=== PATIENT | male | born 1940 | race Caucasian/White ===

== ENCOUNTER → 2016-05-06 | Outpatient (CLI) | payer MEDICARE ==
--- NOTE | 2016-05-06 16:00 | US ---
EXAMINATION TYPE: US scrotum with doppler. Grayscale and color Doppler Duplex imaging performed of juan ramon carlos scrotum. DATE OF EXAM: 05/06/2016 3:28 PM COMPARISON: NONE CLINICAL HISTORY: hematospermia. EXAM MEASUREMENTS: TESTICLES: Right Testicle: 5.5 x 3.6 x 3.6 cm cm Left Testicle: 5.4 x 3.6 x 3.4 cm cm EPIDIDYMIS HEAD: Right Epididymis: 1.5 x 0.9 cm cm Left Epididymis: 1.4 x 1.1 cm cm Doppler performed to assess for testicular vascularity; good bilateral color flow and waveforms are s een. There is no evidence of testicular torsion. Presence of hydroceles: bilaterally, right measures 5.6 x 3.5 x 5.3 cm, left measures 6.1 x 2.4 x 4 .5 cm IMPRESSION: bilateral hydroceles.
== END | disposition home or self-care (01) ==
LOC: RADUSWWP 14:57
PROVIDERS: ATTEND Internal Medicine
DX: N43.3 Hydrocele, unspecified (principal); R36.1 Hematospermia
CPT/HCPCS: 76870; 93975

== ENCOUNTER → 2017-01-17 | Outpatient (CLI) | payer MEDICARE ==
[~2017-01-17] MED LIST: REGADENOSON 0.4 MG/5 ML SYRINGE IV ONE
--- NOTE | 2017-01-17 12:04 | NM ---
EXAMINATION TYPE: NM stress lexiscan cardiolite DATE OF EXAM: 01/17/2017 COMPARISON: NONE HISTORY: Chest pain TECHNIQUE: After the intravenous administration of 9.92 mCi Tc 99m Sestamibi - Cardiolite resting SP ECT images acquired 45 minutes post injection. The patient received 0.4mg Lexiscan, 25.7 mCi Tc 99m Sestamibi - Stress images obtained [address] injection FINDINGS: Review of stress and rest SPECT images demonstrates fixed defect involving the inferior wall the myoc ardium which may be artifactual. Imaging suggestive apical lateral reversible defect which may be art ifactual. Gated analysis shows normal wall motion with an estimated left ventricular ejection fracti on of 63 %. IMPRESSION: 1. Findings suggesting reversed defect apical lateral wall. This may be artifactual correlate [facility] [place].
--- NOTE | 2017-01-17 12:24 | EST ---
EXERCISE STRESS DATE OF SERVICE: 01/17/2017 AGE: 76 SEX: Male HT: 5'9" WT: 256 PROTOCOL: Lexiscan Cardiolite STAGE: DURATION OF EXERCISE: HEART RATE REST: 95 BLOOD PRESSURE REST: 154/85 MAXIMUM HEART RATE ACHIEVED: 127 MAXIMUM BLOOD PRESSURE: 157/91 85% MPHR: 122 100% MPHR: 144 METS: INDICATIONS: CLINICAL INFORMATION: Patient referred by Dr. Casas for stress test. History of coronary artery disease, coronary artery bypass grafting, history of atrial fibrillation and PVCs. Baseline heart rate 95 beats per minute. Baseline blood pressure 154/85 mmHg. Baseline 12-lead ECG shows atrial fibrillation with ST depression consistent with digoxin effect. The patient received Lexiscan infusion per protocol. During Lexiscan infusion, there was further ST depression noted which was further downsloping. Occasional PVCs are noted. Blood pressure and heart rate remained stable. Nuclear portion of stress test will be reported separately. IMPRESSION: 1. Baseline abnormality in the [address] depression consistent with digoxin effect. 2. Further worsening of ST depressions, downsloping at least 2 mm during Lexiscan infusion. Possibly an ischemic response. 3. Occasional PVCs. 4. Baseline atrial fibrillation. 5. Please see nuclear report separately. MMODL / IJN: [id number] /
== END ==
LOC: RADNMMAIN 07:59
PROVIDERS: ATTEND Internal Medicine
DX: I25.719 Atherosclerosis of autologous vein coronary artery bypass graft(s) with unspecified angina pectoris (principal); I48.91 Unspecified atrial fibrillation
CPT/HCPCS: 93017; 78452; A9500; J2785

== ENCOUNTER → 2017-05-20 | Outpatient (CLI) | payer MEDICARE ==
[2017-05-20 11:17] LABS: Prostate Specific Antigen 2.05 ng/mL (0.00-4.00)
[2017-05-20 11:18] LABS: Basophils % (A) 1 %; Eosinophils # (A) 0.2 k/uL (0-0.7); Eosinophils % (A) 2 %; HCT 40.6 % (39.0-53.0); HGB 13.1 gm/dL (13.0-17.5); Lymphocytes # (A) 1.4 k/uL (1.0-4.8); Lymphocytes % (A) 18 %; MCH 28.9 pg (25.0-35.0); MCHC 32.3 g/dL (31.0-37.0); MCV 89.5 fL (80.0-100.0); Mean Platelet Volume 7.9; Monocytes # (A) 0.6 k/uL (0-1.0); Monocytes % (A) 8 %; Neutrophils # (A) 5.2 k/uL (1.3-7.7); Neutrophils % (A) 69 %; Platelet Count 170 k/uL (150-450); RBC 4.53 m/uL (4.30-5.90); RDW 14.6 % (11.5-15.5); WBC 7.5 k/uL (3.8-10.6)
[2017-05-20 11:38] LABS: ALT 47 U/L (21-72); AST 24 U/L (17-59); Albumin 3.8 g/dL (3.5-5.0); Alkaline Phosphatase 68 U/L (38-126); Anion Gap 11 mmol/L; Blood Urea Nitrogen 16 mg/dL (9-20); Calcium 9.8 mg/dL (8.4-10.2); Carbon Dioxide 30 mmol/L (22-30); Chloride 102 mmol/L (98-107); Cholesterol 110 mg/dL (<200); Creatine Kinase 42 U/L (55-170); Glucose 128 mg/dL (74-99); HDL Cholesterol 35 mg/dL (40-60); LDL Cholesterol,Calculated 51 mg/dL (0-99); Magnesium 2.2 mg/dL (1.6-2.3); Potassium 4.8 mmol/L (3.5-5.1); Sodium 143 mmol/L (137-145); Total Bilirubin 0.6 mg/dL (0.2-1.3); Total Protein 6.3 g/dL (6.3-8.2); Triglycerides 118 mg/dL (<150); Uric Acid 7.1 mg/dL (3.5-8.5)
[2017-05-20 11:54] LABS: T4, Free (Free Thyroxine) 1.05 ng/dL (0.78-2.19)
[2017-05-20 13:13] LABS: Appearance,Urine Clear (Clear); Bilirubin,Urine Negative (Negative); Blood,Urine Negative (Negative); Color,Urine Yellow; Glucose,Urine (UA) Negative (Negative); Hyaline Casts,Urine 6 /lpf (0-2); Ketones,Urine Negative (Negative); Leukocyte Esterase,Urine Trace (Negative); Mucus,Urine Rare /hpf; Nitrite,Urine Negative (Negative); Protein,Urine 2+ (Negative); RBC,Urine 3 /hpf (0-5); Specific Gravity,Urine 1.017 (1.001-1.035); Squamous Epithelial Cell,Urine <1 /hpf (0-4); Urobilinogen,Urine <2.0 mg/dL (<2.0); WBC,Urine 7 /hpf (0-5)
[2017-05-20 17:24] LABS: Hemoglobin A1C 5.9 % (4.0-6.0)
== END | disposition home or self-care (01) ==
LOC: LABWHC1 09:51
PROVIDERS: ATTEND Internal Medicine
DX: Z00.00 Encounter for general adult medical examination without abnormal findings (principal); E78.00 Pure hypercholesterolemia, unspecified; I25.719 Atherosclerosis of autologous vein coronary artery bypass graft(s) with unspecified angina pectoris; E03.9 Hypothyroidism, unspecified; N40.0 Benign prostatic hyperplasia without lower urinary tract symptoms; I10 Essential (primary) hypertension
CPT/HCPCS: 36415; 80053; 80061; 81001; 82306; 82550; 83036; 83735; 84153; 84439; 84443; 84550; 85025

== ENCOUNTER → 2017-11-11 | Outpatient (CLI) | payer MEDICARE ==
--- NOTE | 2017-11-11 19:02 | PN ---
PROGRESS NOTE Jason is 77, coming in for followup regarding his obstructive sleep apnea treatment. The patient has severe ANAYA with an AHI of 79. The patient is coming in for a followup and a compliancy check regarding his sleep apnea. The patient was titrated to a CPAP pressure of 12 cm of water. He is reporting marked improvement in his sleep quality in general. His snoring has completely subsided and the patient is not having any snoring. He is using a DreamWear nose mask and he is interested in alternative masks, knowing that he is having some difficulty sleeping on his side or on his face while using this current mask. I checked the compliance data and based on the findings, the patient has been averaging around 5.9 hours of CPAP use per night her. His CPAP use for more than 4 hours is 27/30. Leak factor is 5 L/minute. AHI while on treatment is down to 3.7. The treatment has been extremely successful and the patient is feeling great, alert and refreshed during the day. Current [place] score is down to 4. His current vitals: His blood pressure 128/81, pulse 76, respirations 16, temperature 98.1 weight 264. GENERAL APPEARANCE: Calm, comfortable. No acute distress. Head is atraumatic, normocephalic. NECK: Supple. There is no JVD. No goiter or neck masses. LUNGS: Diminished breath sounds bilaterally, otherwise clear. HEART: Sounds are regular rate and rhythm. Normal S1, S2. No S3. No murmurs. ABDOMEN: Soft, nontender. No organomegaly. EXTREMITIES: No edema. No cyanosis or clubbing. NEUROLOGIC: Alert and oriented x3. There are no focal neurological deficits. PSYCHIATRIC: Negative for anxiety or depression. IMPRESSION: 1. Severe symptomatic obstructive sleep apnea with an apnea-hypopnea index of 79. The patient undergoing successful CPAP therapy. 2. Hypertension. 3. Atrial fibrillation. 4. Coronary artery disease with previous bypass surgery. PLAN: 1. Continue CPAP therapy at the same level of pressure which is 12. 2. Clinically improved. 3. Compliance that was checked and the numbers looked great. 4. Encourage weight loss. 5. Continue the DreamWear mask and the patient was given alternative mask which is a medium-size AirFit and N20 nose mask. He liked this mask and he is considering a switch to it at a later stage. Will continue to follow. MMODL / IJN: [id number] /
== END | disposition home or self-care (01) ==
LOC: SLEEP 15:02
PROVIDERS: ATTEND Internal Medicine Critical Care Medicine
DX: G47.33 Obstructive sleep apnea (adult) (pediatric) (principal); I10 Essential (primary) hypertension; I48.91 Unspecified atrial fibrillation; I25.10 Atherosclerotic heart disease of native coronary artery without angina pectoris; Z99.89 Dependence on other enabling machines and devices

== ENCOUNTER 2018-07-15 11:48 | Emergency (ER) | payer MEDICARE ==
[2018-07-15] MEDS ORDERED: OXYMETAZOLINE 0.05% NASL SPRAY 1 SPRAY BOTTLE NASAL STA (11:56)
--- NOTE | 2018-07-15 12:08 | ED ---
ENT HPI - General Chief complaint: ENT Stated complaint: Nosebleed Time Seen by Provider: 07/15/18 11:56 Source: patient Mode of arrival: ambulatory Limitations: no limitations - History of Present Illness Initial comments: 78-year-old male presents today for chief complaint of nosebleed. Patient states that he has had on and off bleeding of the anterior nare, left sided for the past 3-4 months. She began experiencing nosebleeds on and off 3 times week since March. He states he has seen Dr. Kline for the complaint, ENT specialist who stated it was an anterior bleed due to combination of dry air and patient being on any anticoagulation therapy, xarelto for atrial fibrillation. Patient states that today he began experiencing a nosebleed around 11:30 AM. He states he called Dr. Graham's office who stated they could not fit patient into the schedule until July 27, and was told if he persists to present to the emergency department. Patient stated he used a few doses of Afrin and placed tampon in nose prior to arrival. Patient denies any recent fever, chills, shortness of breath, chest pain, back pain, abdominal pain, nausea or vomiting, numbness or tingling, dysuria or hematuria, constipation or diarrhea, headaches or visual changes, or any other complaints. Patient states he has been using a humidifier at home. Upon arrival patient VS within acceptable limits, appearing well. - Related Data Home Medications Medication Instructions Recorded Confirmed Allopurinol [Zyloprim] 100 mg PO DAILY 03/22/14 07/15/18 Metoprolol Tartrate [Lopressor] 50 mg PO BID 03/22/14 07/15/18 Ramipril 10 mg PO DAILY 03/22/14 07/15/18 Rivaroxaban [Xarelto] 20 mg PO HS 03/22/14 07/15/18 amLODIPine [Norvasc] 5 mg PO DAILY 03/22/14 07/15/18 Calcium Carbonate [Calcium] 600 mg PO DAILY 07/15/18 07/15/18 Furosemide [Lasix] 40 mg PO DAILY 07/15/18 07/15/18 L.acidoph,Paracasei, B.lactis 1 cap PO DAILY 07/15/18 07/15/18 [Probiotic] Levothyroxine Sodium [Synthroid] 300 mcg PO MOTUWETHFRSA 07/15/18 07/15/18 Multivitamin/Iron/Folic Acid 1 tab PO DAILY 07/15/18 07/15/18 [Centrum Complete Multivit Tab] Potassium Chloride [Klor-Con 20] 20 meq PO DAILY 07/15/18 07/15/18 Simvastatin [Zocor] 40 mg PO DAILY 07/15/18 07/15/18 Vit C/E/Zn/Coppr/Lutein/Zeaxan 1 cap PO BID 07/15/18 07/15/18 [Preservision Areds 2 Softgel] Allergies Allergy/AdvReac Type Severity Reaction Status Date / Time No Known Allergies Allergy Verified 07/15/18 12:10 Review of Systems ROS Statement: Those systems with pertinent positive or pertinent negative responses have been documented in the HPI. ROS Other: All systems not noted in ROS Statement are negative. Past Medical History Past Medical History: Atrial Fibrillation, Asthma, Cancer, Hypertension, Thyroid Disorder Additional Past Medical History / Comment(s): THYROID CANCER-1981, Nose bleeds History of Any Multi-Drug Resistant Organisms: None Reported Past Surgical History: Cholecystectomy, Coronary Bypass/CABG Additional Past Surgical History / Comment(s): CABG-2006. THYROIDECTOMY 1981. COLONOSCOPY. REPAIR TORN RETINA-JULY 2013 Past Anesthesia/Blood Transfusion Reactions: No Reported Reaction Past Psychological History: No Psychological Hx Reported Smoking Status: Former smoker Past Alcohol Use History: Occasional Past Drug Use History: None Reported - Past Family History Mother Family Medical History: Cancer General Exam - General Exam Comments Initial Comments: General: The patient is awake and alert, in no distress, and does not appear acutely ill. Eye: Pupils are equal, round and reactive to light, extra-ocular movements are intact. No nystagmus. There is normal conjunctiva bilaterally. No signs of icterus. Ears, nose, mouth and throat: There are moist mucous membranes and no oral lesions. Blood from left nare. No identifiable cause. No blood in oropharynx. Cardiovascular: There is a regular rate and rhythm. No murmur, rub or gallop is appreciated. Respiratory: Lungs are clear to auscultation, respirations are non-labored, breath sounds are equal. No wheezes, stridor, rales, or rhonchi. Musculoskeletal: Normal ROM, no tenderness. Strength 5/5. Sensation intact. Radial pulses equal bilaterally 2+. Neurological: A&O x 3. CN II-XII intact, There are no obvious motor or sensory deficits. Coordination appears grossly intact. Speech is normal. Skin: Skin is warm and dry and no rashes or lesions are noted. Psychiatric: Cooperative, appropriate mood & affect, normal judgment. Limitations: no limitations Course Vital Signs 07/15/18 07/15/18 11:49 12:59 Temperature 97.8 F 98.2 F Pulse Rate 76 81 Respiratory 18 19 Rate Blood Pressure 142/83 138/74 O2 Sat by Pulse 98 97 Oximetry Medical Decision Making - Medical Decision Making 78-year-old male presenting for nosebleed. Patient diagnosed with anterior nosebleed by ENT. Upon arrival patient had tampon inserted and nose, patient instructed to blow, afrin administered then clamp applied. I did reevaluate following pressure there was no evidence of active bleeding, identifiable source. There is no evidence of posterior epistaxis 6 on examination no blood in the oropharynx. Patient appears well vital signs within acceptable limits. Patient was monitored in the emergency department for additional 40 minutes after bleeding had subsided. No active bleeding. I discussed preventative methods for anterior epistaxis as well as importance of follow-up. At this time I feel patient is stable for discharge with outpatient follow-up with ENT st. were discussed with patient. I discussed the case attended by Dr. Carney was agreeable plan discharge. Patient denies questions at this time. Patient discharged appearing well. Disposition Clinical Impression: Nasal bleeding Disposition: HOME SELF-CARE Condition: Good Instructions (If sedation given, give patient instructions): Nosebleed (ED) Additional Instructions: Please use medication as discussed. Please follow-up with DR. Grigsby in July 27 as discussed. Please follow-up with primary care provider in next 2-3 days. Please return to emergency room if the symptoms increase or worsen or for any other concerns. Is patient prescribed a controlled substance at d/c from ED?: No Referrals: Bertin Casas MD [Primary Care Provider] - 1-2 days Demetrio Estrada MD [STAFF PHYSICIAN] - 1-2 days Time of Disposition: 12:35
[2018-07-15 13:00] VITALS: BP 138/74; PULSE 81; RESP 19; TEMP 98.2
== END 2018-07-15 13:00 | disposition home or self-care (01) ==
LOC: EC 11:48
DX: R04.0 Epistaxis (principal); I48.91 Unspecified atrial fibrillation; I10 Essential (primary) hypertension; Z87.891 Personal history of nicotine dependence; Z79.01 Long term (current) use of anticoagulants; Z79.890 Hormone replacement therapy; Z79.899 Other long term (current) drug therapy; Z85.850 Personal history of malignant neoplasm of thyroid; E89.0 Postprocedural hypothyroidism; Z95.1 Presence of aortocoronary bypass graft
CPT/HCPCS: 99283

== ENCOUNTER → 2018-09-14 | Outpatient (CLI) | payer MEDICARE ==
--- NOTE | 2018-09-14 16:36 | CT ---
EXAMINATION TYPE: CT brain wo con DATE OF EXAM: 09/14/2018 COMPARISON: None INDICATION: Acute posttraumatic headache, fall one week prior DLP: 1177 mGycm, Automated exposure control for dose reduction was used. CONTRAST: None CT of the brain is performed utilizing 3 mm thick sections through the posterior fossa and 3 mm thick sections through the remaining calvarium. Study is performed within 24 hours of arrival to the hosp [place]. No abnormal hyperdensity is present to suggest an acute intracranial hemorrhage. No mass lesion is evident. No acute infarcts are evident. Ventricles and sulci are prominent for the patient age. There is a patent cavum septum lucidum, norm al variant. Paranasal sinuses and mastoid air cells within the [id number] are clear. IMPRESSIONS: 1. Mild age-related atrophy. 2. No acute or subacute changes evident
== END | disposition home or self-care (01) ==
LOC: RADCTMAIN 16:17
PROVIDERS: ATTEND Internal Medicine
DX: G31.1 Senile degeneration of brain, not elsewhere classified (principal)
CPT/HCPCS: 70450

== ENCOUNTER → 2019-02-02 | Outpatient (CLI) | payer MEDICARE ==
--- NOTE | 2019-02-02 15:47 | PN ---
PROGRESS NOTE A 78-year-old male patient seeing me in followup regarding obstructive sleep apnea. The patient has severe ANAYA with an AHI of 79 and continues to be treated with a CPAP pressure of 12 cm of water. He is using an Air Fit N20 medium-size nose mask. His weight has been stable. He is extremely compliant. Based on the compliance data, the patient has been averaging around 6 hours of CPAP use per night and his CPAP use for more than 4 hours is 100%. Leak is 11 L/minutes. His AHI is down to 1.2. No major hypersomnia or sleepiness during the day. He is awake and alert and his [place] score is down to 2. No difficulties in tolerating his CPAP unit and the machine is functional and the patient is benefitting from the treatment. REVIEW OF SYSTEMS: A 14-point review of system was done. Positive findings are mentioned in history of present illness. PHYSICAL EXAMINATION: BP is 135/92, pulse 61, respirations 16, temperature 98.1, saturation 97% on room air. Weight is 266. Height is 5,7. [place] score is 4, BMI is 41.6. GENERAL APPEARANCE: Calm comfortable. HEENT: Head is atraumatic, normocephalic. NECK: Supple. No JVD. No goiter or neck mass. Mallampati class IV. LUNGS: Clear to auscultation. HEART: Sounds regular rate and rhythm. Normal S1, S2. No murmurs. ABDOMEN: Soft, nontender. No organomegaly. EXTREMITIES: No edema. No cyanosis or clubbing. NEUROLOGIC: Alert and oriented x3. No focal neurological deficits. PSYCHIATRIC: Negative for anxiety or depression. IMPRESSION: Obstructive sleep apnea, severe with an apnea-hypopnea index of 79, currently on CPAP with a pressure of 12 with ongoing success in terms of his clinical response and compliance. PLAN: 1. Encourage weight loss. 2. Continue CPAP at same level of pressure which is 12. 3. Refill the Air Fit N20 medium-size nose mask. 4. Implement good sleep hygiene measures. 5. Will continue to follow treatment successfully, refills were given. MMODL / IJN: [id number] /
== END | disposition home or self-care (01) ==
LOC: SLEEP 13:15
PROVIDERS: ATTEND Internal Medicine Critical Care Medicine
DX: G47.33 Obstructive sleep apnea (adult) (pediatric) (principal); Z99.89 Dependence on other enabling machines and devices

== ENCOUNTER 2019-08-20 17:07 | Emergency (ER) | payer MEDICARE ==
[2019-08-20] MEDS ORDERED: LIDOCAINE 1%-EPI 1:100,000 20 ML VIAL SQ STA (17:22)
[2019-08-20] MEDS ORDERED: DIPH,PERTUS(ACELL)TETVAC-LF 0.5 ML VIAL IM ONE (17:23)
[2019-08-20 17:26] VITALS: RESP 18; TEMP 98.1
--- NOTE | 2019-08-20 17:47 | ED ---
General Adult HPI - General Chief complaint: Fall Stated complaint: fall Time Seen by Provider: 08/20/19 17:22 Source: patient, RN notes reviewed Mode of arrival: wheelchair Limitations: no limitations - History of Present Illness Initial comments: 79-year-old male with a past medical history of atrial fibrillation currently on Xarelto, asthma, thyroid cancer, hypertension presents to the emergency department for a chief complaint of head injury. Patient was standing earlier when he lost his footing and tripped falling and hitting the front of his head. He states at that time he was carrying items into the garage. Patient did not lose consciousness. Patient denies neck pain. Patient denies any dizziness or lightheadedness preceding this fall. Denies any chest pain preceding this fall. Patient states he feels completely fine at this point.Patient has no other complaints at this time including shortness of breath, chest pain, abdominal pain, nausea or vomiting, headache, or visual changes. - Related Data Home Medications Medication Instructions Recorded Confirmed Allopurinol [Zyloprim] 100 mg PO DAILY 03/22/14 08/20/19 Metoprolol Tartrate [Lopressor] 50 mg PO BID 03/22/14 08/20/19 RX: Ramipril 10 mg PO DAILY 03/22/14 08/20/19 Rivaroxaban [Xarelto] 20 mg PO HS 03/22/14 08/20/19 amLODIPine [Norvasc] 5 mg PO DAILY 03/22/14 08/20/19 Calcium Carbonate [Calcium] 600 mg PO DAILY 07/15/18 08/20/19 Furosemide [Lasix] 40 mg PO DAILY 07/15/18 08/20/19 L.acidoph,Paracasei, B.lactis 1 cap PO DAILY 07/15/18 08/20/19 [Probiotic] Levothyroxine Sodium [Synthroid] 300 mcg PO DAILY 07/15/18 08/20/19 Multivitamin/Iron/Folic Acid 1 tab PO DAILY 07/15/18 08/20/19 [Centrum Complete Multivit Tab] Potassium Chloride [Klor-Con 20] 20 meq PO DAILY 07/15/18 08/20/19 Simvastatin [Zocor] 40 mg PO DAILY 07/15/18 08/20/19 Vit C/E/Zn/Coppr/Lutein/Zeaxan 1 cap PO BID 07/15/18 08/20/19 [Preservision Areds 2 Softgel] Acetaminophen Tab [Tylenol Tab] 1,000 mg PO ONCE PRN 08/20/19 08/20/19 Allergies Allergy/AdvReac Type Severity Reaction Status Date / Time No Known Allergies Allergy Verified 08/20/19 19:24 Review of Systems ROS Statement: Those systems with pertinent positive or pertinent negative responses have been documented in the HPI. ROS Other: All systems not noted in ROS Statement are negative. Past Medical History Past Medical History: Atrial Fibrillation, Asthma, Cancer, Hypertension, Thyroid Disorder Additional Past Medical History / Comment(s): THYROID CANCER-1981, Nose bleeds History of Any Multi-Drug Resistant Organisms: None Reported Past Surgical History: Cholecystectomy, Coronary Bypass/CABG, Joint Replacement, Orthopedic Surgery Additional Past Surgical History / Comment(s): CABG-2006. THYROIDECTOMY 1981. COLONOSCOPY. REPAIR TORN RETINA-JULY 2013. knee replacemnt Past Anesthesia/Blood Transfusion Reactions: No Reported Reaction Past Psychological History: No Psychological Hx Reported Smoking Status: Former smoker Past Alcohol Use History: Occasional Past Drug Use History: None Reported - Past Family History Mother Family Medical History: Cancer General Exam Limitations: no limitations General appearance: alert, in no apparent distress Head exam: Present: normocephalic, normal inspection. Absent: atraumatic Eye exam: Present: normal appearance, PERRL, EOMI. Absent: scleral icterus, conjunctival injection, periorbital swelling ENT exam: Present: normal exam, normal oropharynx (Teeth are intact), mucous membranes moist Neck exam: Present: normal inspection, full ROM. Absent: tenderness, meningismus, lymphadenopathy Respiratory exam: Present: normal lung sounds bilaterally. Absent: respiratory distress, wheezes, rales, rhonchi, stridor Cardiovascular Exam: Present: regular rate, normal rhythm, normal heart sounds. Absent: systolic murmur, diastolic murmur, rubs, gallop, clicks GI/Abdominal exam: Present: soft, normal bowel sounds. Absent: distended, tenderness, guarding, rebound, rigid Extremities exam: Present: other (Moving all extremities without difficulty) Back exam: Absent: vertebral tenderness (No thoracic or lumbar spine tenderness) Neurological exam: Present: alert, oriented X3, normal gait, other (GCs 15) Course Vital Signs 08/20/19 08/20/19 17:18 17:54 Temperature 98.1 F Pulse Rate 107 H 108 H Respiratory 18 18 Rate Blood Pressure 133/84 133/84 O2 Sat by Pulse 97 97 Oximetry Procedures - Laceration Laceration #1 Consent Obtained: verbal consent Indication: laceration Site: face Size (cm): 8 Description: linear Depth: simple, single layer Anesthetic Used: lidocaine 1%, with epi Anesthesia Technique: local infiltration Amount (mls): 8 Pre-repair: wound explored, irrigated extensively, deep structures intact Type of Sutures: other (ethilon) Size of Sutures: 5-0 Number of Sutures: 12 Technique: simple, interrupted Patient Tolerated Procedure: well, no complications Medical Decision Making - Medical Decision Making Patient presents for fall from standing. Fall was purely mechanical. States he was carrying some things in his carotid when he tripped and fell forward hitting his head on the car. He did not have any lightheadedness, chest pain, shortness of breath preceding this fall. CT brain showed mild periventricular white matter ischemic changes with soft tissue swelling to the frontal region. CT cervical spine showed no acute osseous abnormality. CT showed no acute facial fractures. Sutures were applied to the area and wound was well approximated. Bleeding controlled. Patient will follow up with primary care and will return here in 7-10 days for suture removal. Disposition Clinical Impression: Fall, Head injury, Laceration Disposition: HOME SELF-CARE Condition: Good Instructions (If sedation given, give patient instructions): Care For Your Stitches (ED), Laceration (ED), Head Injury (ED) Additional Instructions: Please return in 7-10 days for suture removal. You have 12 sutures placed. Follow-up with your doctor in one to 2 days for a recheck. If you have any worsening symptoms or signs of infection return to the emergency department. Is patient prescribed a controlled substance at d/c from ED?: No Referrals: Bertin Casas MD [Primary Care Provider] - 1-2 days Time of Disposition: 19:39
--- NOTE | 2019-08-20 17:56 | CT ---
EXAMINATION TYPE: CT brain raquel portillo con DATE OF EXAM: 08/20/2019 COMPARISON: 09/14/2018 HISTORY: Lip laceration from fall injury CT DLP: 1250.6 mGycm, Automated exposure control for dose reduction was used. CONTRAST: Patient injected with 0 mL of Isovue 300. CT of the brain is performed utilizing 3 mm thick sections through the posterior fossa and 3 mm thick sections through the remaining calvarium. Study is performed within 24 hours of arrival to the hospital. There is soft tissue swelling over the frontal region. No abnormal hyperdensity is present to suggest an acute intracranial hemorrhage. No mass lesion is evident. No acute infarcts are evident. Mild periventricular white matter hypodensity may be present compatib le with microvascular ischemic change. Ventricles and sulci are appropriate for the patient age. There are patent cavum septum lucidum and c avum vergae, normal variants. Paranasal sinuses and mastoid air cells within the [id number] are clear. No acute fractures are ev ident. Nasal bridge appears intact. Additional osseous structures are normal. Paranasal sinuses and m astoid air cells are clear. IMPRESSIONS: 1. Mild periventricular white matter ischemic type changes. 2. Superficial soft tissue swelling frontal region CT cervical spine. COMPARISON: None CT of the cervical spine is performed in the axial plane at 2 mm thick sections. Reconstructed image s in the coronal, and sagittal plane are reviewed on the computer. No acute fractures are evident. Vertebral body alignment is normal. Disc space narrowing is present C5-6 C6-7. Anterior vertebral body spurring is present at these level s. Some posterior endplate spurring is present C6-7. Vertebral body heights are preserved. Left foraminal narrowing at C3-4 is present due to facet hypertrophy. Endplate changes may have mild anterior thecal sac compression at C6-7. IMPRESSIONS: 1. No acute osseous abnormality cervical spine. 2. Degenerative changes disc and foramen discussed above.
--- NOTE | 2019-08-20 17:58 | CT ---
EXAMINATION TYPE: CT facial bones wo con DATE OF EXAM: 08/20/2019 COMPARISON: None HISTORY: Lip laceration after fall injury CT DLP: 1250.6 mGycm CONTRAST: None mL of Facial bones are examined in the axial plane at 2 mm thick sections. Reconstructed images in the [place] nal plane are reviewed. There is dental amalgam scatter artifact The maxillary sinuses are clear. Maxillary spine is intact. The ethmoid air cells are clear. The sph enoid sinuses are clear. The frontal sinuses are clear. Zygomatic arches are intact. Nasal bones ar e intact. Greater wings of sphenoid are unremarkable. Soft tissue swelling over the frontal region is noted. No underlying fracture is evident. Temporomandibular junctions appear normal. The septum is evaluated. There is septal deviation to the right. The ostiomeatal units are patent. IMPRESSIONS: 1. No acute fractures facial bones.
[2019-08-20 19:51] VITALS: BP 155/103; PULSE 101
== END 2019-08-20 20:10 | disposition home or self-care (01) ==
LOC: EC 17:07
DX: S01.81XA Laceration without foreign body of other part of head, initial encounter (principal); R40.2412 Glasgow coma scale score 13-15, at arrival to emergency department; I48.91 Unspecified atrial fibrillation; I10 Essential (primary) hypertension; Z85.850 Personal history of malignant neoplasm of thyroid; Z95.1 Presence of aortocoronary bypass graft; Z96.659 Presence of unspecified artificial knee joint; Z87.891 Personal history of nicotine dependence; Z79.01 Long term (current) use of anticoagulants; Z79.890 Hormone replacement therapy; Z79.899 Other long term (current) drug therapy; Z23 Encounter for immunization; W01.198A Fall on same level from slipping, tripping and stumbling with subsequent striking against other object, initial encounter; Y93.01 Activity, walking, marching and hiking; Y92.009 Unspecified place in unspecified non-institutional (private) residence as the place of occurrence of the external cause
CPT/HCPCS: 12015; 70450; 70486; 72125; 90471; 90715; 99283

== ENCOUNTER → 2020-01-28 | Outpatient (CLI) | payer MEDICARE ==
--- NOTE | 2020-01-28 13:19 | CT ---
EXAMINATION TYPE: CT urogram wo/w con DATE OF EXAM: 01/28/2020 COMPARISON: None. HISTORY: Episodes of hematuria. CT DLP: 3772 mGycm, Automated Exposure Control for Dose Reduction was Utilized. CONTRAST: CT scan of the abdomen and pelvis is performed without oral and without and with IV Contrast, patient injected with 100 mL of Isovue 300. Urogram protocol. Three-D reconstructed images created on an [employer] workstation and reviewed. FINDINGS: KUB: No renal stones are evident bilaterally. Some cortical thinning in both kidneys. There is symmet duy cortical medullary uptake and excretion without hydronephrosis seen bilaterally. There is exophyt ic 2.5 x 2.1 cm low dense lesion right kidney posterior lateral aspect midpole level, Hounsfield unit s average 27 on noncontrast images without significant postcontrast enhancement, proteinaceous cyst i s suspected. No concerning additional solid or cystic mass bilaterally. Incomplete contrast opacifica tion of ureters bilaterally. No obvious mass or focal dilatation. Bladder not greatly distended witho ut suspicious intraluminal mass or calculus. LUNG BASES: Mild left basilar linear scarring. Slightly elevated left hemidiaphragm. Coronary artery calcification in the RCA distribution. Sternal wires partially imaged. Cardiomegaly noted. Liver/gallbladder: Cholecystectomy clips. PANCREAS: No significant abnormality is seen. SPLEEN: No significant abnormality is seen. ADRENALS: No significant abnormality is seen. BOWEL: Colonic diverticulosis greatest in the transverse, left, and sigmoid colon. PROSTATE/SEMINAL VESICLES: Enlarged prostate gland consistent with BPH bulging on bladder base LYMPH NODES: No greater than 1cm abdominal or pelvic lymph nodes are appreciated. OSSEOUS STRUCTURES: Age-indeterminate possible subacute fracture of the T12 vertebra with some lucenc y and sclerosis noted, mild height loss sagittal image 92 series 11 noted. OTHER: Moderate calcified plaque abdominal aorta extends into branch vessels. Moderate size fat-conta ining right inguinal hernia. IMPRESSION: 1. No suspicious findings seen to account for patient's symptoms of hematuria. 2. Enlarged prostate gland consistent with BPH. 3. Suspect subacute burst type fracture of the T12 vertebra, correlate clinically.
== END | disposition home or self-care (01) ==
LOC: RADCTMAIN 10:18
PROVIDERS: ATTEND Internal Medicine
DX: N40.0 Benign prostatic hyperplasia without lower urinary tract symptoms (principal); R31.21 Asymptomatic microscopic hematuria
CPT/HCPCS: 82565; 84520; 74178; 36415; 74400; Q9967

== ENCOUNTER → 2020-02-15 | Outpatient (CLI) | payer MEDICARE ==
--- NOTE | 2020-02-15 15:09 | P.PN ---
Subjective Progress Note Date: 02/15/20 79-year-old male patient with established diagnosis of severe ANAYA. His based on AHI is 79. The patient has been on CPAP therapy at a pressure of 12 cm of water. Since his last visitation approximately year ago, the patient's compliance has progressively gotten worse. He attributes this to the araiza virus: 19 pandemic. He also attributes this to the surgery that he had which involved the right knee replacement. During this time, he was having difficulties and putting the CPAP machine on and he was taken and off and he is compliancy dataaccurately reflect that. For instance, based on a thirty-day compliancy, he has put on the machine 28 out of 30 days. Nevertheless he has achieved more than 4 hours only 1 out of 30 days. His been averaging around 2.4 hours of CPAP use per night. While the treatment is on, his AHI is down to 1.7 and his decrease in order of 12 L per minute. He has an [id number] medium sized nodes mask. His weight is down. He used to weigh 266 pounds and currently is down to 48. Along with a suboptimal compliancy, the patient has become a bit more somnolent and sleepy during the day. His [place] score is at 3. No angina. No palpitations. No cardiac arrhythmias. He has hypertension, hypothyroidism, hyperlipidemia and chronic anxiety as comorbid conditions. He has also chronic atrial fibrillation. Objective - Exam BP is 140/81, pulse is 74, respirations 16, temperature is 90.8, height is 57, weight is 248 pounds,BMI 38.8, saturations 96% on room air, and forth score is at 3. The patient appeared well nourished and normally developed. Vital signs as documented. Head exam is unremarkable. No scleral icterus or corneal arcus noted. Neck is without jugular venous distension, thyromegaly, or carotid bruits. Carotid upstrokes are brisk bilaterally. Lungs are clear to auscultation and percussion. Cardiac exam reveals the PMI to be normally sized and situated. Rhythm is regular. First and second heart sounds normal. No murmurs, rubs or gallops. Abdominal exam reveals normal bowel sounds, no masses, no organomegaly and no aortic enlargement. Extremities are nonedematous and both femoral and pedal pulses are normal.Examination of the skin revealed no evidence of significant rashes, suspicious appearing nevi or other concerning lesions.Neurologically, the patient is awake and alert and the patient does not have any focal neurological deficit. Cranial nerves are essentially intact. Assessment and Plan Plan: 1obstructive sleep apnea, severe with an AHI of 79, currently on a CPAP pressure of 12 cm of water with a suboptimal compliancy 2 hypersomnia secondary to above 3 obesity with a BMI 38.8 with an interval 18 pounds weight loss 4 hypertension 5 chronic atrial fibrillation 6 hypothyroidism 7 hyperlipidemia 8 osteoarthritis and the patient undergone a Right knee replacement Plan explained to the patient importance of being compliant to CPAP therapy. The patient is committed to the treatment and he would like to gradually inc rease his compliance over the next few months. A new mask was given and the pressure setting will be kept unchanged. I'm glad to see the patient is losing weight. He has become gradually more active as the patient has recovered from his knee surgery. Would like to see the patient a year time and hopefully the compliance data will look much better than what it is right now. No other new complaints for now. No need to repeat this study will do any changes on his machine. Would like to have him see use the CPAP machine overnight for more than 4 hours. We'll continue to follow.
== END | disposition home or self-care (01) ==
LOC: SLEEP 14:09
PROVIDERS: ATTEND Internal Medicine Critical Care Medicine
DX: G47.33 Obstructive sleep apnea (adult) (pediatric) (principal); G47.10 Hypersomnia, unspecified; E66.9 Obesity, unspecified; I10 Essential (primary) hypertension; E03.9 Hypothyroidism, unspecified; E78.5 Hyperlipidemia, unspecified; M17.11 Unilateral primary osteoarthritis, right knee; I48.20 Chronic atrial fibrillation, unspecified; Z96.651 Presence of right artificial knee joint; Z99.89 Dependence on other enabling machines and devices; Z68.38 Body mass index [BMI] 38.0-38.9, adult

== ENCOUNTER 2020-02-18 19:04 | Emergency (ER) | payer MEDICARE ==
[2020-02-18 19:09] VITALS: TEMP 98
[2020-02-18] MEDS ORDERED: TRANEXAMIC ACID 1,000 MG/10 ML VIAL IRRIGATION ONE (19:44)
[2020-02-18] MEDS ORDERED: OXYMETAZOLINE 0.05% NASL SPRAY 1 SPRAY BOTTLE NASAL STA (20:27)
--- NOTE | 2020-02-18 21:19 | ED ---
ENT HPI - General Chief complaint: ENT Stated complaint: RT ear bleeding Time Seen by Provider: 02/18/20 19:10 Source: patient Mode of arrival: ambulatory Limitations: physical limitation - History of Present Illness Initial comments: Patient is a 79-year-old male with past history of coronary artery bypass grafting Hans[place] who presents emergency room with reported bleeding from the right ear. Patient states he was using a Q-tip this morning to attempt to clean wax out when it started bleeding. He did so throughout the day however picked up again at night. Patient is hard of hearing. Denies any hearing changes. Denies any ear pain. No fevers or chills. No pustular drainage. No alleviating, precipitating or modifying factors - Related Data Home Medications Medication Instructions Recorded Confirmed Metoprolol Tartrate [Lopressor] 50 mg PO BID 03/22/14 08/20/19 Ramipril 10 mg PO DAILY 03/22/14 08/20/19 Rivaroxaban [Xarelto] 20 mg PO HS 03/22/14 08/20/19 allopurinoL [Zyloprim] 100 mg PO DAILY 03/22/14 08/20/19 amLODIPine [Norvasc] 5 mg PO DAILY 03/22/14 08/20/19 Calcium Carbonate [Calcium] 600 mg PO DAILY 07/15/18 08/20/19 Furosemide [Lasix] 40 mg PO DAILY 07/15/18 08/20/19 L.acidoph,Paracasei, B.lactis 1 cap PO DAILY 07/15/18 08/20/19 [Probiotic] Levothyroxine Sodium [Synthroid] 300 mcg PO DAILY 07/15/18 08/20/19 Multivitamin/Iron/Folic Acid 1 tab PO DAILY 07/15/18 08/20/19 [Centrum Complete Multivit Tab] Potassium Chloride [Klor-Con 20] 20 meq PO DAILY 07/15/18 08/20/19 Simvastatin [Zocor] 40 mg PO DAILY 07/15/18 08/20/19 Vit C/E/Zn/Coppr/Lutein/Zeaxan 1 cap PO BID 07/15/18 08/20/19 [Preservision Areds 2 Softgel] Acetaminophen Tab [Tylenol Tab] 1,000 mg PO ONCE PRN 08/20/19 08/20/19 Previous Rx's Medication Instructions Recorded Ofloxacin 0.3% Otic Soln [Floxin 10 drops RIGHT EAR DAILY #1 bottle 02/18/20 0.3% Otic Soln] Allergies Allergy/AdvReac Type Severity Reaction Status Date / Time No Known Allergies Allergy Verified 02/18/20 19:09 Review of Systems ROS Statement: Those systems with pertinent positive or pertinent negative responses have been documented in the HPI. ROS Other: All systems not noted in ROS Statement are negative. Past Medical History Past Medical History: Atrial Fibrillation, Asthma, Cancer, Hypertension, Thyroid Disorder Additional Past Medical History / Comment(s): THYROID CANCER-1981, Nose bleeds History of Any Multi-Drug Resistant Organisms: None Reported Past Surgical History: Cholecystectomy, Coronary Bypass/CABG, Joint Replacement, Orthopedic Surgery Additional Past Surgical History / Comment(s): CABG-2006. THYROIDECTOMY 1981. COLONOSCOPY. REPAIR TORN RETINA-JULY 2013. knee replacemnt Past Anesthesia/Blood Transfusion Reactions: No Reported Reaction Past Psychological History: No Psychological Hx Reported Smoking Status: Never smoker Past Alcohol Use History: Occasional Past Drug Use History: None Reported - Past Family History Mother Family Medical History: Cancer General Exam Limitations: physical limitation General appearance: alert, in no apparent distress Head exam: Present: atraumatic, normocephalic, normal inspection Eye exam: Present: normal appearance, PERRL, EOMI. Absent: scleral icterus, conjunctival injection, periorbital swelling ENT exam: Present: normal exam, mucous membranes moist, other (excoriated right ear canal with active oozing. TM appears intact without bleeding. No putsular drainage. No lacerations ) Course Vital Signs 02/18/20 02/18/20 19:06 22:38 Temperature 98.0 F Pulse Rate 87 79 Respiratory 18 19 Rate Blood Pressure 184/90 169/79 O2 Sat by Pulse 98 98 Oximetry Medical Decision Making - Medical Decision Making Upon arrival the patient is placed in room 27. A thorough history and physical exam was performed. Examination of the patient's right ear does demonstrate excoriations throughout the whole auditory canal. There is active oozing. Because of this I did swab the canal in place Afrin instilled in the ear. P atient is evaluated after 5 minutes and continues to have oozing. I then used a cotton pledget placed TXA in the ear for 10 minutes. Patient continued to have oozing and therefore I called Dr. Reynoso. He does recommend placing thrombin powder in the patient's ear after irrigating it. He then recommended wick placement, Afrin twice daily and a cotton ball to the external ear canal to hold the wick in place. This is performed. I did discuss with the patient's that she is going to instill Afrin twice daily. The cotton ball may be removed and then replaced. They're to call Dr. Reynoso's office on Friday for follow- up appointment. At any new or worsening symptoms return to the emergency room. Patient was in agreement with the plan and he was discharged home stable condition Disposition Clinical Impression: Bleeding from right ear, Anticoagulation adequate Disposition: HOME SELF-CARE Condition: Stable Instructions (If sedation given, give patient instructions): Earache (ED) Additional Instructions: Call Dr. Reynoso on Friday to make an appointment. Remove the cotton ball, place 4 drops of Afrin in the right ear. Wet the cotton ball with the sterile water and replaced the cotton ball back in the ear. It might continue to ooze. Return to the ED for any new or worsening symptoms. Prescriptions: Ofloxacin 0.3% Otic Soln [Floxin 0.3% Otic Soln] 10 drops RIGHT EAR DAILY #1 bottle Is patient prescribed a controlled substance at d/c from ED?: No Referrals: Bertin Casas MD [Primary Care Provider] - 1-2 days Robby Reynoso MD [STAFF PHYSICIAN] - 1-2 days Time of Disposition: 21:18
[2020-02-18] MEDS ORDERED: THROMBIN (BOVINE) 5,000 UNIT VIAL TOPICAL STA (21:55)
[2020-02-18 22:38] VITALS: BP 169/79; PULSE 79; RESP 19
== END 2020-02-18 22:39 | disposition home or self-care (01) ==
LOC: EC 19:04
DX: S00.411A Abrasion of right ear, initial encounter (principal); H92.21 Otorrhagia, right ear; I10 Essential (primary) hypertension; I48.91 Unspecified atrial fibrillation; Z79.890 Hormone replacement therapy; Z79.01 Long term (current) use of anticoagulants; Z79.899 Other long term (current) drug therapy; Z96.659 Presence of unspecified artificial knee joint; Z85.850 Personal history of malignant neoplasm of thyroid; X58.XXXA Exposure to other specified factors, initial encounter
CPT/HCPCS: 99282

== ENCOUNTER → 2020-06-08 | Outpatient (CLI) | payer MEDICARE ==
--- NOTE | 2020-06-08 12:31 | US ---
EXAMINATION TYPE: US kidneys/renal and bladder DATE OF EXAM: 06/08/2020 COMPARISON: NONE CLINICAL HISTORY: R31.9 Hematuria. microscopic hematuria with no symptoms, large body habitus EXAM MEASUREMENTS: Right Kidney: 10.5 x 6.2 x 5.8 cm Left Kidney: 12.8 x 5.5 x 7.0 cm Right Kidney: 1.6 x 1.8 x 1.7cm superior pole exophytic cyst Left Kidney: No hydronephrosis or masses seen Bladder: wnl IMPRESSION: 1. Right renal cyst
== END | disposition home or self-care (01) ==
LOC: RADUSWWP 11:53
PROVIDERS: ATTEND Internal Medicine
DX: N28.1 Cyst of kidney, acquired (principal)
CPT/HCPCS: 76770

== ENCOUNTER → 2021-02-20 | Outpatient (CLI) | payer MEDICARE ==
--- NOTE | 2021-02-20 19:41 | PN ---
PROGRESS NOTE This is an 80-year-old male patient with known history of severe obstructive sleep apnea with an AHI of 79, coming in today for followup accompanied by his , who also has a history of obstructive sleep apnea. Both and are CPAP users. The patient is currently on a pressure of 12 cm of water. The patient is having some difficulties. He initially starts out sleeping in bed and later on, within 2 to 3 hours into sleep, he goes out and sleeps on a recliner without his CPAP unit. This is obviously reflected on his diminished compliance data on today's evaluation. I checked his CPAP machine. The patient puts on the machine every night. He has no issues in initiating sleep. His CPAP use is around 29 out of the past 30 days. His CPAP use for more than 4 hours is 0/30, as the patient has been averaging only 2.2 hours of CPAP use per night with a leak of 4 L/minute, and his AHI is down to 1.1. No major tiredness, sleepiness or hypersomnia during the day. He seems to be sleeping better on the recliner. He wants to gradually transition to sleep on a recliner. Otherwise, his condition is stable. His weight is up by around 6 to 8 pounds since his last evaluation. No recent congestive heart failure or cardiac arrhythmias or stroke. No other new-onset comorbidities. Medications remain unchanged. MEDICATIONS: Medication list includes: 1. Allopurinol 100 mg p.o. daily. 2. Norvasc 5 mg p.o. daily. 3. Lasix 40 mg p.o. daily. 4. Metoprolol 50 mg XL one tablet a day. 5. Altace 10 mg p.o. daily. 6. Potassium 20 mEq daily. 7. Zocor 40 mg p.o. daily. 8. Synthroid 0.3 mg p.o. daily. 9. Trazodone 100 mg p.o. daily. 10.Valium as needed. 11.Xarelto 20 mg p.o. daily. SOCIAL HISTORY: Nonsmoker. No history of alcoholism. No history of IV drugs. REVIEW OF SYSTEMS: Fourteen-point review of system was done. Positive findings are all mentioned above in history of present illness. PHYSICAL EXAMINATION: BP is 153/83, pulse 63, respirations 16, temperature 97.1, weight 256. Height is 5 feet 4 inches, BMI 38.9. [place] score is down to 4. Saturation 96%. GENERAL APPEARANCE: Calm, comfortable. No acute distress. HEAD: Atraumatic, normocephalic. NECK: Supple. Mallampati class IV. There is no goiter or neck masses. LUNGS: Diminished. Otherwise clear. Heart sounds are regular rate and rhythm. Normal S1, S2. No S3, S4. No murmurs. ABDOMEN: Soft, nontender. No organomegaly. EXTREMITIES: No edema. No cyanosis or clubbing. IMPRESSION: 1. Severe obstructive sleep apnea, AHI of 79, currently on CPAP pressure of 12. Suboptimal compliancy. 2. Hypersomnia, stable. [place] score is 4. 3. Obesity with a BMI of 38.9. 4. Hypertension. 5. Chronic atrial fibrillation. 6. Hypothyroidism. 7. Hyperlipidemia. 8. Degenerative arthritis. PLAN: 1. Encourage weight loss. 2. Encouraged to sleep on a recliner move the recliner to the bedroom if possible, as this should improve his compliancy on his CPAP use. 3. Monitor CPAP compliancy data. 4. Keep same mask interface. 5. I counseled this patient on the importance of CPAP use. 6. See me back in a year's time in followup. No change in the pressure setting. MMODL / IJN: [id number] /
== END ==
LOC: SLEEP 14:47
PROVIDERS: ATTEND Internal Medicine Critical Care Medicine
DX: G47.33 Obstructive sleep apnea (adult) (pediatric) (principal); E66.9 Obesity, unspecified; I10 Essential (primary) hypertension; I48.91 Unspecified atrial fibrillation; E03.9 Hypothyroidism, unspecified; E78.5 Hyperlipidemia, unspecified; M19.90 Unspecified osteoarthritis, unspecified site; Z99.89 Dependence on other enabling machines and devices; Z68.38 Body mass index [BMI] 38.0-38.9, adult; Z79.899 Other long term (current) drug therapy; Z87.891 Personal history of nicotine dependence

== ENCOUNTER → 2022-05-07 | Outpatient (CLI) | payer MEDICARE ==
--- NOTE | 2022-05-07 14:53 | P.PN ---
Progress Note - Text Progress Note Date: 05/07/22 This is a 82-year-old male patient with known history of COPD obstructive sleep apnea. The patient has an AHI of 79 based on an earlier sleep study. The patient was given a CPAP machine and the patient was being treated with CPAP pressure of 12 cm of water. His last evaluation with me was back in 02/20/2021. At that time, I noticed that the patient's compliancy was not great. I kept on working on him to improve his compliancy and improve various habits that the patient has. For instance, the patient is sleeping on the recliner. He sleeps in his living room. He has the TV on during sleep. He watches evening news which irritates him quite a bit and he is unable to generate a maintaining sleep. His efforts to maintain his CPAP machine on has failed accordingly. The patient is bothered and is unable to keep it for prolonged number of hours. I noticed that over the past 30 days, the patient has used his machine only 3 out of 30 days and he has achieved more than 4 hours is 0 out of 30 days. His been averaging only 0.6 hours of CPAP use per night and his AHI is down to 1.9 while on treatment with a leak of 1 L/m. He has the N20 nasal mask. He is known to have multiple medical problems and comorbidities. I believe, the patient will need to have another evaluation with a home sleep study to review and he is tender severity of sleep apnea while he is sleeping on a recliner to decide if ongoing treatment is needed. His other comorbidities are essentially inactive and stable. His of chronic into fibrillation, obesity, hypertension and hypothyroidism and osteoarthritis. His weight is currently at 232 which is essentially lower compared to last year. Back then, the patient used to weigh 256 pounds. BP is 134/89 with a pulse of 75 and a respiration of 20 with a weight of 232 and the temperature is 98.1. His aport score is at 1. His oxygen saturation 97% on room air oxygen The patient appeared well nourished and normally developed. Vital signs as documented. Head exam is unremarkable. No scleral icterus or corneal arcus n oted. Neck is without jugular venous distension, thyromegaly, or carotid bruits. Carotid upstrokes are brisk bilaterally. Lungs are clear to auscultation and percussion. Cardiac exam reveals the PMI to be normally sized and situated. Rhythm is regular. First and second heart sounds normal. No murmurs, rubs or gallops. Abdominal exam reveals normal bowel sounds, no masses, no organomegaly and no aortic enlargement. Extremities are nonedematous and both femoral and pedal pulses are normal.Examination of the skin revealed no evidence of significant rashes, suspicious appearing nevi or other concerning lesions.Neurologically, the patient is awake and alert and the patient does not have any focal neurological deficit. Cranial nerves are essentially intact. Assessment Severe ANAYA with an AHI of 79, offered CPAP therapy the pressure of 12, compliancy remains suboptimal due to poor sleep hygiene measures and various other habits that the patient has acquired over the years as stated in my hi story. Nevertheless, the patient has lost weight and he feels well without any major hypersomnia or sleepiness. A reevaluation in his new sleeping environment is to be done Obesity Chronic atrial fibrillation Hypertension Hypothyroidism Hyperlipidemia Osteoarthritis Plan Stop CPAP therapy Obtain a home sleep study to be established diagnosis and decide if ongoing treatment is needed The patient is to work on sleep hygiene measures He needs to turn off the TV prior to going to bed He needs to turn off the radial prior to going to bed He is asleep with the head of the recliner elevated at 30 Maintain adequate sleep hygiene measures We'll continue to follow
== END ==
LOC: SLEEP 14:01
PROVIDERS: ATTEND Internal Medicine Critical Care Medicine
DX: G47.33 Obstructive sleep apnea (adult) (pediatric) (principal); E66.9 Obesity, unspecified; I10 Essential (primary) hypertension; E03.9 Hypothyroidism, unspecified; I48.20 Chronic atrial fibrillation, unspecified; M19.90 Unspecified osteoarthritis, unspecified site; E78.5 Hyperlipidemia, unspecified; Z99.89 Dependence on other enabling machines and devices; Z87.891 Personal history of nicotine dependence
CPT/HCPCS: 99212

== ENCOUNTER 2022-08-28 13:48 | Emergency (ER) | payer MEDICARE ==
[2022-08-28 14:24] LABS: Glucose,Whole Blood 146 mg/dL (70-110)
[2022-08-28 15:25] LABS: Basophils % (A) 0 %; Eosinophils # (A) 0.1 k/uL (0-0.7); Eosinophils % (A) 1 %; HCT 39.2 % (39.0-53.0); HGB 12.5 gm/dL (13.0-17.5); Lymphocytes # (A) 0.5 k/uL (1.0-4.8); Lymphocytes % (A) 8 %; MCH 29.8 pg (25.0-35.0); MCHC 31.8 g/dL (31.0-37.0); MCV 93.9 fL (80.0-100.0); Mean Platelet Volume 9.1; Monocytes # (A) 0.5 k/uL (0-1.0); Monocytes % (A) 8 %; Neutrophils # (A) 5.5 k/uL (1.3-7.7); Neutrophils % (A) 82 %; Platelet Count 115 k/uL (150-450); RBC 4.18 m/uL (4.30-5.90); RDW 14.6 % (11.5-15.5); WBC 6.7 k/uL (3.8-10.6)
[2022-08-28 15:29] LABS: INR 1.7 (<1.2); Partial Thromboplastin Time 50.2 sec (22.0-30.0); Prothrombin Time 16.9 sec (9.0-12.0)
[2022-08-28 15:33] LABS: ALT 23 U/L (4-49); AST 30 U/L (17-59); African American GFR (CKD) >90 (>60 ml/min/1.73 sqM); Albumin 3.6 g/dL (3.5-5.0); Alkaline Phosphatase 192 U/L (38-126); Anion Gap 7 mmol/L; Blood Urea Nitrogen 14 mg/dL (9-20); Carbon Dioxide 32 mmol/L (22-30); Chloride 99 mmol/L (98-107); Glucose 120 mg/dL (74-99); Magnesium 2.3 mg/dL (1.6-2.3); Non-African American GFR(CKD) 79 (>60 ml/min/1.73 sqM); Potassium 4.2 mmol/L (3.5-5.1); Sodium 138 mmol/L (137-145); Total Bilirubin 0.8 mg/dL (0.2-1.3); Total Protein 6.3 g/dL (6.3-8.2)
--- NOTE | 2022-08-28 15:44 | XR ---
EXAMINATION TYPE: XR chest 1V portable DATE OF EXAM: 08/28/2022 Comparison: None Clinical History: 82-year-old male weakness Findings: Moderate enlargement of the cardiac/pericardiac silhouette. There are small bilateral pleural effusio ns and interstitial density throughout. Median sternotomy wires and post-CABG clips. Impression: Moderate enlargement of the cardiac/pericardiac silhouette. Correlate for pulmonary vascular congesti on along with small effusions.
--- NOTE | 2022-08-28 15:45 | XR ---
EXAMINATION TYPE: XR knee complete RT DATE OF EXAM: 08/28/2022 CLINICAL HISTORY: Right leg weakness TECHNIQUE: Three views of the right knee are obtained. COMPARISON: None. FINDINGS: There is no acute fracture/dislocation evident in right knee. Metallic hardware from total right knee arthroplasty is satisfactory in position. Overlying clothing or blanket material is seen. Advanced posterior arteriovascular calcification is noted. IMPRESSION: As above.
--- NOTE | 2022-08-28 15:46 | XR ---
EXAMINATION TYPE: XR AP view pelvis and 2 views right hip DATE OF EXAM: 08/28/2022 COMPARISON: NONE HISTORY: 82-year-old male right leg weakness and pain FINDINGS: Moderate degenerative change at both hips with axial joint space narrowing and marginal spurring. No acute fracture, subluxation, dislocation seen. IMPRESSION: Moderate bilateral hip OA. No acute osseous abnormality seen.
--- NOTE | 2022-08-28 16:05 | CT ---
EXAMINATION TYPE: CT brain wo con DATE OF EXAM: 08/28/2022 HISTORY: Weakness, RT leg weakness CT DLP: 1196.4 mGycm. Automated Exposure Control for Dose Reduction was Utilized. TECHNIQUE: CT scan of the head is performed without contrast. COMPARISON: CT brain 2019. FINDINGS: There is no acute intracranial hemorrhage or midline shift identified. There is mild-to-m oderate diffuse ventricular and sulcal prominence redemonstrated. Septum pellucidum vergae redemonst rated. There is mild low-attenuation in the periventricular white matter redemonstrated. The globes are intact and the visualized sinuses are clear. IMPRESSION: No acute intracranial hemorrhage or midline shift. There is mild to moderate diffuse ce rebral atrophy and mild chronic small vessel ischemic change redemonstrated. No significant change f rom prior CT.
--- NOTE | 2022-08-28 16:54 | ED ---
General Adult HPI - General Chief complaint: Weakness Stated complaint: Rt leg pain Time Seen by Provider: 08/28/22 14:34 Source: patient, family, RN notes reviewed, old records reviewed Limitations: no limitations - History of Present Illness Initial comments: Patient is an 82-year-old male who is brought in by family members over concern for right leg weakness. He has a history of atrial fibrillation on blood thinners, asthma, hypertension. States he has been compliant with all medications. Denies any recent falls. Does have a history of right knee replacement. Patient has had progressive worsening strength in the right lower extremity which is somewhat chronic, lasting months per family and patient. Today it seemed worse which is why they brought him in for evaluation. He does ambulate at baseline with a cane. The patient does not feel like he needs to be here but is in agreement with evaluation. Does have a history of a CABG. He denies any chest pain, shortness of breath, abdominal pain, nausea, vomiting. Denies any pain in his right leg except sometimes when walking in his right hip as well as his right knee. Patient does have chronic lower extremity edema which is unchanged from baseline. He is compliant with all medications. Denies any shortness of breath, fevers, chills, cough. Denies orthopnea. Denies PND. Has no other acute complaint at this time. Family is concerned for stroke versus possible injury to the patient's right leg. - Related Data Home Medications Medication Instructions Recorded Confirmed Metoprolol Tartrate [Lopressor] 50 mg PO BID 03/22/14 08/20/19 Ramipril 10 mg PO DAILY 03/22/14 08/20/19 Rivaroxaban [Xarelto] 20 mg PO HS 03/22/14 08/20/19 allopurinoL [Zyloprim] 100 mg PO DAILY 03/22/14 08/20/19 amLODIPine [Norvasc] 5 mg PO DAILY 03/22/14 08/20/19 Calcium Carbonate [Calcium] 600 mg PO DAILY 07/15/18 08/20/19 Furosemide [Lasix] 40 mg PO DAILY 07/15/18 08/20/19 L.acidoph,Paracasei, B.lactis 1 cap PO DAILY 07/15/18 08/20/19 [Probiotic] Levothyroxine Sodium [Synthroid] 300 mcg PO DAILY 07/15/18 08/20/19 Multivitamin/Iron/Folic Acid 1 tab PO DAILY 07/15/18 08/20/19 [Centrum Complete Multivit Tab] Potassium Chloride [Klor-Con 20] 20 meq PO DAILY 07/15/18 08/20/19 Simvastatin [Zocor] 40 mg PO DAILY 07/15/18 08/20/19 Vit C/E/Zn/Coppr/Lutein/Zeaxan 1 cap PO BID 07/15/18 08/20/19 [Preservision Areds 2 Softgel] Acetaminophen Tab [Tylenol Tab] 1,000 mg PO ONCE PRN 08/20/19 08/20/19 Previous Rx's Medication Instructions Recorded Ofloxacin 0.3% Otic Soln [Floxin 10 drops RIGHT EAR DAILY #1 bottle 02/18/20 0.3% Otic Soln] Allergies Allergy/AdvReac Type Severity Reaction Status Date / Time No Known Allergies Allergy Verified 08/28/22 14:03 Review of Systems ROS Statement: Those systems with pertinent positive or pertinent negative responses have been documented in the HPI. Review of Systems: CONST: Denies fever EYES: Denies blurry vision ENT: Denies nasal congestion C/V: Denies Chest pain RESP: Denies shortness of breath GI: Denies abdominal pain : Denies dysuria SKIN: Denies rash. MSK: Endorses chronic right hip and right knee pain. NEURO: Denies headache ROS Other: All systems not noted in ROS Statement are negative. Past Medical History Past Medical History: Atrial Fibrillation, Asthma, Cancer, Hypertension, Thyroid Disorder Additional Past Medical History / Comment(s): THYROID CANCER-1981, Nose bleeds History of Any Multi-Drug Resistant Organisms: None Reported Past Surgical History: Cholecystectomy, Coronary Bypass/CABG, Joint Replacement, Orthopedic Surgery Additional Past Surgical History / Comment(s): CABG-2006. THYROIDECTOMY 1981. COLONOSCOPY. REPAIR TORN RETINA-JULY 2013. knee replacemnt Past Anesthesia/Blood Transfusion Reactions: No Reported Reaction Past Psychological History: No Psychological Hx Reported Smoking Status: Never smoker Past Alcohol Use History: Occasional Past Drug Use History: None Reported - Past Family History Mother Family Medical History: Cancer General Exam - General Exam Comments Initial Comments: General: Appears in no acute distress. HEAD: Normal with no signs of head trauma. EYES: PERRLA, EOMI, conjunctiva normal, no discharge. Pupils 2 mm equal bilaterally. ENT: Hearing grossly intact, normal oropharynx. RESPIRATORY: Clear breath sounds bilaterally. No wheezes, rales, or rhonchi. C/V: Regular rate and rhythm. S1 and S2 auscultated, no edema, peripheral pulses 2+ and intact throughout ABD: Abd is soft, nontender, nondistended EXT: Normal range of motion, no obvious deformity. Some mild weakness in the right lower extremity but does have somewhat normal range of motion. States is typical for him. Family does corroborate this. No obvious tenderness to palpation. SKIN: No rashes or lesions observed on exposed skin. NEURO: Alert and oriented x 4. Cranial nerves II-XII intact. No focal sensory or strength deficits. NIH of 0. GCS of 15. Limitations: no limitations Course Vital Signs 08/28/22 08/28/22 08/28/22 13:59 14:22 16:15 Temperature 97.7 F 97.6 F 97.8 F Pulse Rate 73 75 71 Respiratory 18 16 20 Rate Blood Pressure 110/71 117/77 127/84 O2 Sat by Pulse 97 94 L 94 L Oximetry 08/28/22 17:21 Temperature 97.9 F Pulse Rate 77 Respiratory 21 Rate Blood Pressure 127/79 O2 Sat by Pulse 94 L Oximetry Medical Decision Making - Medical Decision Making Was pt. sent in by a medical professional or institution ([facility] [place], SOCIAL SERVICE ASSISTANT, urgent care, hospital, or usp...) When possible be specific @ -No Did you speak to anyone other than the patient for history (EMS, parent, family, police, friend...)? What history was obtained from this source @ -Brought in by patient's daughter and who helps with the history. Did you review nursing and triage notes (agree or disagree)? Why? @ -I reviewed and agree with nursing and triage notes Were old charts reviewed (outside hosp., previous admission, EMS record, old EKG, old radiological studies, urgent care reports/EKG's, usp records)? Report findings @ -No old charts were reviewed Differential Diagnosis (chest pain, altered mental status, abdominal pain women, abdominal pain men, vaginal bleeding, weakness, fever, dyspnea, syncope, headache, dizziness, GI bleed, back pain, seizure, CVA, palpatations, mental health, musculoskeletal)? @ -Differential Weakness: Hypoglycemia, shock, sepsis, hyponatremia, anemia, infection, CA, ETOH, adverse medicine reaction, overdose, stroke, this is not meant to be an all-inclusive list. EKG interpreted by me (3pts min.). @ -As above X-rays interpreted by me (1pt min.). @ -Chest x-ray shows some pulmonary vascular congestion. This CABG present. No other obvious acute process. X-rays of the right knee and hip show no obvious fractures or dislocations. Degenerative changes. Intact hardware in the right knee. CT interpreted by me (1pt min.). @ -CT brain shows no obvious acute intracranial process. U/S interpreted by me (1pt. min.). @ -None done What testing was considered but not performed or refused? (CT, X-rays, U/S, labs)? Why? @ -None What meds were considered but not given or refused? Why? @ -None Did you discuss the management of the patient with other professionals (professionals i.e. , PA, SOCIAL SERVICE ASSISTANT, lab, RT, psych nurse, social media campaign manager, wood floor layer, teacher, correctional probation officer, caser shoe parts)? Give summary @ -No Was smoking cessation discussed for >3mins.? @ -No Was critical care preformed (if so, how long)? @ -No Were there social determinants of health that impacted care today? How? (Homelessness, low income, unemployed, alcoholism, drug addiction, transportation, low edu. Level, literacy, decrease access to med. care, fdc, rehab)? @ -No Was there de-escalation of care discussed even if they declined (Discuss DNR or withdrawal of care, Hospice)? DNR status @ -No What co-morbidities impacted this encounter? (DM, HTN, Smoking, COPD, CAD, Cancer, CVA, ARF, Chemo, Hep., AIDS, mental health diagnosis, sleep apnea, morbid obesity)? @ -None Was patient admitted / discharged? Hospital course, mention meds given and route, prescriptions, significant lab abnormalities, going to OR and other pertinent info. @ -Based on the patient's presentation and physical exam, he presents with progressively worsening weakness with the last few months in his right leg. No acute changes. Family wants him to be evaluated. He has no acute complaints at this time. Denies any respiratory complaints. Has a significant cardiac history. We will obtain screening labs, CT brain, screening EKG and chest x- ray. Patient was in agreement this plan. Exam is relatively unremarkable and he is currently at his baseline. Imitates of the cane at baseline. Vital signs within acceptable limits. Imaging shows no acute findings. No acute fractures. There are degenerative changes the right leg. CT brain unremarkable. Patient's laboratory studies are remarkable for a chronic anemia, elevated coags in the setting of Xeralto use. Remainder the patient's labs are unremarkable. On reevaluation, patient remains asymptomatic. He would like to go home. Family and patient agree that he is at his baseline. Is due for his physical neck week. Urine is still pending but he does not want to wait for this. I do believe it is reasonable. Patient will be discharged home at this time with strict return precautions. he was in agreement this plan. I instructed the patient to follow up with their PCP in the next 1-3 days. I explained that the patient should return to the emergency department if they experience any worsening symptoms. Strict return precautions were discussed with the patient. The patient expressed understanding of these instructions. I answered all questions that the patient had. The patient was discharged home in good condition with their prescriptions and follow up information. Undiagnosed new problem with uncertain prognosis? @ -No Drug Therapy requiring intensive monitoring for toxicity (Heparin, Nitro, Insulin, Cardizem)? @ -No Were any procedures done? @ -No Diagnosis/symptom? @ -Right leg weakness, progressive Acute, or Chronic, or Acute on Chronic? @ -Chronic Uncomplicated (without systemic symptoms) or Complicated (systemic symptoms)? @ -Uncomplicated Side effects of treatment? @ -No Exacerbation, Progression, or Severe Exacerbation? @ -Progression Poses a threat to life or bodily function? How? (Chest pain, USA, CA, pneumonia, PE, COPD, DKA, ARF, appy, cholecystitis, CVA, Diverticulitis, Homicidal, Suicidal, threat to staff... and all critical care pts) @ -No - Lab Data Result diagrams: 08/28/22 15:02 08/28/22 15:02 Lab Results 08/28/22 08/28/22 08/28/22 Range/Units 14:22 15:02 15:02 WBC 6.7 (3.8-10.6) k/uL RBC 4.18 L (4.30-5.90) m/uL Hgb 12.5 L (13.0-17.5) gm/dL Hct 39.2 (39.0-53.0) % MCV 93.9 (80.0-100.0) fL MCH 29.8 (25.0-35.0) pg MCHC 31.8 (31.0-37.0) g/dL RDW 14.6 (11.5-15.5) % Plt Count 115 L (150-450) k/uL MPV 9.1 Neutrophils % 82 % Lymphocytes % 8 % Monocytes % 8 % Eosinophils % 1 % Basophils % 0 % Neutrophils # 5.5 (1.3-7.7) k/uL Lymphocytes # 0.5 L (1.0-4.8) k/uL Monocytes # 0.5 (0-1.0) k/uL Eosinophils # 0.1 (0-0.7) k/uL Basophils # 0.0 (0-0.2) k/uL PT 16.9 H (9.0-12.0) sec INR 1.7 H (<1.2) APTT 50.2 H (22.0-30.0) sec Sodium (137-145) mmol/L Potassium (3.5-5.1) mmol/L Chloride (98-107) mmol/L Carbon Dioxide (22-30) mmol/L Anion Gap mmol/L BUN (9-20) mg/dL Creatinine (0.66-1.25) mg/dL Est GFR (CKD-EPI)AfAm (>60 ml/min/1.73 sqM) Est GFR (CKD-EPI)NonAf (>60 ml/min/1.73 sqM) Glucose (74-99) mg/dL POC Glucose (mg/dL) 146 H (70-110) mg/dL POC Glu Industrial Laborer ID Belval, [place]iah Plasma Lactic Acid Earnest (0.7-2.0) mmol/L Calcium (8.4-10.2) mg/dL Magnesium (1.6-2.3) mg/dL Total Bilirubin (0.2-1.3) mg/dL AST (17-59) U/L ALT (4-49) U/L Alkaline Phosphatase (38-126) U/L Ammonia (<30) umol/L Total Protein (6.3-8.2) g/dL Albumin (3.5-5.0) g/dL 08/28/22 08/28/22 Range/Units 15:02 15:02 WBC (3.8-10.6) k/uL RBC (4.30-5.90) m/uL Hgb (13.0-17.5) gm/dL Hct (39.0-53.0) % MCV (80.0-100.0) fL MCH (25.0-35.0) pg MCHC (31.0-37.0) g/dL RDW (11.5-15.5) % Plt Count (150-450) k/uL MPV Neutrophils % % Lymphocytes % % Monocytes % % Eosinophils % % Basophils % % Neutrophils # (1.3-7.7) k/uL Lymphocytes # (1.0-4.8) k/uL Monocytes # (0-1.0) k/uL Eosinophils # (0-0.7) k/uL Basophils # (0-0.2) k/uL PT (9.0-12.0) sec INR (<1.2) APTT (22.0-30.0) sec Sodium 138 (137-145) mmol/L Potassium 4.2 (3.5-5.1) mmol/L Chloride 99 (98-107) mmol/L Carbon Dioxide 32 H (22-30) mmol/L Anion Gap 7 mmol/L BUN 14 (9-20) mg/dL Creatinine 0.90 (0.66-1.25) mg/dL Est GFR (CKD-EPI)AfAm >90 (>60 ml/min/1.73 sqM) Est GFR (CKD-EPI)NonAf 79 (>60 ml/min/1.73 sqM) Glucose 120 H (74-99) mg/dL POC Glucose (mg/dL) (70-110) mg/dL POC Glu Industrial Laborer ID Plasma Lactic Acid Earnest 2.0 (0.7-2.0) mmol/L Calcium 9.0 (8.4-10.2) mg/dL Magnesium 2.3 (1.6-2.3) mg/dL Total Bilirubin 0.8 (0.2-1.3) mg/dL AST 30 (17-59) U/L ALT 23 (4-49) U/L Alkaline Phosphatase 192 H (38-126) U/L Ammonia 9 (<30) umol/L Total Protein 6.3 (6.3-8.2) g/dL Albumin 3.6 (3.5-5.0) g/dL - EKG Data -: EKG Interpreted by Me EKG Comments: 12-lead Electrocardiogram Interpretation Note EKG was reviewed and interpreted by myself. 12-lead ECG performed at 1427 is interpreted by me as revealing atrial fibrillation with incomplete right bundle branch block at a rate of 81 beats per minute. [place] is normal. VA interval is unobtainable, QRS duration is 117 ms, QTc is 444 milliseconds.. There were no ST or T wave abnormalities to suggest myocardial ischemia or injury. R wave progression across the precordium was satisfactory. By my interpretation this EKG is non-diagnostic for acute ischemia. Disposition Clinical Impression: Weakness of right leg Disposition: HOME SELF-CARE Condition: Good Instructions (If sedation given, give patient instructions): Weakness (ED) Is patient prescribed a controlled substance at d/c from ED?: No Referrals: Bertin Casas MD [Primary Care Provider] - 1-2 days Time of Disposition: 16:40
[2022-08-28 17:23] VITALS: BP 127/79; PULSE 77; RESP 21; TEMP 97.9
== END 2022-08-28 17:23 | disposition home or self-care (01) ==
LOC: EC 13:48
DX: M62.81 Muscle weakness (generalized) (principal); I11.9 Hypertensive heart disease without heart failure; I48.91 Unspecified atrial fibrillation; J45.909 Unspecified asthma, uncomplicated; Z79.01 Long term (current) use of anticoagulants; Z79.890 Hormone replacement therapy; Z79.899 Other long term (current) drug therapy; Z90.49 Acquired absence of other specified parts of digestive tract
CPT/HCPCS: 36415; 70450; 71045; 73502; 80053; 82140; 83605; 83735; 85025; 85610; 85730; 93005; 99285

== ENCOUNTER → 2022-09-27 | Outpatient (CLI) | payer MEDICARE ==
--- NOTE | 2022-09-27 12:36 | MR ---
EXAMINATION TYPE: MR brain wo con DATE OF EXAM: 09/27/2022 COMPARISON: NONE HISTORY: Krzysztof lower extremity weakness TECHNIQUE: Multiplanar, multisequence imaging of the brain and brainstem is performed without IV cont rast. FINDINGS: Diffusion weighted images demonstrate no evidence of a recent infarct or other diffusion abnormality. There is septum pellucidum vergae redemonstrated. Moderate ventricular and sulcal prominence redemons trated. Scattered multifocal and confluent areas of T2 hyperintensity throughout the deep and periven tricular white matter is seen. Midline structures demonstrate normal morphology. The craniocervical junction appears within normal limits. Normal vascular flow voids are present. The visualized sinuses are clear and the globes are i ntact. IMPRESSION: Moderate generalized cerebral atrophy and mild to moderate chronic small vessel ischemic change.
== END | disposition home or self-care (01) ==
LOC: RADMRIMAIN 11:25
PROVIDERS: ATTEND Internal Medicine
DX: I67.82 Cerebral ischemia (principal); G31.9 Degenerative disease of nervous system, unspecified; R29.898 Other symptoms and signs involving the musculoskeletal system
CPT/HCPCS: 70551

== ENCOUNTER 2023-04-15 10:05 | Inpatient (IN) | payer MEDICARE ==
--- NOTE | 2023-04-15 10:43 | ED ---
General Adult HPI - General Chief complaint: Weakness Stated complaint: abd pain,weakness Time Seen by Provider: 04/15/23 10:15 Source: patient, RN notes reviewed, old records reviewed Mode of arrival: ambulatory Limitations: no limitations - History of Present Illness Initial comments: This is an 82-year-old male whose brought him into the emergency department today because he was spitting getting weaker since yesterday. Patient himself has no complete delusions and he is weak. Patient has no focal weakness. Patient denies any chest pain palpitations difficulty breathing shortest breath. There's been no recent fever chills or cough. Patient denies any abdominal pain. Patient denies nausea vomiting diarrhea. states his blood pressure was low at home on the left side so she wanted to the emergency department. - Related Data Home Medications Medication Instructions Recorded Confirmed Metoprolol Tartrate [Lopressor] 50 mg PO BID 03/22/14 04/15/23 Ramipril 10 mg PO HS 03/22/14 04/15/23 Rivaroxaban [Xarelto] 20 mg PO HS 03/22/14 04/15/23 allopurinoL [Zyloprim] 100 mg PO DAILY 03/22/14 04/15/23 amLODIPine [Norvasc] 5 mg PO DAILY 03/22/14 04/15/23 Furosemide [Lasix] 40 mg PO DAILY 07/15/18 04/15/23 Levothyroxine Sodium [Synthroid] 300 mcg PO DAILY 07/15/18 04/15/23 Potassium Chloride [Klor-Con 20] 20 meq PO HS 07/15/18 04/15/23 Simvastatin [Zocor] 40 mg PO HS 07/15/18 04/15/23 Levothyroxine Sodium [Synthroid] 50 mcg PO DAILY 04/15/23 04/15/23 Allergies Allergy/AdvReac Type Severity Reaction Status Date / Time No Known Allergies Allergy Verified 04/15/23 13:12 Review of Systems ROS Statement: Those systems with pertinent positive or pertinent negative responses have been documented in the HPI. ROS Other: All systems not noted in ROS Statement are negative. Past Medical History Past Medical History: Atrial Fibrillation, Asthma, Cancer, Hypertension, Thyroid Disorder Additional Past Medical History / Comment(s): THYROID CANCER-1982, Nose bleeds History of Any Multi-Drug Resistant Organisms: None Reported Past Surgical History: Cholecystectomy, Coronary Bypass/CABG, Joint Replacement, Orthopedic Surgery Additional Past Surgical History / Comment(s): CABG-2006. THYROIDECTOMY 1981. COLONOSCOPY. REPAIR TORN RETINA-JULY 2013. knee replacemnt Past Anesthesia/Blood Transfusion Reactions: No Reported Reaction Past Psychological History: No Psychological Hx Reported Smoking Status: Never smoker Past Alcohol Use History: Occasional Past Drug Use History: None Reported - Past Family History Mother Family Medical History: Cancer General Exam - General Exam Comments Initial Comments: GENERAL: Patient is well-developed and well-nourished. Patient is nontoxic and well- hydrated and is in mild distress. ENT: Neck is soft and supple. No significant lymphadenopathy is noted. Oropharynx is clear. Moist mucous membranes. Neck has full range of motion without eliciting any pain. EYES: The sclera were anicteric and conjunctiva were pink and moist. Extraocular movements were intact and pupils were equal round and reactive to light. Eyelids were unremarkable. PULMONARY: Unlabored respirations. Good breath sounds bilaterally. No audible rales rhonchi or wheezing was noted. CARDIOVASCULAR: Patient was bradycardic at 42 when I walked into the room. ABDOMEN: Soft and nontender with normal bowel sounds. SKIN: Pale NEUROLOGIC: Patient is alert and oriented x3. Cranial nerves II through XII are grossly intact. Motor and sensory are also intact. Normal speech, volume and content. Symmetrical smile. MUSCULOSKELETAL: Normal extremities with adequate strength and full range of motion. No lower extremity swelling or edema. No calf tenderness. LYMPHATICS: No significant lymphadenopathy is noted PSYCHIATRIC: Normal psychiatric evaluation. Limitations: no limitations Course Vital Signs 04/15/23 04/15/23 04/15/23 10:08 10:30 10:55 Temperature 96.9 F L Pulse Rate 55 L Respiratory 22 Rate Blood Pressure 74/47 Blood Pressure 83/50 [Left Arm Sitting] Blood Pressure 146/132 142/128 [Right Arm Sitting] O2 Sat by Pulse 96 Oximetry 04/15/23 04/15/23 04/15/23 11:06 12:13 12:17 Temperature Pulse Rate 54 L 37 L Respiratory 18 18 Rate Blood Pressure 82/53 Blood Pressure 82/34 [Left Arm Sitting] Blood Pressure 83/41 [Right Arm Sitting] O2 Sat by Pulse 92 L 93 L Oximetry 12/19/23 12/19/23 12/19/23 12:25 13:34 13:45 Temperature 97.4 F L 97.4 F L Pulse Rate 42 L 50 L Respiratory 18 18 Rate Blood Pressure 81/25 80/47 Blood Pressure [Left Arm Sitting] Blood Pressure [Right Arm Sitting] O2 Sat by Pulse 98 97 96 Oximetry 04/15/23 04/15/23 04/15/23 14:05 15:53 15:54 Temperature 97.4 F L 97.4 F L 97.4 F L Pulse Rate 49 L 49 L 56 L Respiratory 18 18 18 Rate Blood Pressure 85/45 81/38 90/49 Blood Pressure [Left Arm Sitting] Blood Pressure [Right Arm Sitting] O2 Sat by Pulse 96 96 Oximetry Medical Decision Making - Medical Decision Making EKG is interpreted by myself. EKG shows atrial fibrillation at 59 bpm QRS is 122 QT interval is 454 QTC is 453 per patient's EKG shows no ST segment elevation or depression. Was pt. sent in by a medical professional or institution (, PA, SNOW REMOVING SUPERVISOR, urgent care, hospital, or correction...) When possible be specific @ -No Did you speak to anyone other than the patient for history (EMS, parent, family, police, friend...)? What history was obtained from this source @ -I spoke to the about his past medical history Did you review nursing and triage notes (agree or disagree)? Why? @ -I reviewed and agree with nursing and triage notes Were old charts reviewed (outside hosp., previous admission, EMS record, old EKG, old radiological studies, urgent care reports/EKG's, correction records)? Report findings @ -I reviewed prior charts and prior lab work on this patient Differential Diagnosis (chest pain, altered mental status, abdominal pain women, abdominal pain men, vaginal bleeding, weakness, fever, dyspnea, syncope, headache, dizziness, GI bleed, back pain, seizure, CVA, palpatations, mental health, musculoskeletal)? @ -Differential Weakness: Hypoglycemia, shock, sepsis, hyponatremia, anemia, infection, PR, ETOH, adverse medicine reaction, overdose, stroke, this is not meant to be an all-inclusive list. EKG interpreted by me (3pts min.). @ -As above X-rays interpreted by me (1pt min.). @ -Chest x-ray shows bilateral pleural effusions CT interpreted by me (1pt min.). @ -CT of the aorta shows no dissection. No evidence of pulmonary embolism. Patient does have bilateral pleural effusions. U/S interpreted by me (1pt. min.). @ -None done What testing was considered but not performed or refused? (CT, X-rays, U/S, labs)? Why? @ -None What meds were considered but not given or refused? Why? @ -None Did you discuss the management of the patient with other professionals (professionals i.e. DrEkta, PA, SNOW REMOVING SUPERVISOR, lab, RT, psych nurse, social work case manager, short order cook, teacher, tactical deception plans officer, medical case worker)? Give summary @ -Dr. Casas he agreed to admit the patient. I spoke with Dr. Reynoso and he will be on consult in the ICU for the patient Was smoking cessation discussed for >3mins.? @ -No Was critical care preformed (if so, how long)? @ -35 minutes Were there social determinants of health that impacted care today? How? (Homelessness, low income, unemployed, alcoholism, drug addiction, transportation, low edu. Level, literacy, decrease access to med. care, longterm, rehab)? @ -No Was there de-escalation of care discussed even if they declined (Discuss DNR or withdrawal of care, Hospice)? DNR status @ -No What co-morbidities impacted this encounter? (DM, HTN, Smoking, COPD, CAD, Cancer, CVA, ARF, Chemo, Hep., AIDS, mental health diagnosis, sleep apnea, morbid obesity)? @ -None Was patient admitted / discharged? Hospital course, mention meds given and route, prescriptions, significant lab abnormalities, going to OR and other pertinent info. @ -Patient came in the hospital with unequal blood pressures and CT was done to rule out dissection was negative. Patient's hemoglobin was 5.8 and gave the patient 2 units of packed red blood cells. Patient had a lactic acid of 5.5 and troponin of 0.479 and INR 3.1. Patient's creatinine was also within 0.74. Patient will have a consult for Dr. Bender doctor tomorrow for GI doctor Dr. Reynoso and cardiology. Patient will be admitted to the ICU Undiagnosed new problem with uncertain prognosis? @ -No Drug Therapy requiring intensive monitoring for toxicity (Heparin, Nitro, Insulin, Cardizem)? @ -No Were any procedures done? @ -No Diagnosis/symptom? @ -Anemia Acute, or Chronic, or Acute on Chronic? @ -Acute Uncomplicated (without systemic symptoms) or Complicated (systemic symptoms)? @ -Complicated Side effects of treatment? @ -No Exacerbation, Progression, or Severe Exacerbation? @ -No Poses a threat to life or bodily function? How? (Chest pain, [place], PR, pneumonia, PE, COPD, DKA, ARF, appy, cholecystitis, CVA, Diverticulitis, Homicidal, Suicidal, threat to staff... and all critical care pts) @ -Yes this can lead to hypoxia and end organ dysfunction Diagnosis/symptom? @ -Elevated troponin Acute, or Chronic, or Acute on Chronic? @ -Acute Uncomplicated (without systemic symptoms) or Complicated (systemic symptoms)? @ -Complicated Side effects of treatment? @ -none Exacerbation, Progression, or Severe Exacerbation] @ -no Poses a threat to life or bodily function? @ -no Diagnosis/symptom? @ -Bradycardia Acute, or Chronic, or Acute on Chronic? @ -Acute Uncomplicated (without systemic symptoms) or Complicated (systemic symptoms)? @ -Complicated Side effects of treatment? @ -none Exacerbation, Progression, or Severe Exacerbation] @ -no Poses a threat to life or bodily function? @ -Yes this could lead to hypoperfusion and end organ dysfunction Diagnosis/symptom? @ -Coagulopathy Acute, or Chronic, or Acute on Chronic? @ -Acute Uncomplicated (without systemic symptoms) or Complicated (systemic symptoms)? @ -Complicated Side effects of treatment? @ -none Exacerbation, Progression, or Severe Exacerbation] @ -no Poses a threat to life or bodily function? @ -Yes is completed further bleeding and anemia and hypoxia Diagnosis/symptom? @ -Renal insufficiency Acute, or Chronic, or Acute on Chronic? @ -Acute Uncomplicated (without systemic symptoms) or Complicated (systemic symptoms)? @ -Complicated Side effects of treatment? @ -none Exacerbation, Progression, or Severe Exacerbation] @ -no Poses a threat to life or bodily function? @ -no Diagnosis/symptom? @ -GI bleed Acute, or Chronic, or Acute on Chronic? @ -Acute Uncomplicated (without systemic symptoms) or Complicated (systemic symptoms)? @ -Complicated Side effects of treatment? @ -none Exacerbation, Progression, or Severe Exacerbation] @ -No Poses a threat to life or bodily function? @ -Yes is completed more anemia and more hypoxia and then end organ dysfunction - Lab Data Result diagrams: 04/15/23 10:41 04/15/23 10:41 Lab Results 04/15/23 04/15/23 04/15/23 Range/Units 10:37 10:41 10:41 WBC 13.6 H (3.8-10.6) k/uL RBC 1.94 L (4.30-5.90) m/uL Hgb 5.8 L* (13.0-17.5) gm/dL Hct 18.5 L* (39.0-53.0) % MCV 95.4 (80.0-100.0) fL MCH 29.9 (25.0-35.0) pg MCHC 31.3 (31.0-37.0) g/dL RDW 19.3 H (11.5-15.5) % Plt Count 191 (150-450) k/uL MPV 10.3 Neutrophils % (Manual) 80 % Lymphocytes % (Manual) 9 % Monocytes % (Manual) 10 % Metamyelocytes % 1 % Myelocytes % 1 % Neutrophils # (Manual) 10.88 H (1.3-7.7) k/uL Lymphocytes # (Manual) 1.22 (1.0-4.8) k/uL Monocytes # (Manual) 1.36 H (0-1.0) k/uL Metamyelocytes # (Man) 0.14 H (0) k/uL Myelocytes # (Manual) 0.14 H (0) k/uL Nucleated RBCs 0 (0-0) /100 WBC Manual Slide Review Performed Polychromasia Present Hypochromasia Moderate Poikilocytosis (manual Present Anisocytosis Slight Macrocytosis Slight PT 30.8 H (10.0-12.5) sec INR 3.1 H (<1.2) APTT 45.6 H (22.0-30.0) sec Sodium (137-145) mmol/L Potassium (3.5-5.1) mmol/L Chloride (98-107) mmol/L Carbon Dioxide (22-30) mmol/L Anion Gap mmol/L BUN (9-20) mg/dL Creatinine (0.66-1.25) mg/dL Est GFR (CKD-EPI)AfAm (>60 ml/min/1.73 sqM) Est GFR (CKD-EPI)NonAf (>60 ml/min/1.73 sqM) Glucose (74-99) mg/dL Lactic Ac Sepsis Rflx Plasma Lactic Acid Earnest (0.7-2.0) mmol/L Calcium (8.4-10.2) mg/dL Magnesium (1.6-2.3) mg/dL Total Bilirubin (0.2-1.3) mg/dL AST (17-59) U/L ALT (4-49) U/L Alkaline Phosphatase (38-126) U/L Troponin I (0.000-0.034) ng/mL Total Protein (6.3-8.2) g/dL Albumin (3.5-5.0) g/dL TSH (0.465-4.680) mIU/L Blood Type Blood Type Confirm A Positive Blood Type Recheck Bld Type Recheck Status Antibody Screen Crossmatch Spec Expiration Date 04/15/23 04/15/23 04/15/23 Range/Units 10:41 10:41 10:41 WBC (3.8-10.6) k/uL RBC (4.30-5.90) m/uL Hgb (13.0-17.5) gm/dL Hct (39.0-53.0) % MCV (80.0-100.0) fL MCH (25.0-35.0) pg MCHC (31.0-37.0) g/dL RDW (11.5-15.5) % Plt Count (150-450) k/uL MPV Neutrophils % (Manual) % Lymphocytes % (Manual) % Monocytes % (Manual) % Metamyelocytes % % Myelocytes % % Neutrophils # (Manual) (1.3-7.7) k/uL Lymphocytes # (Manual) (1.0-4.8) k/uL Monocytes # (Manual) (0-1.0) k/uL Metamyelocytes # (Man) (0) k/uL Myelocytes # (Manual) (0) k/uL Nucleated RBCs (0-0) /100 WBC Manual Slide Review Polychromasia Hypochromasia Poikilocytosis (manual Anisocytosis Macrocytosis PT (10.0-12.5) sec INR (<1.2) APTT (22.0-30.0) sec Sodium 136 L (137-145) mmol/L Potassium 5.4 H (3.5-5.1) mmol/L Chloride 103 (98-107) mmol/L Carbon Dioxide 20 L (22-30) mmol/L Anion Gap 13 mmol/L BUN 78 H (9-20) mg/dL Creatinine 1.74 H (0.66-1.25) mg/dL Est GFR (CKD-EPI)AfAm 41 (>60 ml/min/1.73 sqM) Est GFR (CKD-EPI)NonAf 36 (>60 ml/min/1.73 sqM) Glucose 96 (74-99) mg/dL Lactic Ac Sepsis Rflx Plasma Lactic Acid Earnest 5.5 H* (0.7-2.0) mmol/L Calcium 8.8 (8.4-10.2) mg/dL Magnesium 2.5 H (1.6-2.3) mg/dL Total Bilirubin 0.7 (0.2-1.3) mg/dL AST 228 H (17-59) U/L ALT 130 H (4-49) U/L Alkaline Phosphatase 92 (38-126) U/L Troponin I 0.479 H* (0.000-0.034) ng/mL Total Protein 5.4 L (6.3-8.2) g/dL Albumin 3.0 L (3.5-5.0) g/dL TSH 0.799 (0.465-4.680) mIU/L Blood Type Blood Type Confirm Blood Type Recheck Bld Type Recheck Status Antibody Screen Crossmatch Spec Expiration Date 04/15/23 04/15/23 Range/Units 10:42 11:50 WBC (3.8-10.6) k/uL RBC (4.30-5.90) m/uL Hgb (13.0-17.5) gm/dL Hct (39.0-53.0) % MCV (80.0-100.0) fL MCH (25.0-35.0) pg MCHC (31.0-37.0) g/dL RDW (11.5-15.5) % Plt Count (150-450) k/uL MPV Neutrophils % (Manual) % Lymphocytes % (Manual) % Monocytes % (Manual) % Metamyelocytes % % Myelocytes % % Neutrophils # (Manual) (1.3-7.7) k/uL Lymphocytes # (Manual) (1.0-4.8) k/uL Monocytes # (Manual) (0-1.0) k/uL Metamyelocytes # (Man) (0) k/uL Myelocytes # (Manual) (0) k/uL Nucleated RBCs (0-0) /100 WBC Manual Slide Review Polychromasia Hypochromasia Poikilocytosis (manual Anisocytosis Macrocytosis PT (10.0-12.5) sec INR (<1.2) APTT (22.0-30.0) sec Sodium (137-145) mmol/L Potassium (3.5-5.1) mmol/L Chloride (98-107) mmol/L Carbon Dioxide (22-30) mmol/L Anion Gap mmol/L BUN (9-20) mg/dL Creatinine (0.66-1.25) mg/dL Est GFR (CKD-EPI)AfAm (>60 ml/min/1.73 sqM) Est GFR (CKD-EPI)NonAf (>60 ml/min/1.73 sqM) Glucose (74-99) mg/dL Lactic Ac Sepsis Rflx Y Plasma Lactic Acid Earnest (0.7-2.0) mmol/L Calcium (8.4-10.2) mg/dL Magnesium (1.6-2.3) mg/dL Total Bilirubin (0.2-1.3) mg/dL AST (17-59) U/L ALT (4-49) U/L Alkaline Phosphatase (38-126) U/L Troponin I (0.000-0.034) ng/mL Total Protein (6.3-8.2) g/dL Albumin (3.5-5.0) g/dL TSH (0.465-4.680) mIU/L Blood Type A Positive Blood Type Confirm Blood Type Recheck No Previous Record Bld Type Recheck Status CABO Indicated Antibody Screen NEGATIVE Crossmatch See Detail Spec Expiration Date 04/18/2023 - 2341 Critical Care Time Critical Care Time: Yes Total Critical Care Time: 35 Disposition Clinical Impression: Bradycardia, Anemia, Coagulopathy, Renal insufficiency, Elevated troponin, GI bleed Disposition: ADMITTED IP TO THIS [facility] Referrals: Bertin Casas MD [Primary Care Provider] - 1-2 days Time of Disposition: 15:55
[2023-04-15 11:03] LABS: Anisocytosis Slight; Hypochromasia Moderate; MCH 29.9 pg (25.0-35.0); MCHC 31.3 g/dL (31.0-37.0); MCV 95.4 fL (80.0-100.0); Macrocytosis Slight; Mean Platelet Volume 10.3; Platelet Count 191 k/uL (150-450); RBC 1.94 m/uL (4.30-5.90); RDW 19.3 % (11.5-15.5); WBC 13.6 k/uL (3.8-10.6)
[2023-04-15 11:23] LABS: HCT 18.5 % (39.0-53.0); HGB 5.8 gm/dL (13.0-17.5)
[2023-04-15 11:26] LABS: INR 3.1 (<1.2); Partial Thromboplastin Time 45.6 sec (22.0-30.0); Prothrombin Time 30.8 sec (10.0-12.5)
[2023-04-15 11:34] LABS: ALT 130 U/L (4-49); AST 228 U/L (17-59); African American GFR (CKD) 41 (>60 ml/min/1.73 sqM); Alkaline Phosphatase 92 U/L (38-126); Anion Gap 13 mmol/L; Blood Urea Nitrogen 78 mg/dL (9-20); Calcium 8.8 mg/dL (8.4-10.2); Carbon Dioxide 20 mmol/L (22-30); Chloride 103 mmol/L (98-107); Glucose 96 mg/dL (74-99); Magnesium 2.5 mg/dL (1.6-2.3); Non-African American GFR(CKD) 36 (>60 ml/min/1.73 sqM); Potassium 5.4 mmol/L (3.5-5.1); Sodium 136 mmol/L (137-145); Total Bilirubin 0.7 mg/dL (0.2-1.3); Total Protein 5.4 g/dL (6.3-8.2)
[2023-04-15 11:49] LABS: Lymphocytes # (M) 1.22 k/uL (1.0-4.8); Metamyelocytes # (M) 0.14 k/uL (0); Metamyelocytes % 1 %; Monocytes # (M) 1.36 k/uL (0-1.0); Myelocytes # (M) 0.14 k/uL (0); Myelocytes % 1 %; Neutrophils # (M) 10.88 k/uL (1.3-7.7); Neutrophils % (M) 80 %; Nucleated Red Blood Cells 0 /100 WBC (0-0); Total Cells Counted 200
[2023-04-15 11:50] LABS: Poikilocytosis (M) Present; Polychromasia Present
--- NOTE | 2023-04-15 12:38 | XR ---
EXAMINATION TYPE: XR chest 2V DATE OF EXAM: 04/15/2023 COMPARISON: 08/28/2022 HISTORY: Weakness FINDINGS: There are bilateral pleural effusions with cardiomegaly and bibasilar infiltrate. There is a diffuse interstitial pattern. Bilateral shoulder arthropathy. Changes of spine. Atherosclerotic change aorta . Post median sternotomy changes. IMPRESSION: 1. Cardiomegaly and bilateral consolidation pleural effusion correlate for mild CHF otherwise conside r pneumonia.
--- NOTE | 2023-04-15 14:43 | CT ---
EXAMINATION TYPE: CT angio thor/abd CT DLP: 2160.8 mGycm, Automated exposure control for dose reduction was used. DATE OF EXAM: 04/15/2023 12:16 PM COMPARISON: . CLINICAL INDICATION:Male, 82 years old with history of Weakness; PHH, weakness TECHNIQUE: Dissection protocol: Multiple axial CT images of the chest, abdomen, and pelvis were obtai hafsa prior and to the administration of IV contrast. 3-D reformats and maximum intensity projection fo rmat were performed on a separate workstation. Contrast used:100 mL of Isovue 370 without and with IV Contrast, Oral contrast used: None FINDINGS: ARTERIAL VASCULATURE: No evidence of intramural hematoma. There is moderate atherosclerotic calcifica tion throughout the thoracic aorta without evidence of aneurysm or dissection. Three-vessel branch pa ttern from the arch with mild narrowing of the branch vessels. Imaged carotid arteries in the neck ap pear patent. There is predominantly calcified plaque seen at the carotid bifurcations with mild/moder ate stenosis suggested bilaterally, however not well assessed by this study. Moderate to heavy calcif ications noted throughout the lumbee coronary arteries. Heart is moderately to severely enlarged, the right cardiac chambers are somewhat larger than the left, but there seems to be four-chamber enlarge ment. Partially calcified aortic valve. Small mitral valve calcifications. Moderate to heavy calcification of the abdominal aorta and major branches including the iliac arterie s. Mild/moderate stenoses at the origins of the celiac and superior mesenteric arteries. Mild stenosi s of the proximal renal arteries. Dense calcification of the infrarenal aorta without evidence of AAA . Bifurcation is patent. Diffuse mostly calcified disease throughout the iliac arterial trees without high-grade stenosis or dissection seen. No aneurysm. PULMONARY ARTERIAL VASCULATURE: Pulmonary trunk is not enlarged at 2.6 cm. However the right main pul monary artery is prominent measuring 3.3 cm, and the left main pulmonary artery is prominent measurin g 3.2 cm.. Grossly preserved enhancement of the pulmonary arteries in the limits of the exam, no pulm onary embolus is detected. VENOUS SYSTEM: Reflux of contrast into the hepatic level IVC and hepatic veins which appear engorged, highly suggestive of cardiac insufficiency. Lungs/pleura: Moderate left and moderate to large right pleural effusion Compressive atelectasis rel ated to the effusions. No definite lung consolidation, sizable nodule, or mass. No pneumothorax. Heart: Please see above. Mediastinum: No gross evidence of adenopathy. No pericardial effusion. Lower Neck: No other significant findings.. Musculoskeletal: Diffuse degenerative changes throughout the spine with S-shaped thoracolumbar curvat ure. Exaggerated thoracic kyphosis and kyphotic appearance of the imaged cervical spine. No gross rudy dence of an acute bony abnormality. Multiple sternotomy wires are present. Mild/moderate degenerative changes of the hips and SI joints. Abdomen pelvis: Liver: Possible early cirrhotic morphology, otherwise unremarkable.. Gallbladder and Bile ducts: Status post cholecystectomy with mild associated prominence of the biliar y tree.. Pancreas: Unremarkable. Spleen: Unremarkable. Adrenal glands: Somewhat thickened without evidence of mass.. Kidneys and Ureters: No visible calculi or hydronephrosis. Low-density exophytic 2.9 cm nodule from t he posterior lateral right kidney, suggestive of a cyst. Mild bilateral perinephric stranding.. Bladder: Incompletely distended, not well assessed. Reproductive: Prostate appears enlarged measuring 5.8 cm transverse. A few parenchymal calcifications .. Stomach and Bowel: Stomach and small bowel are nondistended, no gross evidence of obstruction. Append ix is not seen with certainty, but there is no inflammatory process localized to the right lower quad rant or pericecal region. Mild/moderate stool throughout the colon with multiple diverticula seen how ever without convincing evidence of diverticulitis. Peritoneum: No evidence of pneumoperitoneum or significant ascites. There is diffuse stranding throu ghout the mesentery suggestive of edema versus inflammatory changes. No focal fluid collection is see n. Musculoskeletal: Diffuse degenerative changes throughout the spine with S-shaped thoracolumbar scolio sis. Exaggerated thoracic kyphosis and kyphotic appearance of the imaged cervical spine. No gross rudy dence of an acute bony abnormality. Multiple sternotomy wires are present. Mild/moderate degenerative changes of the hips and SI joints. Lymph nodes: There are scattered shotty lymph nodes throughout the exam, likely reactive, with no bul ky adenopathy demonstrated. Abdominal wall/soft tissues: Laxity of the abdominal wall musculature, most pronounced close to midli ne between the abdominal rectus muscles where there is broad-based protrusion containing fat and port ions of bowel without evidence of obstruction. Additional smaller superimposed fat-containing hernia extends anterior from this. Moderate sized fat-containing bilateral inguinal hernias. Partially seen scrotal wall edema and large bilateral hydroceles. There is mild/moderate diffuse body wall edema. IMPRESSION: 1. Diffuse atherosclerotic disease involving the aorta and branches, as detailed above. No evidence of aortic dissection or aneurysm. 2. Pulmonary arteries show no evidence of embolus. 3. Prominent right and left main pulmonary arteries, can be seen with pulmonary hypertension. 4. Massive cardiomegaly with moderate to severe calcification of the lumbee coronary arteries and po st-CABG changes. 5. Evidence of congestive heart failure, including bilateral pleural effusions, reflux of contrast t o the liver, diffuse body wall edema, and diffuse mesenteric edema/fat stranding. Differential would include peritonitis. 6. Prostatomegaly. Large bilateral hydroceles. 7. No evidence of bowel obstruction or free air. No abscess. 8. Numerous other chronic and incidental findings, as detailed above.
[2023-04-15] MEDS ORDERED: NALOXONE 0.4 MG/ML 1 ML VIAL IV PRN (15:55)
[2023-04-15] MEDS ORDERED: PHYTONADIONE 10 MG in SODIUM CHLORIDE 0.9% 50 ML IVPB STA (16:05)
[2023-04-15] MEDS ORDERED: Kcentra PER PHARMACY 1 EACH MISC MISCELLANE PRN (16:13)
[2023-04-15] MEDS ORDERED: EMPTY BAG 1 BAG with HUMAN PROTHROMBIN COMPLX 2,196 UNIT IV STA (16:26)
[2023-04-15] MEDS ORDERED: HUMAN PROTHROMBIN COMPLX 500 UNIT/16 ML VIAL IV ONE (16:26)
[2023-04-15 18:47] LABS: Glucose,Whole Blood 100 mg/dL (70-110)
[2023-04-15] MEDS: SODIUM CHLORIDE 0.9% 1,000 ML IV SCH (19:30)
[2023-04-15 20:05] LABS: African American GFR (CKD) 39 (>60 ml/min/1.73 sqM); Anion Gap 13 mmol/L; Blood Urea Nitrogen 82 mg/dL (9-20); Calcium 8.7 mg/dL (8.4-10.2); Carbon Dioxide 24 mmol/L (22-30); Chloride 101 mmol/L (98-107); Glucose 88 mg/dL (74-99); Magnesium 2.5 mg/dL (1.6-2.3); Non-African American GFR(CKD) 34 (>60 ml/min/1.73 sqM); Potassium 4.9 mmol/L (3.5-5.1); Sodium 138 mmol/L (137-145)
[2023-04-15 20:16] LABS: Anisocytosis Slight; Basophils # (A) 0.1 k/uL (0-0.2); Basophils % (A) 0 %; Eosinophils # (A) 0.1 k/uL (0-0.7); Eosinophils % (A) 0 %; HCT 24.3 % (39.0-53.0); Hypochromasia Moderate; Lymphocytes # (A) 1.2 k/uL (1.0-4.8); Lymphocytes % (A) 9 %; MCH 29.2 pg (25.0-35.0); MCHC 31.3 g/dL (31.0-37.0); MCV 93.2 fL (80.0-100.0); Macrocytosis Slight; Mean Platelet Volume 10.3; Monocytes # (A) 1.1 k/uL (0-1.0); Monocytes % (A) 9 %; Neutrophils # (A) 10.3 k/uL (1.3-7.7); Neutrophils % (A) 79 %; Platelet Count 168 k/uL (150-450); RBC 2.61 m/uL (4.30-5.90); RDW 18.9 % (11.5-15.5); WBC 13.1 k/uL (3.8-10.6)
[2023-04-15 20:17] LABS: HGB 7.6 gm/dL (13.0-17.5)
[2023-04-15] MEDS: ATORVASTATIN 20 MG TAB PO SCH (20:24)
--- NOTE | 2023-04-16 02:46 | P.CNPUL ---
History of Present Illness Consult date: 04/16/23 Requesting physician: Dani Carney Reason for consult: other (Symptomatic anemia and low blood pressures) Chief complaint: Weakness History of present illness: I am seeing this patient in consultation today 04/16/2023 after the patient presented yesterday morning with a chief complaint of generalized weakness and fatigue. He is found to be severely anemic and hypotensive, and was admitted to the intensive care unit. Patient is an 82-year-old white male with past medical history significant for atrial fibrillation anticoagulated on Xarelto, asthma, hypothyroidism post thyroidectomy, hypertension, coronary artery disease with previous CABG, among other things. As stated above, the patient presented yesterday morning with ongoing progressively worsening generalized weakness. Patient's blood pressures were low at home. He also admits is an confusion and hallucinations, but is alert and oriented at present. Largely denies any infectious symptoms. On arrival to the emergency room, he is found to be anemic with a hemoglobin of 5.8 g/dL. He was hypotensive as well, and is receiving his third unit of PRBCs. Patient was admitted to the intensive care unit for possible vasopressor support in the meantime. Patient denies any bloody bowel movements, melena, hematemesis. Denies any abdominal pain. Denies any trauma. He does take Xarelto for his history of atrial fibrillation. Heart rhythm is currently atrial fibrillation with slow ventricular response. His metoprolol and Xarelto are on hold. He was given doses of prothrombin complex and vitamin K in the emergency room. Nurses have not noticed any acute blood loss. Chest CTA done on arrival did not show any evidence of aortic dissection or aneurysm. There is diffuse atherosclerotic disease. No evidence of pulmonary embolus. There were prominent right and left main pulmonary arteries, seen with pulmonary retention. Massive cardiomegaly, moderate to large bilateral pleural effusions, reflex contrast to the, liver seen with congestive heart failure. No evidence of obstruction or free air. There was prostatemegaly with large bilateral hydroceles. Patient is currently sitting up in bed, on 3 L/m nasal cannula, in no acute distress. Most recent CBC shows a WBC count of 13.1, hemoglobin 7.6, hematocrit 24.3, platelets 168. INR was 3.1. APTT 1-1/2 times upper limit. CMP on arrival showed a sodium 138, potassium 4.9, chloride 101, serum bicarb 24, BUN 82, creatinine 1.81, glucose 88. LFTs mildly elevated. Troponins also elevated, likely related to anemia and demand/supply. Stool occult was p ositive. Normal saline is infusing at 75 ML's per hour. Blood pressure is normalized. ECG shows atrial fibrillation with SVR and RBBB, No obvious acute ischemic changes. afebrile. He will be monitored in the intensive care unit. Review of Systems REVIEW OF SYSTEMS: CONSTITUTIONAL: Denies any recent significant weight loss or weight gain. Admits generalized nonfocal weakness EYES: Denies change in vision. EARS, NOSE, MOUTH, THROAT: Denies headaches, denies sore throat. CARDIOVASCULAR: Denies chest pain, palpitations or syncopal episodes. RESPIRATORY: Denies shortness of breath, cough, congestion or hemoptysis. GASTROINTESTINAL: Denies change in appetite, abdominal pain, nausea and vomiting, or diarrhea GENITOURINARY: Denies hematuria, denies infections. MUSKULOSKELETAL: Denies pain, denies swelling. INTEGUMENTARY: Denies rash, denies eczema. NEUROLOGICAL: Denies recent memory loss, no recent seizure activity. PSYCHIATRIC: Denies anxiety, denies depression. HEMATOLOGIC/LYMPHATIC: Denies anemia, denies enlarged lymph node Past Medical History Past Medical History: Atrial Fibrillation, Asthma, Cancer, Hypertension, Thyroid Disorder Additional Past Medical History / Comment(s): THYROID CANCER-1981, Nose bleeds History of Any Multi-Drug Resistant Organisms: None Reported Past Surgical History: Cholecystectomy, Coronary Bypass/CABG, Joint Replacement, Orthopedic Surgery Additional Past Surgical History / Comment(s): CABG-2006. THYROIDECTOMY 1981. COLONOSCOPY. REPAIR TORN RETINA-JULY 2013. knee replacemnt Past Anesthesia/Blood Transfusion Reactions: No Reported Reaction Past Psychological History: No Psychological Hx Reported Smoking Status: Never smoker Past Alcohol Use History: Occasional Past Drug Use History: None Reported - Past Family History Mother Family Medical History: Cancer Medications and Allergies Home Medications Medication Instructions Recorded Confirmed Type Metoprolol Tartrate [Lopressor] 50 mg PO BID 03/22/14 04/15/23 History Ramipril 10 mg PO HS 03/22/14 04/15/23 History Rivaroxaban [Xarelto] 20 mg PO HS 03/22/14 04/15/23 History allopurinoL [Zyloprim] 100 mg PO DAILY 03/22/14 04/15/23 History amLODIPine [Norvasc] 5 mg PO DAILY 03/22/14 04/15/23 History Furosemide [Lasix] 40 mg PO DAILY 07/15/18 04/15/23 History Levothyroxine Sodium [Synthroid] 300 mcg PO DAILY 07/15/18 04/15/23 History Potassium Chloride [Klor-Con 20] 20 meq PO HS 07/15/18 04/15/23 History Simvastatin [Zocor] 40 mg PO HS 07/15/18 04/15/23 History Levothyroxine Sodium [Synthroid] 50 mcg PO DAILY 04/15/23 04/15/23 History Allergies Allergy/AdvReac Type Severity Reaction Status Date / Time No Known Allergies Allergy Verified 04/15/23 13:12 Physical Exam Vitals: Vital Signs Temp Pulse Pulse Resp BP BP BP 04/16/23 00:15 63 24 112/64 04/16/23 00:13 97.8 F 65 18 113/66 04/16/23 00:00 62 60 24 114/58 04/15/23 23:53 97.7 F 58 L 17 114/58 04/15/23 23:45 64 21 106/57 04/15/23 23:30 55 L 19 77/45 04/15/23 23:15 57 L 18 92/51 04/15/23 23:00 54 L 17 103/51 04/15/23 22:45 66 18 100/61 04/15/23 22:30 59 L 18 76/42 04/15/23 22:15 53 L 17 92/50 04/15/23 22:00 61 19 113/62 04/15/23 21:45 60 18 102/60 04/15/23 21:30 61 16 91/64 04/15/23 21:15 56 L 20 72/42 04/15/23 21:00 52 L 21 82/48 04/15/23 20:45 56 L 15 91/52 04/15/23 20:40 97.8 F 60 18 99/64 04/15/23 20:30 63 17 82/63 04/15/23 20:15 70 20 86/53 04/15/23 20:00 98.7 F 57 L 19 99/64 04/15/23 19:45 60 16 99/64 04/15/23 19:30 56 L 20 111/80 04/15/23 19:15 62 16 04/15/23 19:14 97.6 F 71 18 106/66 04/15/23 19:02 65 18 111/80 04/15/23 18:45 71 12 106/66 04/15/23 17:45 97.7 F 55 L 20 102/60 04/15/23 16:29 97.4 F L 62 18 96/53 04/15/23 16:18 97.4 F L 50 L 18 94/48 04/15/23 16:09 97.4 F L 58 L 18 92/44 04/15/23 15:54 97.4 F L 56 L 18 90/49 04/15/23 15:53 97.4 F L 49 L 18 81/38 04/15/23 14:05 97.4 F L 49 L 18 85/45 04/15/23 13:45 97.4 F L 50 L 18 80/47 04/15/23 13:34 97.4 F L 42 L 18 81/25 04/15/23 12:25 04/15/23 12:17 37 L 18 82/53 04/15/23 12:13 82/34 83/41 04/15/23 11:06 54 L 18 04/15/23 10:55 142/128 04/15/23 10:30 83/50 146/132 04/15/23 10:08 96.9 F L 55 L 22 74/47 Pulse Ox 04/16/23 00:15 98 04/16/23 00:13 98 04/16/23 00:00 96 04/15/23 23:53 97 04/15/23 23:45 98 04/15/23 23:30 91 L 04/15/23 23:15 91 L 04/15/23 23:00 91 L 04/15/23 22:45 91 L 04/15/23 22:30 92 L 04/15/23 22:15 95 04/15/23 22:00 96 04/15/23 21:45 97 04/15/23 21:30 94 L 04/15/23 21:15 92 L 04/15/23 21:00 97 04/15/23 20:45 96 04/15/23 20:40 97 04/15/23 20:30 95 04/15/23 20:15 98 04/15/23 20:00 91 L 04/15/23 19:45 96 04/15/23 19:30 95 04/15/23 19:15 94 L 04/15/23 19:14 95 04/15/23 19:02 98 04/15/23 18:45 95 04/15/23 17:45 100 04/15/23 16:29 100 04/15/23 16:18 98 04/15/23 16:09 97 04/15/23 15:54 96 04/15/23 15:53 96 04/15/23 14:05 04/15/23 13:45 96 04/15/23 13:34 97 04/15/23 12:25 98 04/15/23 12:17 93 L 04/15/23 12:13 04/15/23 11:06 92 L 04/15/23 10:55 04/15/23 10:30 04/15/23 10:08 96 Intake and Output 04/15/23 04/15/23 04/16/23 14:59 22:59 06:59 Intake Total 0 845 150 Output Total 0 0 Balance 0 845 150 Intake: IV 225 150 Sodium Chloride 0.9% 1, 225 150 000 ml @ 75 mls/hr IV . [id number] [facility] Rx#:[id number] Blood Product 0 620 0 Rc As-1 Unit 310 [id number] Rc As-1 Unit 0 310 [id number] Rc As-1 Unit 0 [id number] Output: Urine 0 0 Other: Voiding Method Urinal Urinal Weight 90.265 kg 90.265 kg GENERAL EXAM: Alert, 82-year-old white male, comfortable in no apparent distress. HEAD: Normocephalic and atraumatic EYES: Normal reaction of pupils, equal size. NOSE: Clear with pink turbinates. THROAT: No erythema or exudates. NECK: No masses, no JVD. CHEST: No chest wall deformity. LUNGS: Equal air entry with diminished bibasilar lung sounds. No wheezes, rhonchi, crackles.. On 3 L/m nasal cannula. No conversational dyspnea or accessory muscle use.. CVS: S1 and S2 normal with grade 2 systolic murmur, irregular rhythm. No other extra heart sounds ABDOMEN: No hepatosplenomegaly, active bowel sounds, no guarding or rigidity. There is small periumbilical hernia Genitourinary: Large scrotal edema/suspected hydrocele, nontender SPINE: No scoliosis or deformity SKIN: No rashes CENTRAL NERVOUS SYSTEM: No focal deficits, tone is normal in all 4 extremities. EXTREMITIES: There is no peripheral edema, clubbing, or cyanosis. Peripheral pulses are intact. Results - Laboratory Findings CBC and BMP: 04/15/23 19:22 04/15/23 19:22 PT/INR, D-dimer PT 30.8 sec (10.0-12.5) H 04/15/23 10:41 INR 3.1 (<1.2) H 04/15/23 10:41 Abnormal lab findings: Abnormal Labs 04/15/23 04/15/23 04/15/23 10:41 10:41 10:41 WBC 13.6 H RBC 1.94 L Hgb 5.8 L* Hct 18.5 L* RDW 19.3 H Neutrophils # Neutrophils # (Manual) 10.88 H Monocytes # Monocytes # (Manual) 1.36 H Metamyelocytes # (Man) 0.14 H Myelocytes # (Manual) 0.14 H PT 30.8 H INR 3.1 H APTT 45.6 H Sodium 136 L Potassium 5.4 H Carbon Dioxide 20 L BUN 78 H Creatinine 1.74 H Plasma Lactic Acid Earnest Magnesium 2.5 H AST 228 H ALT 130 H Troponin I Total Protein 5.4 L Albumin 3.0 L Crossmatch 04/15/23 04/15/23 04/15/23 10:41 10:41 10:42 WBC RBC Hgb Hct RDW Neutrophils # Neutrophils # (Manual) Monocytes # Monocytes # (Manual) Metamyelocytes # (Man) Myelocytes # (Manual) PT INR APTT Sodium Potassium Carbon Dioxide BUN Creatinine Plasma Lactic Acid Earnest 5.5 H* Magnesium AST ALT Troponin I 0.479 H* Total Protein Albumin Crossmatch See Detail 04/15/23 04/15/23 04/15/23 16:21 19:22 19:22 WBC 13.1 H RBC 2.61 L Hgb 7.6 L D Hct 24.3 L RDW 18.9 H Neutrophils # 10.3 H Neutrophils # (Manual) Monocytes # 1.1 H Monocytes # (Manual) Metamyelocytes # (Man) Myelocytes # (Manual) PT INR APTT Sodium Potassium Carbon Dioxide BUN 82 H Creatinine 1.81 H Plasma Lactic Acid Earnest 2.6 H* Magnesium 2.5 H AST ALT Troponin I Total Protein Albumin Crossmatch - Diagnostic Findings Chest x-ray: image reviewed CT scan - chest: image reviewed Assessment and Plan Assessment: Severe symptomatic anemia, status post transfusion 3 units PRBCs, improving Hypotension, related to hypovolemia and above, improving Acute hypoxemic respiratory failure, on 3 L/m nasal cannula, related to suspected CHF exacerbation, unknown type. Chest CTA demonstrates cardiomegaly, moderate to large bilateral pleural effusions, reflex contrast to the liver, seen with congestive heart failure. Generalized weakness, secondary to anemia Paroxysmal atrial fibrillation, currently with slow ventricular response, normally anticoagulated on Xarelto which is on hold Acute kidney injury, prerenal Elevated troponin, likely related to demand ischemia Mildly elevated LFTs History of asthma, stable History of thyroid cancer status post thyroidectomy and hypothyroidism Coronary artery disease, with remote history of CABG Hyperlipidemia Bilateral hydrocele, asymptomatic Obesity with a BMI of 31.2 kg/m Plan: Patient was admitted to the intensive care unit for possible vasopressor support. Blood pressure has normalized after PRBC transfusions. Not requiring vasopressors. No acute blood loss noted. Fecal occult was positive. GI services were consulted. Xarelto currently on hold. Repeat CBC pending for the morning. Patient is currently on 3 L nasal cannula, in no acute distress. Would consider restarting the patient's Lasix once blood pressure has stabilized. check [id number]. Hold antihypertensive medications. Trend troponins. Cardiology is also consulted. We will continue to follow, and further recommendations are forthcoming . I have personally seen and examined the patient, performed the documentation and the assessment and plan as written. Number of minutes spent on the visit:20
[2023-04-16 03:35] LABS: Anisocytosis Slight; Basophils % (A) 0 %; Eosinophils # (A) 0.1 k/uL (0-0.7); Eosinophils % (A) 1 %; HCT 24.5 % (39.0-53.0); HGB 8.1 gm/dL (13.0-17.5); Hypochromasia Slight; Lymphocytes # (A) 1.1 k/uL (1.0-4.8); Lymphocytes % (A) 9 %; MCH 29.7 pg (25.0-35.0); MCHC 32.9 g/dL (31.0-37.0); MCV 90.3 fL (80.0-100.0); Mean Platelet Volume 9.4; Monocytes % (A) 9 %; Neutrophils # (A) 8.9 k/uL (1.3-7.7); Neutrophils % (A) 79 %; Platelet Count 171 k/uL (150-450); Poikilocytosis Slight; RBC 2.71 m/uL (4.30-5.90); RDW 18.2 % (11.5-15.5); WBC 11.3 k/uL (3.8-10.6)
[2023-04-16 03:45] LABS: African American GFR (CKD) 40 (>60 ml/min/1.73 sqM); Anion Gap 9 mmol/L; Blood Urea Nitrogen 81 mg/dL (9-20); Calcium 8.2 mg/dL (8.4-10.2); Carbon Dioxide 24 mmol/L (22-30); Chloride 103 mmol/L (98-107); Glucose 77 mg/dL (74-99); Non-African American GFR(CKD) 35 (>60 ml/min/1.73 sqM); Potassium 4.5 mmol/L (3.5-5.1); Sodium 136 mmol/L (137-145)
[2023-04-16 03:53] LABS: NT-Pro-B-Type Natriuretic Pept 4450 pg/mL
[2023-04-16] MEDS: LEVOTHYROXINE 50 MCG TAB PO SCH (06:51)
[2023-04-16] MEDS: LEVOTHYROXINE 100 MCG TAB PO SCH (06:51)
[2023-04-16 07:15] LABS: Appearance,Urine Clear (Clear); Bilirubin,Urine Negative (Negative); Blood,Urine Negative (Negative); Color,Urine Yellow; Glucose,Urine (UA) Negative (Negative); Ketones,Urine Negative (Negative); Leukocyte Esterase,Urine Negative (Negative); Nitrite,Urine Negative (Negative); Protein,Urine Trace (Negative); Specific Gravity,Urine 1.031 (1.001-1.035); Urobilinogen,Urine <2.0 mg/dL (<2.0)
[2023-04-16] MEDS: METOPROLOL TARTRATE 12.5 MG TAB PO SCH ×2 (08:54→21:26)
[2023-04-16] MEDS: NITROGLYCERIN OINT 1 INCH/GM PACKET TOPICAL SCH ×2 (09:05→16:47)
[2023-04-16] MEDS: PANTOPRAZOLE 40 MG/10 ML VIAL IV SCH (09:08)
[2023-04-16] MEDS: allopurinoL 100 MG TAB PO SCH (09:11)
--- NOTE | 2023-04-16 09:31 | P.CONS ---
History of Present Illness - Reason for Consult Consult date: 04/16/23 Anemia Requesting physician: Dani Carney - Chief Complaint weakness - History of Present Illness This is an 82-year-old male with multiple comorbidities who presented to the emergency department for generalized weakness, fatigue and low blood pressure at home. He was found to be severely anemic in the emergency department, hypotensive and bradycardic, with acute kidney injury. His past medical history includes atrial fibrillation on Xarelto reported last taken on 04/14/2023, coronary artery disease with previous CABG, asthma, hypothyroidism, post thyroidectomy, and hypertension. Patient is seen and examined in the ICU. He appears weak and lethargic. Somewhat of a poor historian at this time. He denies any black stool, bright red blood per rectum, no abdominal pain, nausea or vomiting. Denies any previous history of peptic ulcer disease or GI bleed. He is unsure if he takes any NSAIDs. Admitting hemoglobin was 5.8 and INR 3.1, he was given 3 units of blood with a repeat hemoglobin today 8.4. So been given vitamin K 10 mg IVPB as well as Kcentra. he is currently denying any abdominal pain, shortness of breath, chest pain, nausea or vomiting. Nursing reports no bleeding and no bowel movement since he's been in the ICU. States that he may have had a possible dark stool in the emergency department. Reviewing his records appears that he had a colonoscopy in [address] Borges for screening colonoscopy which found multiple colon polyps and rectal polyp. Review of Systems REVIEW OF SYSTEMS: CARDIOPULMONARY: No chest pain or shortness of breath. Gastrointestinal: No abdominal pain. No nausea or vomiting. No hematemesis, coffee-ground emesis. No rectal bleeding, or melena. GENITOURINARY: No dysuria or hematuria. MUSCULOSKELETAL: Reports normal range of motion. SKIN: No rashes. No jaundice. ENDOCRINE: No chills, fevers. No excessive weight gain or loss. No polydipsia or polyuria. PSYCHIATRIC: Unremarkable. NEUROLOGY: No change in mental status. Denies dizziness, headache. ENT: Vision unremarkable. CONSTITUTIONAL: Increased weakness and fatigue. Past Medical History Past Medical History: Atrial Fibrillation, Asthma, Cancer, Hypertension, Thyroid Disorder Additional Past Medical History / Comment(s): THYROID CANCER-1982, Nose bleeds History of Any Multi-Drug Resistant Organisms: None Reported Past Surgical History: Cholecystectomy, Coronary Bypass/CABG, Joint Replacement, Orthopedic Surgery Additional Past Surgical History / Comment(s): CABG-2006. THYROIDECTOMY 1981. COLONOSCOPY. REPAIR TORN RETINA-JULY 2013. knee replacemnt Past Anesthesia/Blood Transfusion Reactions: No Reported Reaction Past Psychological History: No Psychological Hx Reported Smoking Status: Never smoker Past Alcohol Use History: Occasional Past Drug Use History: None Reported - Past Family History Mother Family Medical History: Cancer Medications and Allergies Home Medications Medication Instructions Recorded Confirmed Type Metoprolol Tartrate [Lopressor] 50 mg PO BID 03/22/14 04/15/23 History Ramipril 10 mg PO HS 03/22/14 04/15/23 History Rivaroxaban [Xarelto] 20 mg PO HS 03/22/14 04/15/23 History allopurinoL [Zyloprim] 100 mg PO DAILY 03/22/14 04/15/23 History amLODIPine [Norvasc] 5 mg PO DAILY 03/22/14 04/15/23 History Furosemide [Lasix] 40 mg PO DAILY 07/15/18 04/15/23 History Levothyroxine Sodium [Synthroid] 300 mcg PO DAILY 07/15/18 04/15/23 History Potassium Chloride [Klor-Con 20] 20 meq PO HS 07/15/18 04/15/23 History Simvastatin [Zocor] 40 mg PO HS 07/15/18 04/15/23 History Levothyroxine Sodium [Synthroid] 50 mcg PO DAILY 04/15/23 04/15/23 History Allergies Allergy/AdvReac Type Severity Reaction Status Date / Time No Known Allergies Allergy Verified 04/15/23 13:12 Physical Exam Vitals: Vital Signs Temp Pulse Pulse Resp BP BP BP 04/16/23 07:00 87 23 108/60 04/16/23 06:30 80 20 109/66 04/16/23 06:00 75 20 101/56 04/16/23 05:45 74 16 101/56 04/16/23 05:30 66 21 93/54 04/16/23 05:15 70 20 93/54 04/16/23 05:00 70 18 107/57 04/16/23 04:45 66 17 107/57 04/16/23 04:30 68 16 95/56 04/16/23 04:15 68 17 95/56 04/16/23 04:00 97.8 F 60 17 113/58 04/16/23 03:45 67 17 113/58 04/16/23 03:30 60 30 H 92/55 04/16/23 03:15 65 22 92/55 04/16/23 03:00 56 L 18 90/51 04/16/23 02:45 57 L 15 90/51 04/16/23 02:34 98.2 F 55 L 17 90/51 04/16/23 02:30 60 16 86/54 04/16/23 02:15 57 L 18 86/54 04/16/23 02:00 59 L 19 95/59 04/16/23 01:45 55 L 19 77/49 04/16/23 01:30 58 L 18 76/40 04/16/23 01:15 56 L 17 76/40 04/16/23 01:00 61 18 83/44 04/16/23 00:45 63 16 110/57 04/16/23 00:30 63 17 113/66 04/16/23 00:17 63 15 113/66 04/16/23 00:15 63 24 112/64 04/16/23 00:13 97.8 F 65 18 113/66 04/16/23 00:00 62 60 24 114/58 04/15/23 23:53 97.7 F 58 L 17 114/58 04/15/23 23:45 64 21 106/57 04/15/23 23:30 55 L 19 77/45 04/15/23 23:15 57 L 18 92/51 04/15/23 23:00 54 L 17 103/51 04/15/23 22:45 66 18 100/61 04/15/23 22:30 59 L 18 76/42 04/15/23 22:15 53 L 17 92/50 04/15/23 22:00 61 19 113/62 04/15/23 21:45 60 18 102/60 04/15/23 21:30 61 16 91/64 04/15/23 21:15 56 L 20 72/42 04/15/23 21:00 52 L 21 82/48 04/15/23 20:45 56 L 15 91/52 04/15/23 20:40 97.8 F 60 18 99/64 04/15/23 20:30 63 17 82/63 04/15/23 20:15 70 20 86/53 04/15/23 20:00 98.7 F 57 L 19 99/64 04/15/23 19:45 60 16 99/64 04/15/23 19:30 56 L 20 111/80 04/15/23 19:15 62 16 04/15/23 19:14 97.6 F 71 18 106/66 04/15/23 19:02 65 18 111/80 04/15/23 18:45 71 12 106/66 04/15/23 17:45 97.7 F 55 L 20 102/60 04/15/23 16:29 97.4 F L 62 18 96/53 04/15/23 16:18 97.4 F L 50 L 18 94/48 04/15/23 16:09 97.4 F L 58 L 18 92/44 04/15/23 15:54 97.4 F L 56 L 18 90/49 04/15/23 15:53 97.4 F L 49 L 18 81/38 04/15/23 14:05 97.4 F L 49 L 18 85/45 04/15/23 13:45 97.4 F L 50 L 18 80/47 04/15/23 13:34 97.4 F L 42 L 18 81/25 04/15/23 12:25 04/15/23 12:17 37 L 18 82/53 04/15/23 12:13 82/34 83/41 04/15/23 11:06 54 L 18 04/15/23 10:55 142/128 04/15/23 10:30 83/50 146/132 04/15/23 10:08 96.9 F L 55 L 22 74/47 Pulse Ox 04/16/23 07:00 04/16/23 06:30 94 L 04/16/23 06:00 93 L 04/16/23 05:45 95 04/16/23 05:30 96 04/16/23 05:15 96 04/16/23 05:00 95 04/16/23 04:45 97 04/16/23 04:30 94 L 04/16/23 04:15 97 04/16/23 04:00 96 04/16/23 03:45 93 L 04/16/23 03:30 97 04/16/23 03:15 94 L 04/16/23 03:00 95 04/16/23 02:45 95 04/16/23 02:34 93 L 04/16/23 02:30 94 L 04/16/23 02:15 95 04/16/23 02:00 95 04/16/23 01:45 96 04/16/23 01:30 95 04/16/23 01:15 95 04/16/23 01:00 96 04/16/23 00:45 97 04/16/23 00:30 97 04/16/23 00:17 97 04/16/23 00:15 98 04/16/23 00:13 98 04/16/23 00:00 96 04/15/23 23:53 97 04/15/23 23:45 98 04/15/23 23:30 91 L 04/15/23 23:15 91 L 04/15/23 23:00 91 L 04/15/23 22:45 91 L 04/15/23 22:30 92 L 04/15/23 22:15 95 04/15/23 22:00 96 04/15/23 21:45 97 04/15/23 21:30 94 L 04/15/23 21:15 92 L 04/15/23 21:00 97 04/15/23 20:45 96 04/15/23 20:40 97 04/15/23 20:30 95 04/15/23 20:15 98 04/15/23 20:00 91 L 04/15/23 19:45 96 04/15/23 19:30 95 04/15/23 19:15 94 L 04/15/23 19:14 95 04/15/23 19:02 98 04/15/23 18:45 95 04/15/23 17:45 100 04/15/23 16:29 100 04/15/23 16:18 98 04/15/23 16:09 97 04/15/23 15:54 96 04/15/23 15:53 96 04/15/23 14:05 04/15/23 13:45 96 04/15/23 13:34 97 04/15/23 12:25 98 04/15/23 12:17 93 L 04/15/23 12:13 04/15/23 11:06 92 L 04/15/23 10:55 04/15/23 10:30 04/15/23 10:08 96 Intake and Output 04/15/23 04/16/23 04/16/23 22:59 06:59 14:59 Intake Total 845 635 Output Total 0 500 Balance 845 135 Intake: IV 225 325 Sodium Chloride 0.9% 1, 225 325 000 ml @ 75 mls/hr IV . [id number] [facility] Rx#:[id number] Blood Product 620 310 Rc As-1 Unit 310 [id number] Rc As-1 Unit 310 [id number] Rc As-1 Unit 310 [id number] Output: Urine 0 500 Other: Voiding Method Urinal Urinal # Voids 1 Weight 90.265 kg 99.7 kg General appearance: The patient is lethargic, but arousable, appears in no acute distress. HET: Head is normocephalic and atraumatic. Conjunctiva pink. Sclera anicteric. Neck: Supple without lymphadenopathy. Trachea midline. Heart: Regular. Lungs: Equal expansion, normal respiratory effort. Abdomen: Soft, nontender, nondistended with bowel sounds. No guarding or rigidity. Skin: No rashes. No jaundice. Extremities: Normal skin color and turgor. No pedal edema. Neurological: Patient is alert and oriented, he is lethargic but arousable and answering questions appropriately. Results CBC & Chem 7: 04/16/23 03:15 04/16/23 03:15 Labs: Abnormal Lab Results - Last 24 Hours (Table) 04/15/23 04/15/23 04/15/23 Range/Units 10:41 10:41 10:41 WBC 13.6 H (3.8-10.6) k/uL RBC 1.94 L (4.30-5.90) m/uL Hgb 5.8 L* (13.0-17.5) gm/dL Hct 18.5 L* (39.0-53.0) % RDW 19.3 H (11.5-15.5) % Neutrophils # (1.3-7.7) k/uL Neutrophils # (Manual) 10.88 H (1.3-7.7) k/uL Monocytes # (0-1.0) k/uL Monocytes # (Manual) 1.36 H (0-1.0) k/uL Metamyelocytes # (Man) 0.14 H (0) k/uL Myelocytes # (Manual) 0.14 H (0) k/uL PT 30.8 H (10.0-12.5) sec INR 3.1 H (<1.2) APTT 45.6 H (22.0-30.0) sec Sodium 136 L (137-145) mmol/L Potassium 5.4 H (3.5-5.1) mmol/L Carbon Dioxide 20 L (22-30) mmol/L BUN 78 H (9-20) mg/dL Creatinine 1.74 H (0.66-1.25) mg/dL Plasma Lactic Acid Earnest (0.7-2.0) mmol/L Calcium (8.4-10.2) mg/dL Magnesium 2.5 H (1.6-2.3) mg/dL AST 228 H (17-59) U/L ALT 130 H (4-49) U/L Troponin I (0.000-0.034) ng/mL Total Protein 5.4 L (6.3-8.2) g/dL Albumin 3.0 L (3.5-5.0) g/dL Urine Protein (Negative) Crossmatch 04/15/23 04/15/23 04/15/23 Range/Units 10:41 10:41 10:42 WBC (3.8-10.6) k/uL RBC (4.30-5.90) m/uL Hgb (13.0-17.5) gm/dL Hct (39.0-53.0) % RDW (11.5-15.5) % Neutrophils # (1.3-7.7) k/uL Neutrophils # (Manual) (1.3-7.7) k/uL Monocytes # (0-1.0) k/uL Monocytes # (Manual) (0-1.0) k/uL Metamyelocytes # (Man) (0) k/uL Myelocytes # (Manual) (0) k/uL PT (10.0-12.5) sec INR (<1.2) APTT (22.0-30.0) sec Sodium (137-145) mmol/L Potassium (3.5-5.1) mmol/L Carbon Dioxide (22-30) mmol/L BUN (9-20) mg/dL Creatinine (0.66-1.25) mg/dL Plasma Lactic Acid Earnest 5.5 H* (0.7-2.0) mmol/L Calcium (8.4-10.2) mg/dL Magnesium (1.6-2.3) mg/dL AST (17-59) U/L ALT (4-49) U/L Troponin I 0.479 H* (0.000-0.034) ng/mL Total Protein (6.3-8.2) g/dL Albumin (3.5-5.0) g/dL Urine Protein (Negative) Crossmatch See Detail 04/15/23 04/15/23 04/15/23 Range/Units 16:21 19:22 19:22 WBC 13.1 H (3.8-10.6) k/uL RBC 2.61 L (4.30-5.90) m/uL Hgb 7.6 L D (13.0-17.5) gm/dL Hct 24.3 L (39.0-53.0) % RDW 18.9 H (11.5-15.5) % Neutrophils # 10.3 H (1.3-7.7) k/uL Neutrophils # (Manual) (1.3-7.7) k/uL Monocytes # 1.1 H (0-1.0) k/uL Monocytes # (Manual) (0-1.0) k/uL Metamyelocytes # (Man) (0) k/uL Myelocytes # (Manual) (0) k/uL PT (10.0-12.5) sec INR (<1.2) APTT (22.0-30.0) sec Sodium (137-145) mmol/L Potassium (3.5-5.1) mmol/L Carbon Dioxide (22-30) mmol/L BUN 82 H (9-20) mg/dL Creatinine 1.81 H (0.66-1.25) mg/dL Plasma Lactic Acid Earnest 2.6 H* (0.7-2.0) mmol/L Calcium (8.4-10.2) mg/dL Magnesium 2.5 H (1.6-2.3) mg/dL AST (17-59) U/L ALT (4-49) U/L Troponin I (0.000-0.034) ng/mL Total Protein (6.3-8.2) g/dL Albumin (3.5-5.0) g/dL Urine Protein (Negative) Crossmatch 04/16/23 04/16/23 04/16/23 Range/Units 03:15 03:15 03:15 WBC 11.3 H (3.8-10.6) k/uL RBC 2.71 L (4.30-5.90) m/uL Hgb 8.1 L (13.0-17.5) gm/dL Hct 24.5 L (39.0-53.0) % RDW 18.2 H (11.5-15.5) % Neutrophils # 8.9 H (1.3-7.7) k/uL Neutrophils # (Manual) (1.3-7.7) k/uL Monocytes # (0-1.0) k/uL Monocytes # (Manual) (0-1.0) k/uL Metamyelocytes # (Man) (0) k/uL Myelocytes # (Manual) (0) k/uL PT (10.0-12.5) sec INR (<1.2) APTT (22.0-30.0) sec Sodium 136 L (137-145) mmol/L Potassium (3.5-5.1) mmol/L Carbon Dioxide (22-30) mmol/L BUN 81 H (9-20) mg/dL Creatinine 1.78 H (0.66-1.25) mg/dL Plasma Lactic Acid Earnest (0.7-2.0) mmol/L Calcium 8.2 L (8.4-10.2) mg/dL Magnesium (1.6-2.3) mg/dL AST (17-59) U/L ALT (4-49) U/L Troponin I 0.463 H* (0.000-0.034) ng/mL Total Protein (6.3-8.2) g/dL Albumin (3.5-5.0) g/dL Urine Protein (Negative) Crossmatch 04/16/23 Range/Units 06:38 WBC (3.8-10.6) k/uL RBC (4.30-5.90) m/uL Hgb (13.0-17.5) gm/dL Hct (39.0-53.0) % RDW (11.5-15.5) % Neutrophils # (1.3-7.7) k/uL Neutrophils # (Manual) (1.3-7.7) k/uL Monocytes # (0-1.0) k/uL Monocytes # (Manual) (0-1.0) k/uL Metamyelocytes # (Man) (0) k/uL Myelocytes # (Manual) (0) k/uL PT (10.0-12.5) sec INR (<1.2) APTT (22.0-30.0) sec Sodium (137-145) mmol/L Potassium (3.5-5.1) mmol/L Carbon Dioxide (22-30) mmol/L BUN (9-20) mg/dL Creatinine (0.66-1.25) mg/dL Plasma Lactic Acid Earnest (0.7-2.0) mmol/L Calcium (8.4-10.2) mg/dL Magnesium (1.6-2.3) mg/dL AST (17-59) U/L ALT (4-49) U/L Troponin I (0.000-0.034) ng/mL Total Protein (6.3-8.2) g/dL Albumin (3.5-5.0) g/dL Urine Protein Trace H (Negative) Crossmatch Comments: CT angiogram reports diffuse arthrosclerotic disease involving the aorta and branches as detailed above. No evidence of aortic dissection or aneurysm. Pulmonary artery show no evidence of embolus. Prominent right and left main pulmonary arteries can be seen with pulmonary hypertension. Massive cardiomegaly with moderate to severe calcification of the [place] coronary arteries and post CABG changes. Evidence of congestive heart failure, including bilateral pleural effusions, reflux of contrast to the liver, diffuse body wall edema and diffuse mesenteric edema/fat stranding. Differential would include peritonitis. Prostamegaly. Large bilateral hydroceles. No evidence of bowel obstruction or free air. No abscess. Numerous other chronic and incidental fi ndings as detailed above. X-ray reports cardiomegaly and bilateral consolidation pleural effusion c orrelate for mild CHF otherwise consider pneumonia Assessment and Plan (1) Anemia Narrative/Plan: 82-year-old male presenting for weakness and fatigue found to be hypotensive, bradycardic acute kidney injury and severely anemic. This gentleman who is a history of coronary artery disease status post CABG and atrial fibrillation on Cymbalta. He was found to have a INR of 3.1 on admission and hemoglobin of 5.8. No stephanie bleeding noted. He did have positive heme stool. No previous history of GI bleed or peptic ulcer disease, last colonoscopy 2013 significant for multiple colon polyps and rectal polyp. He is to transfuse 3 units of PRBC with a hemoglobin of 8.1 and has been given vitamin K and Kcentra. Cannot rule out possible upper GI bleed as it was reported he may have had a dark stool in the emergency department also elevated BUN but does have acute kidney injury as well. Vertebral repeat stat INR and and that is normal will proceed today with upper endoscopy. This procedure and plan of care discussed with the patient. Current Visit: Yes Status: Acute Code(s): D64.9 - ANEMIA, UNSPECIFIED SNOMED Code(s): 909419490 (2) Elevated LFTs Narrative/Plan: Elevated LFTs likely secondary to hypoperfusion, the patient also showed evidence on CT angiogram of reflux of contrast to the liver. Current Visit: Yes Status: Acute Code(s): R79.89 - OTHER SPECIFIED ABNORMAL FINDINGS OF BLOOD CHEMISTRY SNOMED Code(s): 422473119 (3) Weakness Current Visit: Yes Status: Acute Code(s): R53.1 - WEAKNESS SNOMED Code(s): 90400080 (4) Hypotension Current Visit: Yes Status: Acute Code(s): I95.9 - HYPOTENSION, UNSPECIFIED SNOMED Code(s): 37086810 (5) CAD (coronary artery disease) Current Visit: Yes Status: Acute Code(s): I25.10 - ATHSCL HEART DISEASE OF [place] CORONARY ARTERY W/O ANG PCTRS SNOMED Code(s): 29471717 (6) Atrial fibrillation Current Visit: Yes Status: Acute Code(s): I48.91 - UNSPECIFIED ATRIAL FIBRIL LATION SNOMED Code(s): 83677586 (7) Bradycardia Current Visit: Yes Status: Acute Code(s): R00.1 - BRADYCARDIA, UNSPECIFIED SNOMED Code(s): 50560701 (8) Coagulopathy Current Visit: Yes Status: Acute Code(s): D68.9 - COAGULATION DEFECT, UNSPECIFIED SNOMED Code(s): 47794979 (9) Elevated troponin Current Visit: Yes Status: Acute Code(s): R79.89 - OTHER SPECIFIED ABNORMAL FINDINGS OF BLOOD CHEMISTRY SNOMED Code(s): 373671814 (10) Renal insufficiency Current Visit: Yes Status: Acute Code(s): N28.9 - DISORDER OF KIDNEY AND URETER, UNSPECIFIED SNOMED Code(s): 311951362 Plan: 1. Continue symptomatic and supportive care 2. Daily CBC, transfuse for hemoglobin less than 7 3. Stat INR 4. Keep nothing by mouth 5. Hold anticoagulation 6. Avoid NSAIDs 7. Patient schedule for possible EGD this afternoon if INR improved 8. Repeat CMP tomorrow
[2023-04-16 10:04] LABS: INR 1.4 (<1.2); Prothrombin Time 14.7 sec (10.0-12.5)
[2023-04-16] MEDS: SODIUM CHLORIDE 0.9% 1,000 ML IV SCH ×2 (11:13→18:00)
--- NOTE | 2023-04-16 12:11 | CONS ---
CONSULTATION HISTORY OF PRESENT ILLNESS: This is an 82-year-old gentleman with a known history of chronic atrial fibrillation, CAD with a prior bypass surgery. He came into the hospital mainly with complaints of having generalized weakness. He was seen in the emergency room yesterday and then a consult was requested because of elevated troponin. His brought him to the ER because he was getting weaker and was found to have a low hemoglobin and received 3 units of packed RBCs. He was on Xarelto and his INR was also up to 3.1. He received a combination of vitamin K as well as Kcentra. There is no active bleeding at this time. He is also going to be seen by Gastroenterology. He has history of CAD, prior bypass surgery performed more than 10 years ago, the details of which are not available. He also has hyperlipidemia and hypothyroidism and chronic atrial fibrillation. At the time of my evaluation, he is somewhat lethargic, does not communicate much. Hemodynamically stable. There was also a question of bradycardia. The patient takes 50 mg of metoprolol tartrate b.i.d. He is currently in atrial fib, rate is controlled in the 70s. PAST MEDICAL HISTORY: 1. Chronic atrial fibrillation, on Xarelto. 2. CAD with prior bypass surgery, details unavailable. 3. History of hypertension. 4. Hyperlipidemia. MEDICATIONS: Medications at home include, 1. Xarelto. 2. Lipitor. 3. Allopurinol. 4. Levothyroxine. 5. Metoprolol tartrate 50 mg b.i.d. 6. Lasix 40 mg daily. 7. Zocor 40 mg daily. 8. Amlodipine 5 mg daily. PHYSICAL EXAMINATION: VITAL SIGNS: Blood pressure is 110/70, pulse rate is about 70-80, irregular. HEENT: Unremarkable. Fundus was not examined by me. NECK: Supple. There is no JVD. I do not hear a carotid bruit. HEART: Reveals S1, S2 with a short systolic murmur at left sternal border and base. Second heart sound is preserved. LUNGS: Reveal bilateral decent air entry. ABDOMEN: Soft. LOWER EXTREMITIES: Reveal diminished pulses, trace edema. CENTRAL NERVOUS SYSTEM: Assessment was not possible. LABORATORY DATA: His troponin is flat. There are 2 values at 0.4 and 0.4. His ProBNP is about 4400. TSH is in the normal range. His creatinine is about 1.8. BUN is elevated. Hemoglobin after 3 units of blood is about 8.1. His initial hemoglobin was 5.8 on arrival and he received 3 units of blood. IMPRESSION: 1. Active gastrointestinal bleeding requiring blood transfusion. 2. Chronic atrial fibrillation, on Xarelto, which has been reversed. 3. Hypertension. 4. Hyperlipidemia. 5. Coronary artery disease with prior bypass surgery, details unavailable. 6. Elevated troponin suggestive of a type 2 myocardial infarction. RECOMMENDATIONS: I am recommending that we will place him on a small dose of beta michelle with parameters. Check echocardiogram, put him on nitroglycerin paste. No heparin and probably no anticoagulation given this serious GI bleed. The patient will be seen by GI as well. Prognosis remains guarded. Thank you very much for the consult. SHANNAN / RAISA: [id number] /
[2023-04-16 12:32] LABS: % Iron Saturation 10.39 (15.00-50.00); Ferritin 71.4 ng/mL (22.0-322.0)
--- NOTE | 2023-04-16 13:16 | P.HPIM ---
History of Present Illness H&P Date: 04/15/23 Chief Complaint: Acute symptomatic anemia/GI bleed/bradycardia HISTORY OF PRESENT ILLNESS: This is an 82-year-old male with a previous medical history significant for coronary artery disease status post coronary artery bypass graft 5 in 2007, chronic atrial fibrillation on anticoagulation, hypertension and hypertensive cardio vascular disease, hyperlipidemia, hypothyroidism, gout, obesity with obstructive sleep apnea, patient presented to the emergency depart ment at [facility] because of weakness and increased shortness breath, patient was found to have a hemoglobin of 5.8, patient did have a type and cross and transfuse 2 units of packed red blood cells, patient was admitted to intensive care unit for possible GI bleed, patient has been on Xarelto for long period of time, patient denies any hematemesis or hematochezia he denies any black tarry stool, patient has been drinking significant amount of alcohol including wine as well as vodka for the last few years, patient has been having hard time quitting the alcohol this point in time, patient will be admitted to the ICU, he would be seen in consultation by the termite control servicer as well as GI history troponin was slightly elevated will be seen by cardiology as well. REVIEW OF SYSTEMS: Constitutional: No documented fever, no chills, no night sweats. No weight change. positive for weakness, fatigue or lethargy. positive for daytime sleepiness. HEENT: No headache. No blurred vision or double vision, no loss of vision. positive for loss of Hearing, no ringing in the ears, no dizziness. No nasal drainage or congestion. No epistaxis. No sore throat. Lungs: No shortness of breath, no cough, no sputum production. No wheezing. Reports dyspnea with activity. Cardiovascular: No chest pain, positive for lower extremity edema. No palpitations. No paroxysmal nocturnal dyspnea. No orthopnea. No lightheadedness or dizziness. No syncopal episodes. Abdominal: Reports abdominal pain. No nausea, vomiting. No diarrhea. No constipation. No bloody or tarry stools reports loss of appetite. Genitourinary: No dysuria, increased frequency, urgency. No urinary retention. Musculoskeletal: No myalgias. positive for muscle weakness, positive for gait dysfunction, no frequent falls. positive for back pain. No neck pain. Integumentary: No wounds, no lesions. No rash or pruritus. No unusual bruising. No change in hair or nails. Neurologic: No aphasia. No facial droop. No change in mentation. No head injury. No headache. No paralysis. No paresthesia. Psychiatric: positive for depression. No anxiety. positive for mood swings. Endocrine: No abnormal blood sugars. No weight change. PAST MEDICAL HISTORY: Coronary artery disease status post CABG 5 in 2007 Hypertension and hypertensive cardio vascular disease. Chronic atrial fibrillation. Hypothyroidism. Obesity with obstructive sleep apnea and obesity hyperventilation syndrome Osteoarthritis. Gout. Chronic alcohol use and dependence. Insomnia. Constipation. PAST SURGICAL HISTORY: Right total knee arthroplasty 2020 CABG 2007 Cyst removed from the chest wall 723. SOCIAL HISTORY: Patient used to smoke about 2 cigar twice every day at the age of 21 and quit in 1981, he drinks alcohol on a regular basis, used to drink wine and drinking vodka on a daily basis, he drinks 1 cup of coffee every day, no cigarette smoking, no drug use or abuse, lives with his , primary caregiver, he has a daughter who lives close by. FAMILY HISTORY: Father at age of 89 from bypass surgery and hypertension mother at age 94 from open heart surgery and she had a breast cancer patient had one-year consistent with hypothyroidism one son is okay one daughter is okay to major medical problems. PHYSICAL EXAMINATION: General: 82-year-old male in down in bed in no distress HEENT: Head is atraumatic, normocephalic, pupils were equal round reactive to light and recommendation, extraocular muscle movement were intact, sclera nonicteric, conjunctivae were pale, mucous membranes of the mouth are somewhat dry. Neck: Supple, no JVP, normal carotid upstroke bilaterally, no lymphadenopathy. Chest: Decreased breath sounds at the bases, few rhonchi, no expiratory wheezes, no chest wall tenderness, no intercostal retractions. Heart: First heart sound is normal, second heart sound is normal there is systolic ejection murmur 2/6 located in the left sternal border, irregularly irregular due to atrial fibrillation. Abdomen: Soft, nontender, nondistended, positive bowel sounds. Extremities: There is +1 edema no calf tenderness DP +2 bilaterally. Neurologic examination: Patient is awake alert and oriented X3, cranial nerves II-12 appear grossly intact, muscle power were4 out of 5 in upper extremities and 2 out of 5 in bilateral lower extremities, deep tendon reflexes normal bilaterally. ASSESSMENT AND PLAN: 1. Acute symptomatic anemia likely related to GI bleed. Rule out esophageal varices, rule out peptic ulcer disease,. Type and cross and transfuse 3 units of packed red blood cells, keep hemoglobin above 8, keep the patient on Protonix 40 mg IV push every 24 hours, GI consultation, intensive care consultation, follow-up with the patient's CBC every 8 hours, transfuse as needed. Nothing by mouth. 2. Acute blood loss anemia status post 3 units of packed consult for dysphagia. Hemoglobin currently stable. 3. Type II with myocardial injury due to symptomatic and severe anemia. Continue to transfuse the patient keep hemoglobin above 8, hold the patient beta michelle for now due to his hypertension as well as bradycardia. 4. Severe sinus bradycardia likely related to beta michelle. Discontinue beta michelle for now monitor the patient heart rate very closely. 5. Chronic atrial fibrillation. Currently in nature fibrillation, discontinue metoprolol due to bradycardia, discontinue Xarelto for now due to GI bleed. 6. Hypertension and hypertensive cardio vascular disease. Hold metoprolol and amlodipine as the blood pressure is normal.. 7. Hyperlipidemia. Continue patient on atorvastatin 40 mg orally once every day. 8. History of gout. Continue allopurinol 100 mg orally once every day. 9. Acute kidney injury due to acute tubular necrosis as well as vasomotor nephropathy due to GI bleed. Continue IV fluid resuscitation the form of normal saline at 75 mL an hour discontinue Lasix, discontinue potassium, discontinue ARB the next 24 hours. 10. Coronary artery disease status post CABG 5 in 2007. Continue patient on atorvastatin 40 mg once every day, discontinue metoprolol and losartan for now. Cardiology consultation. 11. Hypothyroidism. Continue Synthroid 350 g orally once every day artery the patient TSH and free T4. 12. DVT prophylaxis. Bilateral knee-high SHILA hose. 13. GI prophylaxis. Continue patient on Protonix 40 mg IV push every 24 hours. 14. Admitted to inpatient. Estimate a length of stay 2 midnights. 15. Full code. Past Medical History Past Medical History: Atrial Fibrillation, Asthma, Cancer, Hypertension, Thyroid Disorder Additional Past Medical History / Comment(s): THYROID CANCER-1982, Nose bleeds History of Any Multi-Drug Resistant Organisms: None Reported Past Surgical History: Cholecystectomy, Coronary Bypass/CABG, Joint Replacement, Orthopedic Surgery Additional Past Surgical History / Comment(s): CABG-2006. THYROIDECTOMY 1981. COLONOSCOPY. REPAIR TORN RETINA-JULY 2013. knee replacemnt Past Anesthesia/Blood Transfusion Reactions: No Reported Reaction Past Psychological History: No Psychological Hx Reported Smoking Status: Never smoker Past Alcohol Use History: Occasional Past Drug Use History: None Reported - Past Family History Mother Family Medical History: Cancer Medications and Allergies Home Medications Medication Instructions Recorded Confirmed Type Metoprolol Tartrate [Lopressor] 50 mg PO BID 03/22/14 04/15/23 History Ramipril 10 mg PO HS 03/22/14 04/15/23 History Rivaroxaban [Xarelto] 20 mg PO HS 03/22/14 04/15/23 History allopurinoL [Zyloprim] 100 mg PO DAILY 03/22/14 04/15/23 History amLODIPine [Norvasc] 5 mg PO DAILY 03/22/14 04/15/23 History Furosemide [Lasix] 40 mg PO DAILY 07/15/18 04/15/23 History Levothyroxine Sodium [Synthroid] 300 mcg PO DAILY 07/15/18 04/15/23 History Potassium Chloride [Klor-Con 20] 20 meq PO HS 07/15/18 04/15/23 History Simvastatin [Zocor] 40 mg PO HS 07/15/18 04/15/23 History Levothyroxine Sodium [Synthroid] 50 mcg PO DAILY 04/15/23 04/15/23 History Allergies Allergy/AdvReac Type Severity Reaction Status Date / Time No Known Allergies Allergy Verified 04/15/23 13:12 Physical Exam Vitals: Vital Signs Temp Pulse Resp BP BP BP Pulse Ox 04/15/23 19:15 62 16 94 L 04/15/23 19:14 97.6 F 71 18 106/66 95 04/15/23 19:02 65 18 111/80 98 04/15/23 18:45 71 12 106/66 95 04/15/23 17:45 97.7 F 55 L 20 102/60 100 04/15/23 16:29 97.4 F L 62 18 96/53 100 04/15/23 16:18 97.4 F L 50 L 18 94/48 98 04/15/23 16:09 97.4 F L 58 L 18 92/44 97 04/15/23 15:54 97.4 F L 56 L 18 90/49 96 04/15/23 15:53 97.4 F L 49 L 18 81/38 96 04/15/23 14:05 97.4 F L 49 L 18 85/45 04/15/23 13:45 97.4 F L 50 L 18 80/47 96 04/15/23 13:34 97.4 F L 42 L 18 81/25 97 04/15/23 12:25 98 04/15/23 12:17 37 L 18 82/53 93 L 04/15/23 12:13 82/34 83/41 04/15/23 11:06 54 L 18 92 L 04/15/23 10:55 142/128 04/15/23 10:30 83/50 146/132 04/15/23 10:08 96.9 F L 55 L 22 74/47 96 Intake and Output 04/15/23 04/15/23 04/15/23 06:59 14:59 22:59 Intake Total 0 620 Balance 0 620 Intake: Blood Product 0 620 Rc As-1 Unit 310 [id number] Rc As-1 Unit 0 310 [id number] Other: Weight 90.265 kg Results CBC & Chem 7: 04/16/23 03:15 04/16/23 03:15 Labs: Abnormal Lab Results - Last 24 Hours (Table) 04/15/23 04/15/23 04/15/23 Range/Units 10:41 10:41 10:41 WBC 13.6 H (3.8-10.6) k/uL RBC 1.94 L (4.30-5.90) m/uL Hgb 5.8 L* (13.0-17.5) gm/dL Hct 18.5 L* (39.0-53.0) % RDW 19.3 H (11.5-15.5) % Neutrophils # (Manual) 10.88 H (1.3-7.7) k/uL Monocytes # (Manual) 1.36 H (0-1.0) k/uL Metamyelocytes # (Man) 0.14 H (0) k/uL Myelocytes # (Manual) 0.14 H (0) k/uL PT 30.8 H (10.0-12.5) sec INR 3.1 H (<1.2) APTT 45.6 H (22.0-30.0) sec Sodium 136 L (137-145) mmol/L Potassium 5.4 H (3.5-5.1) mmol/L Carbon Dioxide 20 L (22-30) mmol/L BUN 78 H (9-20) mg/dL Creatinine 1.74 H (0.66-1.25) mg/dL Plasma Lactic Acid Earnest (0.7-2.0) mmol/L Magnesium 2.5 H (1.6-2.3) mg/dL AST 228 H (17-59) U/L ALT 130 H (4-49) U/L Troponin I (0.000-0.034) ng/mL Total Protein 5.4 L (6.3-8.2) g/dL Albumin 3.0 L (3.5-5.0) g/dL Crossmatch 04/15/23 04/15/23 04/15/23 Range/Units 10:41 10:41 10:42 WBC (3.8-10.6) k/uL RBC (4.30-5.90) m/uL Hgb (13.0-17.5) gm/dL Hct (39.0-53.0) % RDW (11.5-15.5) % Neutrophils # (Manual) (1.3-7.7) k/uL Monocytes # (Manual) (0-1.0) k/uL Metamyelocytes # (Man) (0) k/uL Myelocytes # (Manual) (0) k/uL PT (10.0-12.5) sec INR (<1.2) APTT (22.0-30.0) sec Sodium (137-145) mmol/L Potassium (3.5-5.1) mmol/L Carbon Dioxide (22-30) mmol/L BUN (9-20) mg/dL Creatinine (0.66-1.25) mg/dL Plasma Lactic Acid Earnest 5.5 H* (0.7-2.0) mmol/L Magnesium (1.6-2.3) mg/dL AST (17-59) U/L ALT (4-49) U/L Troponin I 0.479 H* (0.000-0.034) ng/mL Total Protein (6.3-8.2) g/dL Albumin (3.5-5.0) g/dL Crossmatch See Detail 04/15/23 Range/Units 16:21 WBC (3.8-10.6) k/uL RBC (4.30-5.90) m/uL Hgb (13.0-17.5) gm/dL Hct (39.0-53.0) % RDW (11.5-15.5) % Neutrophils # (Manual) (1.3-7.7) k/uL Monocytes # (Manual) (0-1.0) k/uL Metamyelocytes # (Man) (0) k/uL Myelocytes # (Manual) (0) k/uL PT (10.0-12.5) sec INR (<1.2) APTT (22.0-30.0) sec Sodium (137-145) mmol/L Potassium (3.5-5.1) mmol/L Carbon Dioxide (22-30) mmol/L BUN (9-20) mg/dL Creatinine (0.66-1.25) mg/dL Plasma Lactic Acid Earnest 2.6 H* (0.7-2.0) mmol/L Magnesium (1.6-2.3) mg/dL AST (17-59) U/L ALT (4-49) U/L Troponin I (0.000-0.034) ng/mL Total Protein (6.3-8.2) g/dL Albumin (3.5-5.0) g/dL Crossmatch
--- NOTE | 2023-04-16 13:20 | P.PN ---
Subjective Progress Note Date: 04/16/23 HISTORY OF PRESENT ILLNESS: This is an 82-year-old male with a previous medical history signifi cant for coronary artery disease status post coronary artery bypass graft 5 in 2007, chronic atrial fibrillation on anticoagulation, hypertension and hypertensive cardio vascular disease, hyperlipidemia, hypothyroidism, gout, obesity with obstructive sleep apnea, patient presented to the emergency department at [facility] because of weakness and increased shortness breath, patient was found to have a hemoglobin of 5.8, patient did have a type and cross and transfuse 2 units of packed red blood cells, patient was admitted to intensive care unit for possible GI bleed, patient has been on Xarelto for long period of time, patient denies any hematemesis or hematochezia he denies any black tarry stool, patient has been drinking significant amount of alcohol including wine as well as vodka for the last few years, patient has been having hard time quitting the alcohol this point in time, patient will be admitted to the ICU, he would be seen in consultation by the structural iron worker as well as GI history troponin was slightly elevated will be seen by cardiology as well. 04/16: Patient is laying down in bed in no apparent distress, he is more sleepy today, his getting IV fluid resuscitation, his hemoglobin is up to 8.1, patient is scheduled for an upper endoscopy today continue Protonix 40 mg IV push every 24 hours, GI consultation appreciated as well as intensive care consultation, we will continue to monitor the patient very closely, his laboratory evaluation was reviewed did not show any evidence of any iron deficiency anemia at this point in time, his B12 levels normal folic acid level is normal as well, we'll continue to monitor the patient very closely, in the intensive care unit. REVIEW OF SYSTEMS: Constitutional: No documented fever, no chills, no night sweats. No weight change. positive for weakness, fatigue or lethargy. positive for daytime sleepiness. HEENT: No headache. No blurred vision or double vision, no loss of vision. positive for loss of Hearing, no ringing in the ears, no dizziness. No nasal drainage or congestion. No epistaxis. No sore throat. Lungs: No shortness of breath, no cough, no sputum production. No wheezing. Reports dyspnea with activity. Cardiovascular: No chest pain, positive for lower extremity edema. No palpitations. No paroxysmal nocturnal dyspnea. No orthopnea. No lightheadedness or dizziness. No syncopal episodes. Abdominal: Reports abdominal pain. No nausea, vomiting. No diarrhea. No constipation. No bloody or tarry stools reports loss of appetite. Genitourinary: No dysuria, increased frequency, urgency. No urinary retention, bilateral large hydrocele Musculoskeletal: No myalgias. positive for muscle weakness, positive for gait dysfunction, no frequent falls. positive for back pain. No neck pain. Integumentary: No wounds, no lesions. No rash or pruritus. No unusual bruising. No change in hair or nails. Neurologic: No aphasia. No facial droop. No change in mentation. No head injury. No headache. No paralysis. No paresthesia. Psychiatric: positive for depression. No anxiety. positive for mood swings. Endocrine: No abnormal blood sugars. No weight change. PHYSICAL EXAMINATION: General: 82-year-old male in down in bed in no distress HEENT: Head is atraumatic, normocephalic, pupils were equal round reactive to light and recommendation, extraocular muscle movement were intact, sclera nonicteric, conjunctivae were pale, mucous membranes of the mouth are somewhat dry. Neck: Supple, no JVP, normal carotid upstroke bilaterally, no lymphadenopathy. Chest: Decreased breath sounds at the bases, few rhonchi, no expiratory wheezes, no chest wall tenderness, no intercostal retractions. Heart: First heart sound is normal, second heart sound is normal there is sy stolic ejection murmur 2/6 located in the left sternal border, irregularly irregular due to atrial fibrillation. Abdomen: Soft, nontender, nondistended, positive bowel sounds. Extremities: There is +1 edema no calf tenderness DP +2 bilaterally. Neurologic examination: Patient is awake alert and oriented X3, cranial nerves II-12 appear grossly intact, muscle power were4 out of 5 in upper extremities and 2 out of 5 in bilateral lower extremities, deep tendon reflexes normal bilaterally. ASSESSMENT AND PLAN: 1. Acute symptomatic anemia likely related to GI bleed. Rule out esophageal varices, rule out peptic ulcer disease,. Post 3 units of packed red blood cell transfusion continue Protonix 40 mg IV push every 24 hours, patient scheduled to go for EGD 2. Acute blood loss anemia status post 3 units of packed consult for dysphagia. Hemoglobin currently stable. 3. Type II with myocardial injury due to symptomatic and severe anemia. Continue to transfuse the patient keep hemoglobin above 8, hold the patient beta michelle for now due to his hypertension as well as bradycardia. 4. Severe sinus bradycardia likely related to beta michelle. His heart rate recovered and he was started back on metoprolol 12.5 mg orally twice every day by cardiology 5. Chronic atrial fibrillation. Continue metoprolol 12.5 mg orally twice every day monitor the patient very closely. 6 continue metoprolol. Hypertension and hypertensive cardiovascular disease. continue metoprolol 12.5 mg orally twice every day. 7. Hyperlipidemia. Continue patient on atorvastatin 20 mg orally once every day. 8. History of gout. Continue allopurinol 100 mg orally once every day. 9. Acute kidney injury due to acute tubular necrosis as well as vasomotor nephropathy due to GI bleed. Continue IV fluid resuscitation the form of normal saline at 75 mL an hour discontinue Lasix, discontinue potassium, discontinue ARB the next 24 hours. 10. Coronary artery disease status post CABG 5 in 2007. Continue patient on atorvastatin 20 mg once every day, Cardiology consultation. 11. Hypothyroidism. Continue Synthroid 350 g orally once every day artery the patient TSH and free T4. 12. Bilateral large hydrocele. We will do care of it as an outpatient. 13. DVT prophylaxis. Bilateral knee-high SHILA hose. 14. GI prophylaxis. Continue patient on Protonix 40 mg IV push every 24 hours. Objective - Vital Signs Vital signs: Vital Signs Temp 98.5 F 04/16/23 12:00 Pulse 73 04/16/23 13:00 Resp 48 H 04/16/23 13:00 BP 110/58 04/16/23 13:00 Pulse Ox 91 L 04/16/23 13:00 FiO2 Intake & Output 04/15/23 04/16/23 04/16/23 18:59 06:59 18:59 Intake Total 310 1170 350 Output Total 500 400 Balance 310 670 -50 Weight 90.265 kg 99.7 kg Intake: IV 550 350 Sodium Chloride 0.9% 1, 550 350 000 ml @ 50 mls/hr IV . Q20H [facility] Rx#:[id number] Blood Product 310 620 Rc As-1 Unit 0 310 [id number] Rc As-1 Unit 310 [id number] Rc As-1 Unit 310 [id number] Output: Urine 500 400 Other: Voiding Method Urinal Urinal # Voids 1 1 - Labs CBC & Chem 7: 04/16/23 03:15 04/16/23 03:15 Labs: Abnormal Lab Results - Last 24 Hours (Table) 04/15/23 04/15/23 04/15/23 Range/Units 10:42 16:21 19:22 WBC 13.1 H (3.8-10.6) k/uL RBC 2.61 L (4.30-5.90) m/uL Hgb 7.6 L D (13.0-17.5) gm/dL Hct 24.3 L (39.0-53.0) % RDW 18.9 H (11.5-15.5) % Neutrophils # 10.3 H (1.3-7.7) k/uL Monocytes # 1.1 H (0-1.0) k/uL PT (10.0-12.5) sec INR (<1.2) Sodium (137-145) mmol/L BUN (9-20) mg/dL Creatinine (0.66-1.25) mg/dL Plasma Lactic Acid Earnest 2.6 H* (0.7-2.0) mmol/L Calcium (8.4-10.2) mg/dL Magnesium (1.6-2.3) mg/dL Iron (65-175) UG/DL % Saturation (15.00-50.00) Troponin I (0.000-0.034) ng/mL Vitamin B12 (200.0-944.0) pg/mL Urine Protein (Negative) Crossmatch See Detail 04/15/23 04/16/23 04/16/23 Range/Units 19:22 03:15 03:15 WBC 11.3 H (3.8-10.6) k/uL RBC 2.71 L (4.30-5.90) m/uL Hgb 8.1 L (13.0-17.5) gm/dL Hct 24.5 L (39.0-53.0) % RDW 18.2 H (11.5-15.5) % Neutrophils # 8.9 H (1.3-7.7) k/uL Monocytes # (0-1.0) k/uL PT (10.0-12.5) sec INR (<1.2) Sodium (137-145) mmol/L BUN 82 H (9-20) mg/dL Creatinine 1.81 H (0.66-1.25) mg/dL Plasma Lactic Acid Earnest (0.7-2.0) mmol/L Calcium (8.4-10.2) mg/dL Magnesium 2.5 H (1.6-2.3) mg/dL Iron (65-175) UG/DL % Saturation (15.00-50.00) Troponin I 0.463 H* (0.000-0.034) ng/mL Vitamin B12 (200.0-944.0) pg/mL Urine Protein (Negative) Crossmatch 04/16/23 04/16/23 04/16/23 Range/Units 03:15 03:15 06:38 WBC (3.8-10.6) k/uL RBC (4.30-5.90) m/uL Hgb (13.0-17.5) gm/dL Hct (39.0-53.0) % RDW (11.5-15.5) % Neutrophils # (1.3-7.7) k/uL Monocytes # (0-1.0) k/uL PT (10.0-12.5) sec INR (<1.2) Sodium 136 L (137-145) mmol/L BUN 81 H (9-20) mg/dL Creatinine 1.78 H (0.66-1.25) mg/dL Plasma Lactic Acid Earnest (0.7-2.0) mmol/L Calcium 8.2 L (8.4-10.2) mg/dL Magnesium (1.6-2.3) mg/dL Iron 32 L (65-175) UG/DL % Saturation 10.39 L (15.00-50.00) Troponin I (0.000-0.034) ng/mL Vitamin B12 1140.0 H (200.0-944.0) pg/mL Urine Protein Trace H (Negative) Crossmatch 04/16/23 Range/Units 09:40 WBC (3.8-10.6) k/uL RBC (4.30-5.90) m/uL Hgb (13.0-17.5) gm/dL Hct (39.0-53.0) % RDW (11.5-15.5) % Neutrophils # (1.3-7.7) k/uL Monocytes # (0-1.0) k/uL PT 14.7 H (10.0-12.5) sec INR 1.4 H (<1.2) Sodium (137-145) mmol/L BUN (9-20) mg/dL Creatinine (0.66-1.25) mg/dL Plasma Lactic Acid Earnest (0.7-2.0) mmol/L Calcium (8.4-10.2) mg/dL Magnesium (1.6-2.3) mg/dL Iron (65-175) UG/DL % Saturation (15.00-50.00) Troponin I (0.000-0.034) ng/mL Vitamin B12 (200.0-944.0) pg/mL Urine Protein (Negative) Crossmatch
--- NOTE | 2023-04-16 13:22 | CA ---
Transthoracic Echo Report Name: Jason Waldron Age: 82 Gender: M : 1940 Exam Date: 04/16/2023 10:43 Exam Location: [facility] [facility] Ht (in): 67 Wt (lb): 219 Ordering Physician: Vera Webster MD ([id number]) Attending/Referring Phys: Softball Player Colleen Chavira RDCS Procedure CPT: Indications: chf Cardiac Hx: Technical Quality: Technically difficult study Contrast 1: Definity Total Dose (mL): 2 Contrast 2: Total Dose (mL): MEASUREMENTS (Male / Female) Normal Values 2D ECHO LV Diastolic Diameter PLAX 4.2 cm 4.2 - 5.9 / 3.9 - 5.3 cm LV Systolic Diameter PLAX 2.6 cm IVS Diastolic Thickness 1.4 cm 0.6 - 1.0 / 0.6 - 0.9 cm LVPW Diastolic Thickness 1.2 cm 0.6 - 1.0 / 0.6 - 0.9 cm LV Relative Wall Thickness 0.6 RV Internal Dim ED PLAX 5.9 cm LA Volume 99.7 cm??? 18 - 58 / 22 - 52 cm??? LA Volume Index 45.2 cm???/m??? 16 - 28 cm???/m??? M-MODE Aortic Root Diameter MM 3.9 cm LA Systolic Diameter MM 6.5 cm LA Ao Ratio MM 1.7 AV Cusp Separation MM 1.4 cm DOPPLER AV Peak Velocity 260.6 cm/s AV Peak Gradient 27.2 mmHg AV Mean Velocity 179.9 cm/s AV Mean Gradient 14.3 mmHg AV Velocity Time Integral 55.5 cm LVOT Peak Velocity 54.5 cm/s LVOT Peak Gradient 1.2 mmHg LVOT Velocity Time Integral 12.6 cm MV Area PHT 4.9 cm??? Mitral E Point Velocity 127.4 cm/s Mitral A Point Velocity 38.8 cm/s Mitral E to A Ratio 3.3 MV Deceleration Time 156.4 ms MV E' Velocity 20.6 cm/s Mitral E to MV E' Ratio 6.2 TR Peak Velocity 287.8 cm/s TR Peak Gradient 33.1 mmHg Right Atrial Pressure 15.0 mmHg Pulmonary Artery Systolic Pressu 48.1 mmHg Right Ventricular Systolic Press 48.1 mmHg FINDINGS Left Ventricle Moderately increased septal wall thickness. Left ventricular cavity size normal. Normal left ventricular wall motion. Left ventricular ejection fraction is estimated at 55-60 %. Right Ventricle Severe right ventricular dilatation. Moderate Pulmonary hypertension. Right ventricular systolic pressure estimated at 48 mm hg.reduced right ventricular global systolic function. Right Atrium Severe right atrial dilatation. Left Atrium Severely increased left atrial volume. Mildly increased left atrial area. Mitral Valve Mitral valve thickened. Moderate mitral annular calcification. Moderate mitral regurgitation. Aortic Valve Mild aortic stenosis with a peak gradient of 27 mmHg and a mean gradient of 14 mmHg. mild aortic regurgitation. Tricuspid Valve Severe tricuspid regurgitation.structurally normal tricuspid valve. Pulmonic Valve Structurally normal pulmonic valve. Mild pulmonic regurgitation. Pericardium No pericardial effusion. Pleural effusion. Aorta Normal size aortic root and proximal ascending aorta. CONCLUSIONS 1. Normal left ventricular size and systolic function 2. Severely dilated right ventricle with moderate pulmonary hypertension 3. Moderate mitral with severe tricuspid regurgitation 4. Mild aortic regurgitation and mild aortic stenosis 5. Pleural effusion noted Previewed by: Dr. Reina Velázquez MD (Electronically Signed) Final Date: 16 April 2023 13:22
[2023-04-16] MEDS ORDERED: LIDOCAINE 1% INJ 10MG/ML (20 ML MDV) ONE (14:42)
[2023-04-16] MEDS ORDERED: PROPOFOL 10 MG/ML 20 ML VIAL IV ONE (14:42)
[2023-04-16] MEDS ORDERED: IV FLUID CONTINUATION 1,000 ML IV ONE (14:44)
--- NOTE | 2023-04-16 14:53 | P.PCN ---
Date of Procedure: 04/16/23 Procedure(s) Performed: BRIEF HISTORY: Patient is a 82-year-old, pleasant, white male admitted to the ICU with severe symptomatic anemia and hemoglobin of 5.8 g/dL. Patient was having generalized weakness and fatigue for the last few days. He received 3 units of the obesity transfusion. He has been on Xarelto in the last dose was 2 days ago. In the ICU he was hypertensive and bradycardic and hence he received Kcentra. Last hemoglobin is 8.1 g/dL. He scheduled for an upper endoscopy as a suspicion for upper GI source of bleeding. PROCEDURE PERFORMED: Esophagogastroduodenoscopy. PREOPERATIVE DIAGNOSIS: Severe symptomatic anemia with a hemoglobin of 5.8 g/dL. IV sedation per anesthesia. PROCEDURE: After informed consent was obtained, the patient was brought into the endoscopy unit. IV sedation was administered by Anesthesia under continuous monitoring. Initially the Olympus GIF-140 video endoscope was inserted into the mouth. Esophagus intubated without any difficulty. It was gradually advanced into the stomach and duodenum and carefully examined. No active upper GI bleed seen. The bulb and the second part of the duodenum appeared normal. The scope at this time was withdrawn to the stomach, adequately insufflated with air, and upon careful examination, mucosa of the antrum had mild gastritis. Mucosa of the, body, cardia and the fundus appeared normal. The scope was then withdrawn into the esophagus. The GE junction was located at 39 cm from the incisors. The esophagus appeared normal. There were no erosions or ulcerations seen and the patient tolerated the procedure well. IMPRESSION: 1. No active upper GI bleed 2. Mild gastritis. RECOMMENDATIONS: The findings of this examination were discussed with the patient as well as his family.. He'll be started on clear liquid diet. Monitor CBC daily. Scheduled for colonoscopy tomorrow.
[2023-04-16] MEDS ORDERED: PEG 3350 (236 GM/BTL) + LYTES 4,000 ML BOTTLE PO ONE (14:54)
[2023-04-16] MEDS: ATORVASTATIN 20 MG TAB PO SCH (21:26)
[2023-04-17] MEDS: NITROGLYCERIN OINT 1 INCH/GM PACKET TOPICAL SCH ×4 (00:50→23:13)
[2023-04-17 00:57] LABS: Anisocytosis Slight; HCT 23.9 % (39.0-53.0); HGB 7.9 gm/dL (13.0-17.5); Hypochromasia Slight; MCH 30.1 pg (25.0-35.0); MCHC 33.1 g/dL (31.0-37.0); MCV 90.8 fL (80.0-100.0); Mean Platelet Volume 9.4; Platelet Count 145 k/uL (150-450); Poikilocytosis Slight; RBC 2.63 m/uL (4.30-5.90); RDW 18.2 % (11.5-15.5); WBC 9.5 k/uL (3.8-10.6)
[2023-04-17] MEDS: LEVOTHYROXINE 100 MCG TAB PO SCH ×2 (05:33→10:18)
[2023-04-17] MEDS: LEVOTHYROXINE 50 MCG TAB PO SCH ×2 (05:33→10:19)
[2023-04-17 06:06] LABS: Anisocytosis Slight; Basophils % (A) 0 %; Eosinophils # (A) 0.2 k/uL (0-0.7); Eosinophils % (A) 2 %; HCT 25.5 % (39.0-53.0); HGB 8.5 gm/dL (13.0-17.5); Hypochromasia Slight; Lymphocytes % (A) 12 %; MCH 30.4 pg (25.0-35.0); MCHC 33.3 g/dL (31.0-37.0); MCV 91.1 fL (80.0-100.0); Mean Platelet Volume 9.2; Monocytes # (A) 0.8 k/uL (0-1.0); Monocytes % (A) 10 %; Neutrophils # (A) 6.5 k/uL (1.3-7.7); Neutrophils % (A) 75 %; Platelet Count 152 k/uL (150-450); Poikilocytosis Slight; RDW 17.8 % (11.5-15.5); WBC 8.6 k/uL (3.8-10.6)
[2023-04-17 06:37] LABS: ALT 214 U/L (4-49); African American GFR (CKD) 77 (>60 ml/min/1.73 sqM); Anion Gap 6 mmol/L; Blood Urea Nitrogen 53 mg/dL (9-20); Carbon Dioxide 27 mmol/L (22-30); Chloride 106 mmol/L (98-107); Glucose 104 mg/dL (74-99); Non-African American GFR(CKD) 66 (>60 ml/min/1.73 sqM); Sodium 139 mmol/L (137-145); Total Bilirubin 1.2 mg/dL (0.2-1.3)
[2023-04-17 06:52] LABS: AST 205 U/L (17-59); Alkaline Phosphatase 109 U/L (38-126); Potassium 4.3 mmol/L (3.5-5.1)
--- NOTE | 2023-04-17 09:12 | CDI ---
Documentation Clarification Form Date: 04/17/2023 08:56:22 AM From: Alvina Lucero RN CCDS Phone: [phone] Admit Date: 04/15/2023 03:55:00 PM Patient Name: Jason Waldron Visit Number: [id number] Discharge Date: ATTENTION: The Clinical Documentation Specialists (CDI) and [facility] Coding Staff appreciate your assistance in clarifying documentation. Please respond to the clarification below the line at the bottom and electronically sign. The CDI & [facility] Coding staff will review the response and follow-up if needed. Please note: Queries are made part of the Legal Health Record. If you have any questions, please contact the author of this message via ITS. Dr. Bubba Emmanuel MD Shock is documented [insert date, location]. Additional clarification regarding the type of shock is requested. Patient history/risk factors: 82-year-old male presented to the hospital with weakness and increased shortness breath. Medical History: HTN, CAD and Atrial Fibrillation. 04/15, ED note. Clinical Indicators: 04/15, Hgb 5.8 04/15, VSS: BP 74/47; HR 55; Temp 96.9F Temporal; RR 22; SpO2 96% room air 04/15, VSS: BP 80/47; HR 50 04/15, VSS: BP 72/42; HR 56 Treatment:04/15 3units PRBC; Phytonadione IVPB x 1; 04/15 Prothrombin complex concent IV, 04/15 ICU admission; Holding anticoagulants Please clarify the type of shock, if known: [x ] Hemorrhagic Shock [ ] Hypovolemic Shock [ ] Other, please specify [ ] Unable to determine (Template Last Revised: June 2020) MTDD
[2023-04-17] MEDS: METOPROLOL TARTRATE 12.5 MG TAB PO SCH ×2 (10:19→22:16)
[2023-04-17] MEDS: allopurinoL 100 MG TAB PO SCH (10:19)
[2023-04-17] MEDS: PANTOPRAZOLE 40 MG/10 ML VIAL IV SCH (10:19)
[2023-04-17] MEDS: SODIUM CHLORIDE 0.9% 1,000 ML IV SCH (10:20)
--- NOTE | 2023-04-17 12:10 | P.PN ---
Subjective Progress Note Date: 04/17/23 I am seeing this patient in consultation today 04/16/2023 after the patient presented yesterday morning with a chief complaint of generalized weakness and fatigue. He is found to be severely anemic and hypotensive, and was admitted to the intensive care unit. Patient is an 82-year-old white male with past medical history significant for atrial fibrillation anticoagulated on Xarelto, asthma, hypothyroidism post thyroidectomy, hypertension, coronary artery disease with previous CABG, among other things. As stated above, the patient presented yesterday morning with ongoing progressively worsening generalized weakness. Patient's blood pressures were low at home. He also admits is an confusion and hallucinations, but is alert and oriented at present. Largely denies any infectious symptoms. On arrival to the emergency room, he is found to be anemic with a hemoglobin of 5.8 g/dL. He was hypotensive as well, and is receiving his third unit of PRBCs. Patient was admitted to the intensive care unit for possible vasopressor support in the meantime. Patient denies any bloody bowel movements, melena, hematemesis. Denies any abdominal pain. Denies any trauma. He does take Xarelto for his history of atrial fibrillation. Heart rhythm is currently atrial fibrillation with slow ventricular response. His metoprolol and Xarelto are on hold. He was given doses of prothrombin complex and vitamin K in the emergency room. Nurses have not noticed any acute blood loss. Chest CTA done on arrival did not show any evidence of aortic dissection or aneurysm. There is diffuse atherosclerotic disease. No evidence of pulmonary embolus. There were prominent right and left main pulmonary arteries, seen with pulmonary retention. Massive cardiomegaly, moderate to large bilateral pleural effusions, reflex contrast to the, liver seen with congestive heart failure. No evidence of obstruction or free air. There was prostatemegaly with large bilateral hydroceles. Patient is currently sitting up in bed, on 3 L/m nasal cannula, in no acute distress. Most recent CBC shows a WBC count of 13.1, hemoglobin 7.6, hematocrit 24.3, platelets 168. INR was 3.1. APTT 1-1/2 times upper limit. CMP on arrival showed a sodium 138, potassium 4.9, chloride 101, serum bicarb 24, BUN 82, creatinine 1.81, glucose 88. LFTs mildly elevated. Troponins also elevated, likely related to anemia and demand/supply. Stool occult was positive. Normal saline is infusing at 75 ML's per hour. Blood pressure is normalized. ECG shows atrial fibrillation with SVR and RBBB, No obvious acute ischemic changes. afebrile. He will be monitored in the intensive care unit. The patient is seen today 04/17/2023 in follow-up in the intensive care unit. He is currently sitting up at the bedside. Awake and alert in no acute distress. He is maintaining O2 saturations in the 90s on 2 L/m per nasal cannula. Normal saline at 50 MLS per hour. He remains in atrial fibrillation and controlled ventricular response. He is status post 3 units of packed red blood cells this admission. Current hemoglobin 8.5. He did undergo EGD yesterday that revealed evidence of gastritis but no acute bleeding. The plan is for colonoscopy today. White count 8.6. Sodium 139. Potassium 4.3. Bicarb 27. BUN 53. Creatinine 1.05. AST 205. ALT 214. Alk phos 109. He remains nothing by mouth. Remains on IV Protonix. Cardiogram revealed preserved left ventricular systolic function. There is severely dilated right ventricle with moderate pulmonary hypertension. Objective - Vital Signs Vital signs: Vital Signs Temp 97.6 F 04/17/23 08:00 Pulse 81 04/17/23 11:00 Resp 20 04/17/23 11:00 BP 128/75 04/17/23 11:00 Pulse Ox 95 04/17/23 11:00 FiO2 Intake & Output 04/16/23 04/17/23 04/17/23 18:59 06:59 18:59 Intake Total 1100 1800 2250 Output Total 400 0 500 Balance 700 1800 1750 Weight 101.1 kg Intake: IV 1100 600 250 Sodium Chloride 0.9% 1, 600 600 250 000 ml @ 50 mls/hr IV . Q20H [facility] Rx#:[id number] Oral 1200 2000 Output: Urine 400 0 0 Urine/Stool Mix 500 Other: Voiding Method Urinal Bedside Commode Urinal # Voids 1 1 1 # Bowel Movements 1 1 - Exam GENERAL EXAM: Alert, 82-year-old male, on 2 L/m per nasal cannula, comfortable in no apparent distress. HEAD: Normocephalic and atraumatic EYES: Normal reaction of pupils, equal size. NOSE: Clear with pink turbinates. THROAT: No erythema or exudates. NECK: No masses, no JVD. CHEST: No chest wall deformity. LUNGS: Equal air entry with diminished bibasilar lung sounds. No wheezes, rhonchi, crackles. No conversational dyspnea. CVS: S1 and S2 normal with grade 2 systolic murmur, irregular rhythm. No other extra heart sounds ABDOMEN: No hepatosplenomegaly, active bowel sounds, no guarding or rigidity. There is small periumbilical hernia Genitourinary: Large scrotal edema/suspected hydrocele, nontender SPINE: No scoliosis or deformity SKIN: No rashes CENTRAL NERVOUS SYSTEM: No focal deficits, tone is normal in all 4 extremities. EXTREMITIES: There is no peripheral edema, clubbing, or cyanosis. Peripheral pulses are intact. - Labs CBC & Chem 7: 04/17/23 05:35 04/17/23 05:35 Labs: Abnormal Lab Results - Last 24 Hours (Table) 04/16/23 04/17/23 04/17/23 Range/Units 03:15 00:00 05:35 RBC 2.63 L (4.30-5.90) m/uL Hgb 7.9 L (13.0-17.5) gm/dL Hct 23.9 L (39.0-53.0) % RDW 18.2 H (11.5-15.5) % Plt Count 145 L (150-450) k/uL BUN 53 H (9-20) mg/dL Glucose 104 H (74-99) mg/dL Calcium 8.0 L (8.4-10.2) mg/dL Iron 32 L (65-175) UG/DL % Saturation 10.39 L (15.00-50.00) AST 205 H (17-59) U/L ALT 214 H (4-49) U/L Vitamin B12 1140.0 H (200.0-944.0) pg/mL 04/17/23 Range/Units 05:35 RBC 2.80 L (4.30-5.90) m/uL Hgb 8.5 L (13.0-17.5) gm/dL Hct 25.5 L (39.0-53.0) % RDW 17.8 H (11.5-15.5) % Plt Count (150-450) k/uL BUN (9-20) mg/dL Glucose (74-99) mg/dL Calcium (8.4-10.2) mg/dL Iron (65-175) UG/DL % Saturation (15.00-50.00) AST (17-59) U/L ALT (4-49) U/L Vitamin B12 (200.0-944.0) pg/mL Assessment and Plan Assessment: Severe symptomatic anemia, status post transfusion 3 units PRBCs, improving. Current hemoglobin 8.5. Status post EGD from 04/16/2023 revealed evidence of gastritis but no active bleeding. Plan is for colonoscopy today. Hypotension, related to hypovolemia and above, improving Acute hypoxemic respiratory failure, on 3 L/m nasal cannula, related to diastolic CHF exacerbation. Chest CTA demonstrates cardiomegaly, moderate to large bilateral pleural effusions, reflex contrast to the liver, seen with congestive heart failure. Generalized weakness, secondary to anemia Paroxysmal atrial fibrillation, currently with slow ventricular response, normally anticoagulated on Xarelto which is on hold Acute kidney injury, prerenal Elevated troponin, likely related to demand ischemia Mildly elevated LFTs History of asthma, stable History of thyroid cancer status post thyroidectomy and hypothyroidism Coronary artery disease, with remote history of CABG Hyperlipidemia Bilateral hydrocele, asymptomatic Obesity with a BMI of 31.2 kg/m Plan: The patient was seen and evaluated Echocardiogram, labs and medications reviewed EGD results reviewed Plan is for colonoscopy today Current hemoglobin stable at 8.5 We will continue to monitor closely here in the intensive care unit I have personally seen and examined the patient, performed the documentation and the assessment and plan as written. Number of minutes spent on the visit: 10.
--- NOTE | 2023-04-17 13:21 | P.PN ---
Subjective Progress Note Date: 04/17/23 HISTORY OF PRESENT ILLNESS: This is an 82-year-old male with a previous medical history signifi cant for coronary artery disease status post coronary artery bypass graft 5 in 2007, chronic atrial fibrillation on anticoagulation, hypertension and hypertensive cardio vascular disease, hyperlipidemia, hypothyroidism, gout, obesity with obstructive sleep apnea, patient presented to the emergency department at [facility] because of weakness and increased shortness breath, patient was found to have a hemoglobin of 5.8, patient did have a type and cross and transfuse 2 units of packed red blood cells, patient was admitted to intensive care unit for possible GI bleed, patient has been on Xarelto for long period of time, patient denies any hematemesis or hematochezia he denies any black tarry stool, patient has been drinking significant amount of alcohol including wine as well as vodka for the last few years, patient has been having hard time quitting the alcohol this point in time, patient will be admitted to the ICU, he would be seen in consultation by the supervisor furnace process as well as GI history troponin was slightly elevated will be seen by cardiology as well. 04/16: Patient is laying down in bed in no apparent distress, he is more sleepy today, his getting IV fluid resuscitation, his hemoglobin is up to 8.1, patient is scheduled for an upper endoscopy today continue Protonix 40 mg IV push every 24 hours, GI consultation appreciated as well as intensive care consultation, we will continue to monitor the patient very closely, his laboratory evaluation was reviewed did not show any evidence of any iron deficiency anemia at this point in time, his B12 levels normal folic acid level is normal as well, we'll continue to monitor the patient very closely, in the intensive care unit. 04/17: Patient remains in intensive care unit, he did receive 1 unit of packed red blood cells yesterday, his hemoglobin is up to 8.5, and scheduled for colonoscopy tomorrow morning, he did have an EGD did not show any evidence of acute of normalities except for mild gastritis, continue PPI for now, monitor the patient very closely. Family was in the setting of his daughter and his wif e was updated about his current condition REVIEW OF SYSTEMS: Constitutional: No documented fever, no chills, no night sweats. No weight change. positive for weakness, fatigue or lethargy. positive for daytime sleepiness. HEENT: No headache. No blurred vision or double vision, no loss of vision. positive for loss of Hearing, no ringing in the ears, no dizziness. No nasal drainage or congestion. No epistaxis. No sore throat. Lungs: No shortness of breath, no cough, no sputum production. No wheezing. Reports dyspnea with activity. Cardiovascular: No chest pain, positive for lower extremity edema. No palpitations. No paroxysmal nocturnal dyspnea. No orthopnea. No lightheadedne ss or dizziness. No syncopal episodes. Abdominal: Reports abdominal pain. No nausea, vomiting. No diarrhea. No constipation. No bloody or tarry stools reports loss of appetite. Genitourinary: No dysuria, increased frequency, urgency. No urinary retention, bilateral large hydrocele Musculoskeletal: No myalgias. positive for muscle weakness, positive for gait dysfunction, no frequent falls. positive for back pain. No neck pain. Integumentary: No wounds, no lesions. No rash or pruritus. No unusual bruising. No change in hair or nails. Neurologic: No aphasia. No facial droop. No change in mentation. No head injury. No headache. No paralysis. No paresthesia. Psychiatric: positive for depression. No anxiety. positive for mood swings. Endocrine: No abnormal blood sugars. No weight change. PHYSICAL EXAMINATION: General: 82-year-old male in down in bed in no distress HEENT: Head is atraumatic, normocephalic, pupils were equal round reactive to light and recommendation, extraocular muscle movement were intact, sclera nonicteric, conjunctivae were pale, mucous membranes of the mouth are somewhat dry. Neck: Supple, no JVP, normal carotid upstroke bilaterally, no lymphadenopathy. Chest: Decreased breath sounds at the bases, few rhonchi, no expiratory wheezes, no chest wall tenderness, no intercostal retractions. Heart: First heart sound is normal, second heart sound is normal there is systolic ejection murmur 2/6 located in the left sternal border, irregularly irregular due to atrial fibrillation. Abdomen: Soft, nontender, nondistended, positive bowel sounds. Extremities: There is +1 edema no calf tenderness DP +2 bilaterally. Neurologic examination: Patient is awake alert and oriented X3, cranial nerves II-12 appear grossly intact, muscle power were4 out of 5 in upper extremities and 2 out of 5 in bilateral lower extremities, deep tendon reflexes normal bilaterally. ASSESSMENT AND PLAN: 1. Acute symptomatic anemia post EGD that showed gastritis scheduled for colonoscopy tomorrow morning.Post 4 units of packed red blood cell transfusion continue Protonix 40 mg IV push every 24 hours. 2. Acute blood loss anemia status post 4 units of packed consult for dysphagia. Hemoglobin currently stable. 3. Type II with myocardial injury due to symptomatic and severe anemia. Continue to transfuse the patient keep hemoglobin above 8, hold the patient beta michelle for now due to his hypertension as well as bradycardia. 4. Severe sinus bradycardia likely related to beta michelle. His heart rate recovered and he was started back on metoprolol 12.5 mg orally twice every day by cardiology 5. Chronic atrial fibrillation. Continue metoprolol 12.5 mg orally twice every day monitor the patient very closely. 6 continue metoprolol. Hypertension and hypertensive cardiovascular disease. continue metoprolol 12.5 mg orally twice every day. 7. Hyperlipidemia. Continue patient on atorvastatin 20 mg orally once every day. 8. History of gout. Continue allopurinol 100 mg orally once every day. 9. Acute kidney injury due to acute tubular necrosis as well as vasomotor nephropathy due to GI bleed. Continue IV fluid resuscitation the form of normal saline at 75 mL an hour discontinue Lasix, discontinue potassium, discontinue ARB the next 24 hours. 10. Coronary artery disease status post CABG 5 in 2007. Continue patient on atorvastatin 20 mg once every day, Cardiology consultation. 11. Hypothyroidism. Continue Synthroid 350 g orally once every day artery the patient TSH and free T4. 12. Bilateral large hydrocele. We will do care of it as an outpatient. 13. DVT prophylaxis. Bilateral knee-high SHILA hose. 14. GI prophylaxis. Continue patient on Protonix 40 mg IV push every 24 hours. 15. Physical therapy evaluation. Objective - Vital Signs Vital signs: Vital Signs Temp 97.6 F 04/17/23 08:00 Pulse 81 04/17/23 11:00 Resp 20 04/17/23 11:00 BP 128/75 04/17/23 11:00 Pulse Ox 95 04/17/23 11:00 FiO2 Intake & Output 04/16/23 04/17/23 04/17/23 18:59 06:59 18:59 Intake Total 1100 1800 2250 Output Total 400 0 500 Balance 700 1800 1750 Weight 101.1 kg Intake: IV 1100 600 250 Sodium Chloride 0.9% 1, 600 600 250 000 ml @ 50 mls/hr IV . Q20H [facility] Rx#:[id number] Oral 1200 2000 Output: Urine 400 0 0 Urine/Stool Mix 500 Other: Voiding Method Urinal Bedside Commode Urinal # Voids 1 1 1 # Bowel Movements 1 1 - Labs CBC & Chem 7: 04/17/23 05:35 04/17/23 05:35 Labs: Abnormal Lab Results - Last 24 Hours (Table) 04/17/23 04/17/23 04/17/23 Range/Units 00:00 05:35 05:35 RBC 2.63 L 2.80 L (4.30-5.90) m/uL Hgb 7.9 L 8.5 L (13.0-17.5) gm/dL Hct 23.9 L 25.5 L (39.0-53.0) % RDW 18.2 H 17.8 H (11.5-15.5) % Plt Count 145 L (150-450) k/uL BUN 53 H (9-20) mg/dL Glucose 104 H (74-99) mg/dL Calcium 8.0 L (8.4-10.2) mg/dL AST 205 H (17-59) U/L ALT 214 H (4-49) U/L
[2023-04-17 13:29] LABS: Anisocytosis Slight; HCT 27.9 % (39.0-53.0); HGB 8.9 gm/dL (13.0-17.5); Hypochromasia Marked; MCH 29.8 pg (25.0-35.0); MCHC 31.8 g/dL (31.0-37.0); MCV 93.7 fL (80.0-100.0); Mean Platelet Volume 8.9; Platelet Count 142 k/uL (150-450); Poikilocytosis Slight; RBC 2.97 m/uL (4.30-5.90); RDW 17.5 % (11.5-15.5); WBC 9.6 k/uL (3.8-10.6)
--- NOTE | 2023-04-17 15:59 | P.PN ---
Subjective Progress Note Date: 04/17/23 Principal diagnosis: Anemia This is an 82-year-old male with multiple comorbidities who presented to the emergency department for generalized weakness, fatigue and low blood pressure at home. He was found to be severely anemic in the emergency department, hypotensive and bradycardic, with acute kidney injury. His past medical history includes atrial fibrillation on Xarelto reported last taken on 04/14/2023, coronary artery disease with previous CABG, asthma, hypothyroidism, post thyroidectomy, and hypertension. Patient is seen and examined in the ICU. He appears weak and lethargic. Somewhat of a poor historian at this time. He denies any black stool, bright red blood per rectum, no abdominal pain, nausea or vomiting. Denies any previous history of peptic ulcer disease or GI bleed. He is unsure if he takes any NSAIDs. Admitting hemoglobin was 5.8 and INR 3.1, he was given 3 units of blood with a repeat hemoglobin today 8.4. So been given vitamin K 10 mg IVPB as well as Kcentra. he is currently denying any abdominal pain, shortness of breath, chest pain, nausea or vomiting. Nursing reports no bleeding and no bowel movement since he's been in the ICU. States that he may have had a possible dark stool in the emergency department. Reviewing his recor ds appears that he had a colonoscopy in [address] Borges for screening colonoscopy which found multiple colon polyps and rectal polyp. 04/17/2023 Patient seen and examined today as a follow-up. He underwent EGD without any evidence of active bleeding or old blood noted, mild gastritis. Patient did not complete his bowel prep as ordered and is still having thick brown stool. Hemoglobin stable today at 8.9. Total bilirubin 1.2 AST 205 ALT 214 alkaline phosphatase 109 he denies any abdominal pain, nausea or vomiting just states he is tired. Objective - Vital Signs Vital signs: Vital Signs Temp 97.6 F 04/17/23 08:00 Pulse 81 04/17/23 11:00 Resp 20 04/17/23 11:00 BP 128/75 04/17/23 11:00 Pulse Ox 95 04/17/23 11:00 FiO2 Intake & Output 04/16/23 04/17/23 04/17/23 18:59 06:59 18:59 Intake Total 1100 1800 2250 Output Total 400 0 500 Balance 700 1800 1750 Weight 101.1 kg Intake: IV 1100 600 250 Sodium Chloride 0.9% 1, 600 600 250 000 ml @ 50 mls/hr IV . Q20H [facility] Rx#:[id number] Oral 1200 2000 Output: Urine 400 0 0 Urine/Stool Mix 500 Other: Voiding Method Urinal Bedside Commode Urinal # Voids 1 1 1 # Bowel Movements 1 1 - Exam General appearance: The patient is alert, oriented, appears in no acute distress. HET: Head is normocephalic and atraumatic. Conjunctiva pink. Sclera anicteric. Neck: Supple without lymphadenopathy. Abdomen: Soft, nontender, nondistended with bowel sounds. No guarding or rigidity. Extremities: Normal skin color and turgor. No pedal edema Skin: No rashes, no jaundice Neurological: No focal deficits. Alert and oriented. - Labs CBC & Chem 7: 04/17/23 12:59 04/17/23 05:35 Labs: Abnormal Lab Results - Last 24 Hours (Table) 04/17/23 04/17/23 04/17/23 Range/Units 00:00 05:35 05:35 RBC 2.63 L 2.80 L (4.30-5.90) m/uL Hgb 7.9 L 8.5 L (13.0-17.5) gm/dL Hct 23.9 L 25.5 L (39.0-53.0) % RDW 18.2 H 17.8 H (11.5-15.5) % Plt Count 145 L (150-450) k/uL BUN 53 H (9-20) mg/dL Glucose 104 H (74-99) mg/dL Calcium 8.0 L (8.4-10.2) mg/dL AST 205 H (17-59) U/L ALT 214 H (4-49) U/L 04/17/23 Range/Units 12:59 RBC 2.97 L (4.30-5.90) m/uL Hgb 8.9 L (13.0-17.5) gm/dL Hct 27.9 L (39.0-53.0) % RDW 17.5 H (11.5-15.5) % Plt Count 142 L (150-450) k/uL BUN (9-20) mg/dL Glucose (74-99) mg/dL Calcium (8.4-10.2) mg/dL AST (17-59) U/L ALT (4-49) U/L Assessment and Plan (1) Anemia Narrative/Plan: 82-year-old male presenting for weakness and fatigue found to be hypotensive, b radycardic acute kidney injury and severely anemic. This gentleman who is a history of coronary artery disease status post CABG and atrial fibrillation on Cymbalta. He was found to have a INR of 3.1 on admission and hemoglobin of 5.8. No stephanie bleeding noted. He did have positive heme stool. No previous history of GI bleed or peptic ulcer disease, last colonoscopy 2014 significant for multiple colon polyps and rectal polyp. He is to transfuse 3 units of PRBC with a hemoglobin of 8.1 and has been given vitamin K and Kcentra. Cannot rule out possible upper GI bleed as it was reported he may have had a dark stool in the emergency department also elevated BUN but does have acute kidney injury as well. Vertebral repeat stat INR and and that is normal will proceed today with upper endoscopy. This procedure and plan of care discussed with the patient. The patient is status post EGD without any evidence of bleeding or old blood noted. Mild gastritis. Continue proton pump inhibitor and plan for colonoscopy. Current Visit: Yes Status: Acute Code(s): D64.9 - ANEMIA, UNSPECIFIED SNOMED Code(s): 453314154 (2) Elevated LFTs Narrative/Plan: Elevated LFTs likely secondary to hypoperfusion, the patient also showed evidence on CT angiogram of reflux of contrast to the liver. Current Visit: Yes Status: Acute Code(s): R79.89 - OTHER SPECIFIED ABNORMAL FINDINGS OF BLOOD CHEMISTRY SNOMED Code(s): 844356894 (3) Weakness Current Visit: Yes Status: Acute Code(s): R53.1 - WEAKNESS SNOMED Code(s): 04129433 (4) Hypotension Current Visit: Yes Status: Acute Code(s): I95.9 - HYPOTENSION, UNSPECIFIED SNOMED Code(s): 20295336 (5) CAD (coronary artery disease) Current Visit: Yes Status: Acute Code(s): I25.10 - ATHSCL HEART DISEASE OF [place] CORONARY ARTERY W/O ANG PCTRS SNOMED Code(s): 56659540 (6) Atrial fibrillation Current Visit: Yes Status: Acute Code(s): I48.91 - UNSPECIFIED ATRIAL FIBRILLATION SNOMED Code(s): 51502262 (7) Bradycardia Current Visit: Yes Status: Acute Code(s): R00.1 - BRADYCARDIA, UNSPECIFIED SNOMED Code(s): 75857688 (8) Coagulopathy Current Visit: Yes Status: Acute Code(s): D68.9 - COAGULATION DEFECT, UNSPECIFIED SNOMED Code(s): 57803236 (9) Elevated troponin Current Visit: Yes Status: Acute Code(s): R79.89 - OTHER SPECIFIED ABNORMAL FINDINGS OF BLOOD CHEMISTRY SNOMED Code(s): 249523331 (10) Renal insufficiency Current Visit: Yes Status: Acute Code(s): N28.9 - DISORDER OF KIDNEY AND URETER, UNSPECIFIED SNOMED Code(s): 807854731 Plan: 1. Continue symptomatic and supportive care 2. Daily CBC, transfuse for hemoglobin less than 7 3. Clear liquid diet, nothing by mouth after midnight 4. Finish bowel prep today 5. Hold anticoagulation 6. Avoid NSAIDs 7. Continue Protonix 40 mg daily 8. Patient is status post EGD, will reschedule patient for colonoscopy tomorrow as patient did not complete bowel prep yesterday Thank you for this consultation, we will continue to follow. Dr. Neville Wheeler I agree with the dictator's note, documented as a scribe by María Pastrana.
[2023-04-17 16:36] LABS: Anisocytosis Slight; HCT 25.6 % (39.0-53.0); HGB 8.4 gm/dL (13.0-17.5); Hypochromasia Moderate; MCHC 32.7 g/dL (31.0-37.0); MCV 91.7 fL (80.0-100.0); Mean Platelet Volume 8.9; Platelet Count 144 k/uL (150-450); Poikilocytosis Slight; RBC 2.79 m/uL (4.30-5.90); RDW 17.6 % (11.5-15.5); WBC 8.3 k/uL (3.8-10.6)
[2023-04-17] MEDS ORDERED: MAGNESIUM CITRATE 296 ML BOTTLE PO ONE (18:00)
[2023-04-17] MEDS: ATORVASTATIN 20 MG TAB PO SCH (22:16)
[2023-04-18 00:37] LABS: Anisocytosis Slight; HCT 26.1 % (39.0-53.0); HGB 8.5 gm/dL (13.0-17.5); Hypochromasia Moderate; MCH 29.8 pg (25.0-35.0); MCHC 32.5 g/dL (31.0-37.0); MCV 91.9 fL (80.0-100.0); Mean Platelet Volume 9.2; Platelet Count 140 k/uL (150-450); Poikilocytosis Slight; RBC 2.84 m/uL (4.30-5.90); RDW 17.7 % (11.5-15.5); WBC 8.6 k/uL (3.8-10.6)
--- NOTE | 2023-04-18 01:14 | PN ---
PROGRESS NOTE SUBJECTIVE: Mr. Waldron underwent upper endoscopy yesterday, revealed gastritis. No active bleeding. He is resting comfortably. He is in atrial fib, rate is controlled. He is on Xarelto which has been held in view of significant GI bleed. Today, the prep was insufficient. He will have a colonoscopy tomorrow. OBJECTIVE: VITALS: Stable. HEART: S1, S2 with a regular rhythm. LUNGS: Reveal diminished air entry. ABDOMEN: Unremarkable. EXTREMITIES: Lower extremity exam is unremarkable. MMODL / IJN: [id number] /
[2023-04-18] MEDS ORDERED: LIDOCAINE 1% INJ 10MG/ML (20 ML MDV) ONE (07:30)
[2023-04-18] MEDS ORDERED: ETOMIDATE 2 MG/ML 10 ML VIAL ONE (07:30)
[2023-04-18] MEDS ORDERED: SODIUM CHLORIDE 0.9% 500 ML 500 ML IV ONE (07:49)
--- NOTE | 2023-04-18 07:51 | P.PCN ---
Date of Procedure: 04/18/23 Procedure(s) Performed: BRIEF HISTORY: Patient is a 82-year-old pleasant white male admitted to the intensive care unit with severe symptomatic anemia and hemoglobin of 5.5 g percent requiring 2 units of PRBC transfusion. He had coagulopathy secondary to eliquis and it has been on hold. Received vitamin K and Kcentra for reversal of anticoagulation .He had an upper endoscopy 2 days ago that was negative. His and scheduled for colonoscopy to evaluate further. PROCEDURE PERFORMED: Colonoscopy with biopsy. PREOPERATIVE DIAGNOSIS: Severe symptomatic anemia and a negative upper endoscopy. IV sedation per Anesthesia. PROCEDURE: After informed consent was obtained, the patient, was brought into the endoscopy unit. IV sedation was administered by Anesthesia under continuous monitoring. Digital rectal examination was normal. Initially the Olympus CF-160 flexible video colonoscope was then inserted in the rectum, gradually advanced into the cecum without any difficulty. Careful examination was performed as the scope was gradually being withdrawn. Ileocecal valve and the appendiceal orifice were visualized and appeared normal. Prep was excellent. Mucosa of the cecum, a 6 minute a polyp that was removed by cold biopsy. In the ascending colon there was a 5 limited polyp that was removed by cold biopsy. In the descending colon there was a 3 mm polyp that was removed by cold biopsy. Rest of the ascending colon, transverse colon, descending colon, sigmoid colon, and rectum appeared normal. Scattered sigmoid diverticulosis Retroflexion was performed in the rectum and small internal hemorrhoids were seen. The patient tolerated the procedure well. IMPRESSION: 6 mm polyp status post cold biopsy 5 mm ascending colon polyp status post cold biopsy 3 mm descending colon polyp status post cold biopsy Moderate sigmoid diverticulosis Small internal hemorrhoids RECOMMENDATIONS: Findings of this examination were discussed with the patient . He was advised to follow upwith the biopsy results. Advance to regular diet. and monitor CBC closely. Resume anticoagulation if clinically indicated.
[2023-04-18 08:22] LABS: Glucose,Whole Blood 114 mg/dL (70-110)
[2023-04-18] MEDS: PANTOPRAZOLE 40 MG/10 ML VIAL IV SCH (08:26)
[2023-04-18] MEDS: NITROGLYCERIN OINT 1 INCH/GM PACKET TOPICAL SCH ×3 (08:27→23:25)
[2023-04-18] MEDS: allopurinoL 100 MG TAB PO SCH (08:27)
[2023-04-18] MEDS: METOPROLOL TARTRATE 12.5 MG TAB PO SCH (08:28)
[2023-04-18] MEDS ORDERED: FUROSEMIDE 10 MG/ML 4 ML VIAL IV STA (09:27)
[2023-04-18 09:49] LABS: Anisocytosis Slight; HCT 26.7 % (39.0-53.0); HGB 8.5 gm/dL (13.0-17.5); Hypochromasia Moderate; MCH 29.4 pg (25.0-35.0); MCHC 31.7 g/dL (31.0-37.0); MCV 92.6 fL (80.0-100.0); Mean Platelet Volume 9.4; Platelet Count 150 k/uL (150-450); Poikilocytosis Slight; RBC 2.88 m/uL (4.30-5.90); RDW 17.2 % (11.5-15.5); WBC 7.5 k/uL (3.8-10.6)
--- NOTE | 2023-04-18 10:08 | XR ---
EXAMINATION TYPE: XR chest 1V portable DATE OF EXAM: 04/18/2023 9:30 AM CLINICAL INDICATION:Male, 82 years old with history of dyspnea; H COMPARISON: Chest radiographs from 04/15/2023 TECHNIQUE: XR chest 1V portable Frontal view of the chest. FINDINGS: Lungs/Pleura: No evidence of focal consolidation or pneumothorax. Blunting of the costophrenic angles is present. Pulmonary vascularity: Pulmonary vascular congestion. Heart/mediastinum: Cardiomediastinal silhouette is enlarged and stable. Musculoskeletal: No acute osseous pathology. Midline sternotomy wires are noted. IMPRESSION: Cardiomegaly, pulmonary vascular congestion and bilateral pleural effusions. Correlate with BNP for c ongestive heart failure.
[2023-04-18 10:11] LABS: ALT 173 U/L (4-49); AST 116 U/L (17-59); African American GFR (CKD) >90 (>60 ml/min/1.73 sqM); Albumin 2.6 g/dL (3.5-5.0); Alkaline Phosphatase 123 U/L (38-126); Anion Gap 7 mmol/L; Blood Urea Nitrogen 23 mg/dL (9-20); Calcium 8.1 mg/dL (8.4-10.2); Carbon Dioxide 27 mmol/L (22-30); Chloride 107 mmol/L (98-107); Glucose 99 mg/dL (74-99); Magnesium 2.5 mg/dL (1.6-2.3); Non-African American GFR(CKD) 82 (>60 ml/min/1.73 sqM); Potassium 3.9 mmol/L (3.5-5.1); Sodium 141 mmol/L (137-145)
[2023-04-18] MEDS ORDERED: SIMETHICONE 40 MG/0.6 ML DROPS 2,000 MG/30 ML BOTTLE PO ONE (10:30)
--- NOTE | 2023-04-18 11:51 | P.PN ---
Subjective Progress Note Date: 04/18/23 I am seeing this patient in consultation today 04/16/2023 after the patient presented yesterday morning with a chief complaint of generalized weakness and fatigue. He is found to be severely anemic and hypotensive, and was admitted to the intensive care unit. Patient is an 82-year-old white male with past medical history significant for atrial fibrillation anticoagulated on Xarelto, asthma, hypothyroidism post thyroidectomy, hypertension, coronary artery disease with previous CABG, among other things. As stated above, the patient presented yesterday morning with ongoing progressively worsening generalized weakness. Patient's blood pressures were low at home. He also admits is an confusion and hallucinations, but is alert and oriented at present. Largely denies any infectious symptoms. On arrival to the emergency room, he is found to be anemic with a hemoglobin of 5.8 g/dL. He was hypotensive as well, and is receiving his third unit of PRBCs. Patient was admitted to the intensive care unit for possible vasopressor support in the meantime. Patient denies any bloody bowel movements, melena, hematemesis. Denies any abdominal pain. Denies any trauma. He does take Xarelto for his history of atrial fibrillation. Heart rhythm is currently atrial fibrillation with slow ventricular response. His metoprolol and Xarelto are on hold. He was given doses of prothrombin complex and vitamin K in the emergency room. Nurses have not noticed any acute blood loss. Chest CTA done on arrival did not show any evidence of aortic dissection or aneurysm. There is diffuse atherosclerotic disease. No evidence of pulmonary embolus. There were prominent right and left main pulmonary arteries, seen with pulmonary retention. Massive cardiomegaly, moderate to large bilateral pleural effusions, reflex contrast to the, liver seen with congestive heart failure. No evidence of obstruction or free air. There was prostatemegaly with large bilateral hydroceles. Patient is currently sitting up in bed, on 3 L/m nasal cannula, in no acute distress. Most recent CBC shows a WBC count of 13.1, hemoglobin 7.6, hematocrit 24.3, platelets 168. INR was 3.1. APTT 1-1/2 times upper limit. CMP on arrival showed a sodium 138, potassium 4.9, chloride 101, serum bicarb 24, BUN 82, creatinine 1.81, glucose 88. LFTs mildly elevated. Troponins also elevated, likely related to anemia and demand/supply. Stool occult was positive. Normal saline is infusing at 75 ML's per hour. Blood pressure is normalized. ECG shows atrial fibrillation with SVR and RBBB, No obvious acute ischemic changes. afebrile. He will be monitored in the intensive care unit. The patient is seen today 04/17/2023 in follow-up in the intensive care unit. He is currently sitting up at the bedside. Awake and alert in no acute distress. He is maintaining O2 saturations in the 90s on 2 L/m per nasal cannula. Normal saline at 50 MLS per hour. He remains in atrial fibrillation and controlled ventricular response. He is status post 3 units of packed red blood cells this admission. Current hemoglobin 8.5. He did undergo EGD yesterday that revealed evidence of gastritis but no acute bleeding. The plan is for colonoscopy today. White count 8.6. Sodium 139. Potassium 4.3. Bicarb 27. BUN 53. Creatinine 1.05. AST 205. ALT 214. Alk phos 109. He remains nothing by mouth. Remains on IV Protonix. Cardiogram revealed preserved left ventricular systolic function. There is severely dilated right ventricle with moderate pulmonary hypertension. The patient is seen today 04/18/2023 in follow-up in the intensive care unit. He is currently resting comfortably in bed. Awake and alert in no acute di stress. Just a bit drowsy. He did undergo colonoscopy this morning and was found to have a 6 mm polyp status post cold biopsy, 5 mm ascending colon polyp status post cold biopsy, 3 mm descending colon polyp status post cold biopsy. Moderate sigmoid diverticulosis. Small internal hemorrhoids. No evidence of acute GI bleeding. Once for small bowel capsule endoscopy today. Chest x-ray reveals cardiomegaly, pulmonary vascular congestion and bilateral pleural effusions. He is status post 3 units of packed red blood cells this admission. Current hemoglobin 8.5. Platelets 150. White count 7.5. Sodium 141. Potassium 3.9. Bicarb 27. BUN 23. Creatinine 0.82. Glucose 99. AST 116. ALT 173. Remains on IV Protonix. Objective - Vital Signs Vital signs: Vital Signs Temp 98.1 F 04/18/23 08:07 Pulse 90 04/18/23 11:00 Resp 18 04/18/23 11:00 BP 124/71 04/18/23 11:00 Pulse Ox 94 L 04/18/23 11:00 FiO2 Intake & Output 04/17/23 04/18/23 04/18/23 18:59 06:59 18:59 Intake Total 4560 630 260 Output Total 2500 0 300 Balance 0 630 -40 Weight 103.7 kg Intake: IV 640 630 260 Invasive Line 1 40 30 10 Sodium Chloride 0.9% 1, 600 600 50 000 ml @ 50 mls/hr IV . Q20H [facility] Rx#:[id number] Oral 3920 Output: Urine 0 0 300 Urine/Stool Mix 2500 Other: Voiding Method Bedside Commode Bedside Commode # Voids 1 1 1 # Bowel Movements 0 1 0 - Exam GENERAL EXAM: Alert, 82-year-old male, resting in bed, on 3 L/m per nasal cannula, comfortable in no apparent distress. HEAD: Normocephalic and atraumatic EYES: Normal reaction of pupils, equal size. NOSE: Clear with pink turbinates. THROAT: No erythema or exudates. NECK: No masses, no JVD. CHEST: No chest wall deformity. LUNGS: Equal air entry with diminished bibasilar lung sounds. No wheezes, rhonchi, crackles. No conversational dyspnea. CVS: S1 and S2 normal with grade 2 systolic murmur, irregular rhythm. No other extra heart sounds ABDOMEN: No hepatosplenomegaly, active bowel sounds, no guarding or rigidity. There is small periumbilical hernia Genitourinary: Large scrotal edema/suspected hydrocele, nontender SPINE: No scoliosis or deformity SKIN: No rashes CENTRAL NERVOUS SYSTEM: No focal deficits, tone is normal in all 4 extremities. EXTREMITIES: There is no peripheral edema, clubbing, or cyanosis. Peripheral pulses are intact. - Labs CBC & Chem 7: 04/18/23 09:26 04/18/23 09:26 Labs: Abnormal Lab Results - Last 24 Hours (Table) 04/17/23 04/17/23 04/18/23 Range/Units 12:59 15:46 00:23 RBC 2.97 L 2.79 L 2.84 L (4.30-5.90) m/uL Hgb 8.9 L 8.4 L 8.5 L (13.0-17.5) gm/dL Hct 27.9 L 25.6 L 26.1 L (39.0-53.0) % RDW 17.5 H 17.6 H 17.7 H (11.5-15.5) % Plt Count 142 L 144 L 140 L (150-450) k/uL BUN (9-20) mg/dL POC Glucose (mg/dL) (70-110) mg/dL Calcium (8.4-10.2) mg/dL Magnesium (1.6-2.3) mg/dL AST (17-59) U/L ALT (4-49) U/L Total Protein (6.3-8.2) g/dL Albumin (3.5-5.0) g/dL 04/18/23 04/18/23 04/18/23 Range/Units 08:20 09:26 09:26 RBC 2.88 L (4.30-5.90) m/uL Hgb 8.5 L (13.0-17.5) gm/dL Hct 26.7 L (39.0-53.0) % RDW 17.2 H (11.5-15.5) % Plt Count (150-450) k/uL BUN 23 H (9-20) mg/dL POC Glucose (mg/dL) 114 H (70-110) mg/dL Calcium 8.1 L (8.4-10.2) mg/dL Magnesium 2.5 H (1.6-2.3) mg/dL AST 116 H (17-59) U/L ALT 173 H (4-49) U/L Total Protein 5.0 L (6.3-8.2) g/dL Albumin 2.6 L (3.5-5.0) g/dL Assessment and Plan Assessment: Severe symptomatic anemia, status post transfusion 3 units PRBCs, improving. Current hemoglobin 8.5. Status post EGD from 04/16/2023 revealed evidence of gastritis but no active bleeding. Colonoscopy today 04/18/2023 revealed some small polyps, moderate sigmoid diverticulosis, small internal hemorrhoids but no active bleeding. Plan is for small bowel capsule endoscopy today. Hypotension, related to hypovolemia and above, recovered Acute hypoxemic respiratory failure, on 3 L/m nasal cannula, related to diastolic CHF exacerbation. Chest CTA demonstrates cardiomegaly, moderate to large bilateral pleural effusions, reflex contrast to the liver, seen with congestive heart failure. Generalized weakness, secondary to anemia Paroxysmal atrial fibrillation, currently with slow ventricular response, normally anticoagulated on Xarelto which is on hold Acute kidney injury, prerenal Elevated troponin, likely related to demand ischemia Mildly elevated LFTs History of asthma, stable History of thyroid cancer status post thyroidectomy and hypothyroidism Coronary artery disease, with remote history of CABG Hyperlipidemia Bilateral hydrocele, asymptomatic Obesity with a BMI of 31.2 kg/m Plan: The patient was seen and evaluated Colonoscopy results, labs and medications reviewed Plan is for small bowel capsule endoscopy today Current hemoglobin stable at 8.5 Could be transferred to the regular medical floor We will continue to follow I have personally seen and examined the patient, performed the documentation and the assessment and plan as written. Number of minutes spent on the visit: 10.
--- NOTE | 2023-04-18 15:29 | P.PN ---
Subjective Progress Note Date: 04/18/23 HISTORY OF PRESENT ILLNESS: This is an 82-year-old male with a previous medical history signifi cant for coronary artery disease status post coronary artery bypass graft 5 in 2007, chronic atrial fibrillation on anticoagulation, hypertension and hypertensive cardio vascular disease, hyperlipidemia, hypothyroidism, gout, obesity with obstructive sleep apnea, patient presented to the emergency department at [facility] because of weakness and increased shortness breath, patient was found to have a hemoglobin of 5.8, patient did have a type and cross and transfuse 2 units of packed red blood cells, patient was admitted to intensive care unit for possible GI bleed, patient has been on Xarelto for long period of time, patient denies any hematemesis or hematochezia he denies any black tarry stool, patient has been drinking significant amount of alcohol including wine as well as vodka for the last few years, patient has been having hard time quitting the alcohol this point in time, patient will be admitted to the ICU, he would be seen in consultation by 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 04/16: Patient is laying down in bed in no apparent distress, he is more sleepy today, his getting IV fluid resuscitation, his hemoglobin is up to 8.1, patient is scheduled for an upper endoscopy today continue Protonix 40 mg IV push every 24 hours, GI consultation appreciated as well as intensive care consultation, we will continue to monitor the patient very closely, his laboratory evaluation was reviewed did not show any evidence of any iron deficiency anemia at this point in time, his B12 levels normal folic acid level is normal as well, we'll continue to monitor the patient very closely, in the intensive care unit. 04/17: Patient remains in intensive care unit, he did receive 1 unit of packed red blood cells yesterday, his hemoglobin is up to 8.5, and scheduled for colonoscopy tomorrow morning, he did have an EGD did not show any evidence of acute of normalities except for mild gastritis, continue PPI for now, monitor the patient very closely. Family was in the setting of his daughter and his wif e was updated about his current condition 04/18: Patient is lying down in bed in no acute distress, he denies any chest pain, no shortness of breath, EGD yesterday was ok, colonoscopy today with Dr.T gibson, showed multiple polyps with sigmoid diverticulosis , we will arrange for Capsule Endoscopy for further evaluation of GI bleed source, we irma continue to monitor cbc very closley and we will restart Xarelto in AM REVIEW OF SYSTEMS: Constitutional: No documented fever, no chills, no night sweats. No weight change. positive for weakness, fatigue or lethargy. positive for daytime sleepiness. HEENT: No headache. No blurred vision or double vision, no loss of vision. positive for loss of Hearing, no ringing in the ears, no dizziness. No nasal drainage or congestion. No epistaxis. No sore throat. Lungs: No shortness of breath, no cough, no sputum production. No wheezing. Reports dyspnea with activity. Cardiovascular: No chest pain, positive for lower extremity edema. No palp itations. No paroxysmal nocturnal dyspnea. No orthopnea. No lightheadedness or dizziness. No syncopal episodes. Abdominal: Reports abdominal pain. No nausea, vomiting. No diarrhea. No constipation. No bloody or tarry stools reports loss of appetite. Genitourinary: No dysuria, increased frequency, urgency. No urinary retention, bilateral large hydrocele Musculoskeletal: No myalgias. positive for muscle weakness, positive for gait dysfunction, no frequent falls. positive for back pain. No neck pain. Integumentary: No wounds, no lesions. No rash or pruritus. No unusual bruising. No change in hair or nails. Neurologic: No aphasia. No facial droop. No change in mentation. No head injury. No headache. No paralysis. No paresthesia. Psychiatric: positive for depression. No anxiety. positive for mood swings. Endocrine: No abnormal blood sugars. No weight change. PHYSICAL EXAMINATION: General: 82-year-old male in down in bed in no distress HEENT: Head is atraumatic, normocephalic, pupils were equal round reactive to light and recommendation, extraocular muscle movement were intact, sclera nonicteric, conjunctivae were pale, mucous membranes of the mouth are somewhat dry. Neck: Supple, no JVP, normal carotid upstroke bilaterally, no lymphadenopathy. Chest: Decreased breath sounds at the bases, few rhonchi, no expiratory wheezes, no chest wall tenderness, no intercostal retractions. Heart: First heart sound is normal, second heart sound is normal there is systolic ejection murmur 2/6 located in the left sternal border, irregularly irregular due to atrial fibrillation. Abdomen: Soft, nontender, nondistended, positive bowel sounds. Extremities: There is +1 edema no calf tenderness DP +2 bilaterally. Neurologic examination: Patient is awake alert and oriented X3, cranial nerves II-12 appear grossly intact, muscle power were4 out of 5 in upper extremities and 2 out of 5 in bilateral lower extremities, deep tendon reflexes normal bilaterally. ASSESSMENT AND PLAN: 1. Acute symptomatic anemia post EGD that showed gastritis, Colonoscopy t lin showed multiple polyps and diverticulosis, could not find out the source of bleeding we will arrange for Capsule endoscopy and we will restart Xarelto in AM Post 4 units of packed red blood cell transfusion continue Protonix 40 mg IV push every 24 hours. 2. Acute blood loss anemia status post 4 units of packed consult for dysphagia. Hemoglobin currently stable. 3. Type II with myocardial injury due to symptomatic and severe anemia. Continue to transfuse the patient keep hemoglobin above 8, hold the patient beta michelle for now due to his hypertension as well as bradycardia. 4. Severe sinus bradycardia likely related to beta michelle. His heart rate recovered and he was started back on metoprolol 12.5 mg orally twice every day by cardiology 5. Chronic atrial fibrillation. Continue metoprolol 12.5 mg orally twice every day monitor the patient very closely. 6 continue metoprolol. Hypertension and hypertensive cardiovascular disease. continue metoprolol 12.5 mg orally twice every day. 7. Hyperlipidemia. Continue patient on atorvastatin 20 mg orally once every da y. 8. History of gout. Continue allopurinol 100 mg orally once every day. 9. Acute kidney injury due to acute tubular necrosis as well as vasomotor nephropathy due to GI bleed. Continue IV fluid resuscitation the form of normal saline at 75 mL an hour discontinue Lasix, discontinue potassium, discontinue ARB the next 24 hours. 10. Coronary artery disease status post CABG 5 in 2007. Continue patient on atorvastatin 20 mg once every day, Cardiology consultation. 11. Hypothyroidism. Continue Synthroid 350 g orally once every day artery the patient TSH and free T4. 12. Bilateral large hydrocele. We will do care of it as an outpatient. 13. DVT prophylaxis. Bilateral knee-high SHILA hose.resume Xarelto in AM 14. GI prophylaxis. Continue patient on Protonix 40 mg IV push every 24 hours. 15. Physical therapy evaluation. Objective - Vital Signs Vital signs: Vital Signs Temp 98.1 F 04/18/23 08:07 Pulse 89 04/18/23 12:00 Resp 24 04/18/23 12:00 BP 119/75 04/18/23 12:00 Pulse Ox 96 04/18/23 12:00 FiO2 Intake & Output 04/17/23 04/18/23 04/18/23 18:59 06:59 18:59 Intake Total 4560 630 260 Output Total 2500 0 300 Balance 2060 630 -40 Weight 103.7 kg Intake: IV 640 630 260 Invasive Line 1 40 30 10 Sodium Chloride 0.9% 1, 600 600 50 000 ml @ 50 mls/hr IV . Q20H [facility] Rx#:[id number] Oral 3920 Output: Urine 0 0 300 Urine/Stool Mix 2500 Other: Voiding Method Bedside Commode Bedside Commode # Voids 1 1 3 # Bowel Movements 0 1 0 - Labs CBC & Chem 7: 04/18/23 09:26 04/18/23 09:26 Labs: Abnormal Lab Results - Last 24 Hours (Table) 04/17/23 04/18/23 04/18/23 Range/Units 15:46 00:23 08:20 RBC 2.79 L 2.84 L (4.30-5.90) m/uL Hgb 8.4 L 8.5 L (13.0-17.5) gm/dL Hct 25.6 L 26.1 L (39.0-53.0) % RDW 17.6 H 17.7 H (11.5-15.5) % Plt Count 144 L 140 L (150-450) k/uL BUN (9-20) mg/dL POC Glucose (mg/dL) 114 H (70-110) mg/dL Calcium (8.4-10.2) mg/dL Magnesium (1.6-2.3) mg/dL AST (17-59) U/L ALT (4-49) U/L Total Protein (6.3-8.2) g/dL Albumin (3.5-5.0) g/dL 04/18/23 04/18/23 Range/Units 09:26 09:26 RBC 2.88 L (4.30-5.90) m/uL Hgb 8.5 L (13.0-17.5) gm/dL Hct 26.7 L (39.0-53.0) % RDW 17.2 H (11.5-15.5) % Plt Count (150-450) k/uL BUN 23 H (9-20) mg/dL POC Glucose (mg/dL) (70-110) mg/dL Calcium 8.1 L (8.4-10.2) mg/dL Magnesium 2.5 H (1.6-2.3) mg/dL AST 116 H (17-59) U/L ALT 173 H (4-49) U/L Total Protein 5.0 L (6.3-8.2) g/dL Albumin 2.6 L (3.5-5.0) g/dL
[2023-04-18] MEDS: METOPROLOL TARTRATE 25 MG TAB PO SCH (20:09)
[2023-04-18] MEDS: ATORVASTATIN 20 MG TAB PO SCH (20:09)
[2023-04-19] MEDS: LEVOTHYROXINE 100 MCG TAB PO SCH (05:13)
[2023-04-19] MEDS: LEVOTHYROXINE 50 MCG TAB PO SCH (05:13)
[2023-04-19] MEDS ORDERED: FUROSEMIDE 10 MG/ML 4 ML VIAL IV STA (07:46)
--- NOTE | 2023-04-19 07:47 | PN ---
PROGRESS NOTE SUBJECTIVE: Mr. Waldron had a colonoscopy that did not reveal site of bleeding. He has a capsule to detect any small bowel bleeding. He is hemodynamically stable. As per the recommendation of Gastroenterology, the Xarelto can be started, but I am concerned since he had a large bleed and required 3 units of packed RBCs. However, we will wait for 5 more days and start Xarelto at 15 mg daily and also by the time, we will get the capsule results. I will increase the metoprolol tartrate to 25 mg b.i.d. OBJECTIVE: VITALS: Stable. HEART: S1 and S2 with irregular rhythm, short systolic murmur. LUNGS: Diminished air entry in bilateral lung tai. Rest of physical exam unchanged. MMODL / IJN: [id number] /
--- NOTE | 2023-04-19 08:03 | P.PN ---
Subjective Progress Note Date: 04/19/23 I am seeing this patient in consultation today 04/16/2023 after the patient presented yesterday morning with a chief complaint of generalized weakness and fatigue. He is found to be severely anemic and hypotensive, and was admitted to the intensive care unit. Patient is an 82-year-old white male with past medical history significant for atrial fibrillation anticoagulated on Xarelto, asthma, hypothyroidism post thyroidectomy, hypertension, coronary artery disease with previous CABG, among other things. As stated above, the patient presented yesterday morning with ongoing progressively worsening generalized weakness. Patient's blood pressures were low at home. He also admits is an confusion and hallucinations, but is alert and oriented at present. Largely denies any infectious symptoms. On arrival to the emergency room, he is found to be anemic with a hemoglobin of 5.8 g/dL. He was hypotensive as well, and is receiving his third unit of PRBCs. Patient was admitted to the intensive care unit for possible vasopressor support in the meantime. Patient denies any bloody bowel movements, melena, hematemesis. Denies any abdominal pain. Denies any trauma. He does take Xarelto for his history of atrial fibrillation. Heart rhythm is currently atrial fibrillation with slow ventricular response. His metoprolol and Xarelto are on hold. He was given doses of prothrombin complex and vitamin K in the emergency room. Nurses have not noticed any acute blood loss. Chest CTA done on arrival did not show any evidence of aortic dissection or aneurysm. There is diffuse atherosclerotic disease. No evidence of pulmonary embolus. There were prominent right and left main pulmonary arteries, seen with pulmonary retention. Massive cardiomegaly, moderate to large bilateral pleural effusions, reflex contrast to the, liver seen with congestive heart failure. No evidence of obstruction or free air. There was prostatemegaly with large bilateral hydroceles. Patient is currently sitting up in bed, on 3 L/m nasal cannula, in no acute distress. Most recent CBC shows a WBC count of 13.1, hemoglobin 7.6, hematocrit 24.3, platelets 168. INR was 3.1. APTT 1-1/2 times upper limit. CMP on arrival showed a sodium 138, potassium 4.9, chloride 101, serum bicarb 24, BUN 82, creatinine 1.81, glucose 88. LFTs mildly elevated. Troponins also elevated, likely related to anemia and demand/supply. Stool occult was positive. Normal saline is infusing at 75 ML's per hour. Blood pressure is normalized. ECG shows atrial fibrillation with SVR and RBBB, No obvious acute ischemic changes. afebrile. He will be monitored in the intensive care unit. The patient is seen today 04/17/2023 in follow-up in the intensive care unit. He is currently sitting up at the bedside. Awake and alert in no acute distress. He is maintaining O2 saturations in the 90s on 2 L/m per nasal cannula. Normal saline at 50 MLS per hour. He remains in atrial fibrillation and controlled ventricular response. He is status post 3 units of packed red blood cells this admission. Current hemoglobin 8.5. He did undergo EGD yesterday that revealed evidence of gastritis but no acute bleeding. The plan is for colonoscopy today. White count 8.6. Sodium 139. Potassium 4.3. Bicarb 27. BUN 53. Creatinine 1.05. AST 205. ALT 214. Alk phos 109. He remains nothing by mouth. Remains on IV Protonix. Cardiogram revealed preserved left ventricular systolic function. There is severely dilated right ventricle with moderate pulmonary hypertension. The patient is seen today 04/18/2023 in follow-up in the intensive care unit. He is currently resting comfortably in bed. Awake and alert in no acute di stress. Just a bit drowsy. He did undergo colonoscopy this morning and was found to have a 6 mm polyp status post cold biopsy, 5 mm ascending colon polyp status post cold biopsy, 3 mm descending colon polyp status post cold biopsy. Moderate sigmoid diverticulosis. Small internal hemorrhoids. No evidence of acute GI bleeding. Once for small bowel capsule endoscopy today. Chest x-ray reveals cardiomegaly, pulmonary vascular congestion and bilateral pleural effusions. He is status post 3 units of packed red blood cells this admission. Current hemoglobin 8.5. Platelets 150. White count 7.5. Sodium 141. Potassium 3.9. Bicarb 27. BUN 23. Creatinine 0.82. Glucose 99. AST 116. ALT 173. Remains on IV Protonix. The patient is seen today 04/19/2023 in follow-up on the regular medical floor. He was transferred out of the intensive care unit yesterday. He is currently awake and alert. He had an episode of shortness of breath earlier this morning while on room air. He was placed on 3 L nasal cannula and is feeling much better. His room air saturation was 89%. He is currently at 98%. Denies any worsening shortness of breath, cough or congestion. He has been afebrile. Hemodynamically stable. Mean arterial pressures in the 90s. Today's labs are pending. He is continued on IV Protonix. Anticoagulated with Xarelto. No active GI bleeding. Objective - Vital Signs Vital signs: Vital Signs Temp 97.8 F 04/19/23 02:00 Pulse 86 04/19/23 02:00 Resp 16 04/19/23 02:00 BP 136/77 04/19/23 02:00 Pulse Ox 90 L 04/19/23 02:00 FiO2 Intake & Output 04/18/23 04/19/23 04/19/23 18:59 06:59 18:59 Intake Total 520 Output Total 300 Balance 220 Weight 103.7 kg Intake: IV 280 Invasive Line 1 20 Invasive Line 3 10 Sodium Chloride 0.9% 1, 50 000 ml @ 50 mls/hr IV . Q20H [facility] Rx#:[id number] Oral 240 Output: Urine 300 Other: Voiding Method Bedside Commode # Voids 3 3 # Bowel Movements 2 - Exam GENERAL EXAM: Alert, very pleasant 82-year-old male, resting in bed, on 3 L/m nasal cannula, in no apparent distress. HEAD: Normocephalic and atraumatic EYES: Normal reaction of pupils, equal size. NOSE: Clear with pink turbinates. THROAT: No erythema or exudates. NECK: No masses, no JVD. CHEST: No chest wall deformity. LUNGS: Equal air entry with diminished bibasilar lung sounds. No wheezes, rhonchi, crackles. CVS: S1 and S2 normal with grade 2 systolic murmur, irregular rhythm. No other extra heart sounds ABDOMEN: No hepatosplenomegaly, active bowel sounds, no guarding or rigidity. There is small periumbilical hernia Genitourinary: Large scrotal edema/suspected hydrocele, nontender SPINE: No scoliosis or deformity SKIN: No rashes CENTRAL NERVOUS SYSTEM: No focal deficits, tone is normal in all 4 extremities. EXTREMITIES: There is no peripheral edema, clubbing, or cyanosis. Peripheral pulses are intact. - Labs CBC & Chem 7: 04/18/23 09:26 04/18/23 09:26 Labs: Abnormal Lab Results - Last 24 Hours (Table) 04/18/23 04/18/23 04/18/23 Range/Units 08:20 09:26 09:26 RBC 2.88 L (4.30-5.90) m/uL Hgb 8.5 L (13.0-17.5) gm/dL Hct 26.7 L (39.0-53.0) % RDW 17.2 H (11.5-15.5) % BUN 23 H (9-20) mg/dL POC Glucose (mg/dL) 114 H (70-110) mg/dL Calcium 8.1 L (8.4-10.2) mg/dL Magnesium 2.5 H (1.6-2.3) mg/dL AST 116 H (17-59) U/L ALT 173 H (4-49) U/L Total Protein 5.0 L (6.3-8.2) g/dL Albumin 2.6 L (3.5-5.0) g/dL Assessment and Plan Assessment: Severe symptomatic anemia, status post transfusion 3 units PRBCs, improving. Current hemoglobin 8.5. Status post EGD from 04/16/2023 revealed evidence of gastritis but no active bleeding. Colonoscopy today 04/18/2023 revealed some small polyps, moderate sigmoid diverticulosis, small internal hemorrhoids but no active bleeding. Plan is for small bowel capsule endoscopy. Hypotension, related to hypovolemia and above, recovered. Mean arterial pressures in the 90s Acute hypoxemic respiratory failure, on 3 L/m nasal cannula, related to diastolic CHF exacerbation. Chest CTA demonstrates cardiomegaly, moderate to large bilateral pleural effusions, reflex contrast to the liver, seen with congestive heart failure. Echocardiogram reveals severe right ventricular dilatation. Moderate pulmonary hypertension. RVSP 40 mmHg. Reduced right ventricular global function. Moderate mitral and severe tricuspid regurgitation. Mild aortic stenosis. Generalized weakness, secondary to anemia Paroxysmal atrial fibrillation, currently with slow ventricular response, anticoagulated on Xarelto Acute kidney injury, prerenal, recovered Elevated troponin, likely related to demand ischemia Mildly elevated LFTs History of asthma, stable History of thyroid cancer status post thyroidectomy and hypothyroidism Coronary artery disease, with remote history of CABG Hyperlipidemia Bilateral hydrocele, asymptomatic Obesity with a BMI of 31.2 kg/m Plan: The patient was seen and evaluated Medications reviewed He did have an episode of desaturation on room air Currently on oxygen at 3 L nasal cannula and improved We'll give Lasix 40 mg IVP 1 Today's labs are pending No active GI bleeding noted Cardiology and GI services are on the case This patient was seen independently by the pulmonary nurse practitioner I have personally seen and examined the patient, performed the documentation and the assessment and plan as written. Number of minutes spent on the visit: 24.
[2023-04-19] MEDS: PANTOPRAZOLE 40 MG/10 ML VIAL IV SCH (08:51)
[2023-04-19] MEDS: NITROGLYCERIN OINT 1 INCH/GM PACKET TOPICAL SCH ×3 (08:51→23:08)
[2023-04-19] MEDS: METOPROLOL TARTRATE 25 MG TAB PO SCH ×2 (08:52→20:05)
[2023-04-19] MEDS: allopurinoL 100 MG TAB PO SCH (08:52)
[2023-04-19 09:23] LABS: BUN/Creat Ratio 19.25 Ratio (12.00-20.00); Blood Urea Nitrogen 15.4 mg/dL (9.0-27.0); Chloride 109 mmol/L (96-109); Glucose 119 mg/dL (70-110); Potassium 3.9 mmol/L (3.5-5.5); Sodium 145 mmol/L (135-145)
[2023-04-19 09:24] LABS: ALT 152 U/L (10-49); AST 76 U/L (14-35); Albumin 3.4 g/dL (3.8-4.9); Albumin/Globulin Ratio 1.55 Ratio (1.60-3.17); Alkaline Phosphatase 127 U/L (41-126); Calcium 8.6 mg/dL (8.7-10.3); Carbon Dioxide 25.6 mmol/L (21.6-31.8); Globulin 2.2 g/dL (1.6-3.3); Total Bilirubin 0.9 mg/dL (0.3-1.2); Total Protein 5.6 g/dL (6.2-8.2)
[2023-04-19 09:26] LABS: Basophils # (A) 0.02 X 10*3/uL (0.00-0.10); Basophils % (A) 0.2 %; Eosinophils # (A) 0.11 X 10*3/uL (0.04-0.35); Eosinophils % (A) 1.3 %; HCT 32.6 % (39.6-50.0); HGB 9.8 g/dL (13.0-17.0); Lymphocytes # (A) 0.69 X 10*3/uL (0.90-5.00); Lymphocytes % (A) 8.2 %; MCH 28.5 pg (27.0-32.0); MCHC 30.1 g/dL (32.0-37.0); MCV 94.8 FL (80.0-97.0); Mean Platelet Volume 11.8 FL (9.5-12.2); Monocytes # (A) 0.91 X 10*3/uL (0.20-1.00); Monocytes % (A) 10.8 %; NRBC Per 100 WBC 0 X 10*3/uL (0.00-0.01); Neutrophils # (A) 6.61 X 10*3/uL (1.80-7.70); Neutrophils % (A) 78.8 %; Platelet Count 205 X 10*3/uL (140-440); RBC 3.44 X 10*6/uL (4.40-5.60); RDW 17.7 % (11.5-14.5)
[2023-04-19] MEDS: ATORVASTATIN 20 MG TAB PO SCH (20:05)
--- NOTE | 2023-04-19 22:23 | PN ---
PROGRESS NOTE DATE OF SERVICE: 04/19/2023 SUBJECTIVE: This is an 82-year-old gentleman, who was admitted with acute symptomatic anemia, had a small-bowel capsule study yesterday. No chest pain. No palpitations. No fever. OBJECTIVE: VITAL SIGNS: Pulse is 92, blood pressure 142/70, pulse ox 94% on room air. CHEST: A few scattered rhonchi. ABDOMEN: Soft. NERVOUS SYSTEM: Nonfocal. LABORATORY DATA: Hemoglobin 9.8. LFTs are noted. ASSESSMENT: 1. Acute symptomatic anemia, status post colonoscopy showing polyps and a capsule endoscopy and 4 units transfusion. 2. Type 2 myocardial injury. 3. Severe sinus bradycardia, chronic atrial fibrillation. 4. Hypertension. 5. History of gout. 6. Multiple complex medical issues. RECOMMENDATIONS: Recommend to continue current management and continue symptomatic treatment. Hemoglobin is rather stable at this time. No active bleeding is noted. At this time, I recommend repeat labs in the morning and elevated creatinine. Gastroenterology input and closely follow with Gastroenterology and Pulmonology. Prognosis guarded. Further recommendations to follow. The patient is keen on going home. MMODL / IJN: [id number] /
[2023-04-20] MEDS: LEVOTHYROXINE 50 MCG TAB PO SCH (05:04)
[2023-04-20] MEDS: LEVOTHYROXINE 100 MCG TAB PO SCH (05:04)
[2023-04-20] MEDS: PANTOPRAZOLE 40 MG/10 ML VIAL IV SCH (08:52)
[2023-04-20] MEDS: allopurinoL 100 MG TAB PO SCH (08:52)
[2023-04-20] MEDS: NITROGLYCERIN OINT 1 INCH/GM PACKET TOPICAL SCH ×2 (08:52→15:16)
[2023-04-20] MEDS: METOPROLOL TARTRATE 25 MG TAB PO SCH ×2 (08:53→22:01)
[2023-04-20 10:25] LABS: Basophils # (A) 0.03 X 10*3/uL (0.00-0.10); Basophils % (A) 0.4 %; Eosinophils # (A) 0.23 X 10*3/uL (0.04-0.35); Eosinophils % (A) 2.9 %; HCT 28.3 % (39.6-50.0); HGB 8.5 g/dL (13.0-17.0); Lymphocytes # (A) 0.77 X 10*3/uL (0.90-5.00); Lymphocytes % (A) 9.7 %; MCH 27.6 pg (27.0-32.0); MCV 91.9 FL (80.0-97.0); Mean Platelet Volume 11.5 FL (9.5-12.2); Monocytes # (A) 1.05 X 10*3/uL (0.20-1.00); Monocytes % (A) 13.2 %; NRBC Per 100 WBC 0 X 10*3/uL (0.00-0.01); Neutrophils # (A) 5.82 X 10*3/uL (1.80-7.70); Neutrophils % (A) 73.4 %; Platelet Count 187 X 10*3/uL (140-440); RBC 3.08 X 10*6/uL (4.40-5.60); RDW 17.2 % (11.5-14.5); WBC 7.93 X 10*3/uL (4.50-10.00)
--- NOTE | 2023-04-20 10:34 | P.PN ---
Subjective Progress Note Date: 04/20/23 I am seeing this patient in consultation today 04/16/2023 after the patient presented yesterday morning with a chief complaint of generalized weakness and fatigue. He is found to be severely anemic and hypotensive, and was admitted to the intensive care unit. Patient is an 82-year-old white male with past medical history significant for atrial fibrillation anticoagulated on Xarelto, asthma, hypothyroidism post thyroidectomy, hypertension, coronary artery disease with previous CABG, among other things. As stated above, the patient presented yesterday morning with ongoing progressively worsening generalized weakness. Patient's blood pressures were low at home. He also admits is an confusion and hallucinations, but is alert and oriented at present. Largely denies any infectious symptoms. On arrival to the emergency room, he is found to be anemic with a hemoglobin of 5.8 g/dL. He was hypotensive as well, and is receiving his third unit of PRBCs. Patient was admitted to the intensive care unit for possible vasopressor support in the meantime. Patient denies any bloody bowel movements, melena, hematemesis. Denies any abdominal pain. Denies any trauma. He does take Xarelto for his history of atrial fibrillation. Heart rhythm is currently atrial fibrillation with slow ventricular response. His metoprolol and Xarelto are on hold. He was given doses of prothrombin complex and vitamin K in the emergency room. Nurses have not noticed any acute blood loss. Chest CTA done on arrival did not show any evidence of aortic dissection or aneurysm. There is diffuse atherosclerotic disease. No evidence of pulmonary embolus. There were prominent right and left main pulmonary arteries, seen with pulmonary retention. Massive cardiomegaly, moderate to large bilateral pleural effusions, reflex contrast to the, liver seen with congestive heart failure. No evidence of obstruction or free air. There was prostatemegaly with large bilateral hydroceles. Patient is currently sitting up in bed, on 3 L/m nasal cannula, in no acute distress. Most recent CBC shows a WBC count of 13.1, hemoglobin 7.6, hematocrit 24.3, platelets 168. INR was 3.1. APTT 1-1/2 times upper limit. CMP on arrival showed a sodium 138, potassium 4.9, chloride 101, serum bicarb 24, BUN 82, creatinine 1.81, glucose 88. LFTs mildly elevated. Troponins also elevated, likely related to anemia and demand/supply. Stool occult was positive. Normal saline is infusing at 75 ML's per hour. Blood pressure is normalized. ECG shows atrial fibrillation with SVR and RBBB, No obvious acute ischemic changes. afebrile. He will be monitored in the intensive care unit. The patient is seen today 04/17/2023 in follow-up in the intensive care unit. He is currently sitting up at the bedside. Awake and alert in no acute distress. He is maintaining O2 saturations in the 90s on 2 L/m per nasal cannula. Normal saline at 50 MLS per hour. He remains in atrial fibrillation and controlled ventricular response. He is status post 3 units of packed red blood cells this admission. Current hemoglobin 8.5. He did undergo EGD yesterday that revealed evidence of gastritis but no acute bleeding. The plan is for colonoscopy today. White count 8.6. Sodium 139. Potassium 4.3. Bicarb 27. BUN 53. Creatinine 1.05. AST 205. ALT 214. Alk phos 109. He remains nothing by mouth. Remains on IV Protonix. Cardiogram revealed preserved left ventricular systolic function. There is severely dilated right ventricle with moderate pulmonary hypertension. The patient is seen today 04/18/2023 in follow-up in the intensive care unit. He is currently resting comfortably in bed. Awake and alert in no acute di stress. Just a bit drowsy. He did undergo colonoscopy this morning and was found to have a 6 mm polyp status post cold biopsy, 5 mm ascending colon polyp status post cold biopsy, 3 mm descending colon polyp status post cold biopsy. Moderate sigmoid diverticulosis. Small internal hemorrhoids. No evidence of acute GI bleeding. Once for small bowel capsule endoscopy today. Chest x-ray reveals cardiomegaly, pulmonary vascular congestion and bilateral pleural effusions. He is status post 3 units of packed red blood cells this admission. Current hemoglobin 8.5. Platelets 150. White count 7.5. Sodium 141. Potassium 3.9. Bicarb 27. BUN 23. Creatinine 0.82. Glucose 99. AST 116. ALT 173. Remains on IV Protonix. The patient is seen today 04/19/2023 in follow-up on the regular medical floor. He was transferred out of the intensive care unit yesterday. He is currently awake and alert. He had an episode of shortness of breath earlier this morning while on room air. He was placed on 3 L nasal cannula and is feeling much better. His room air saturation was 89%. He is currently at 98%. Denies any worsening shortness of breath, cough or congestion. He has been afebrile. Hemodynamically stable. Mean arterial pressures in the 90s. Today's labs are pending. He is continued on IV Protonix. Anticoagulated with Xarelto. No active GI bleeding. The patient is seen today 04/20/2023 in follow-up on the regular medical floor. He is currently sitting up in bed. Awake and alert in no acute distress. Breathing quite a bit better today compared to yesterday. He is maintaining good O2 saturations in the 90s on room air. No IV fluids. No active GI bleeding. He did receive 3 units of packed red blood cells this admission. White count 7.9. Hemoglobin 8.5. Platelets 187. He is on Xarelto. Objective - Vital Signs Vital signs: Vital Signs Temp 98.4 F 04/20/23 08:00 Pulse 86 04/20/23 08:00 Resp 19 04/20/23 08:00 BP 132/83 04/20/23 08:00 Pulse Ox 92 L 04/20/23 08:34 FiO2 Intake & Output 04/19/23 04/20/23 04/20/23 18:59 06:59 18:59 Intake Total 360 Balance 360 Intake: Oral 360 Other: Voiding Method Bedside Commode Toilet Toilet Bedside Commode # Voids 2 - Exam GENERAL EXAM: Alert, oriented 3, pleasant 82-year-old male, resting in bed, in no apparent distress. HEAD: Normocephalic and atraumatic EYES: Normal reaction of pupils, equal size. NOSE: Clear with pink turbinates. THROAT: No erythema or exudates. NECK: No masses, no JVD. CHEST: No chest wall deformity. LUNGS: Equal air entry with diminished bibasilar lung sounds. No wheezes, rhonchi, crackles. CVS: S1 and S2 normal with grade 2 systolic murmur, irregular rhythm. No other extra heart sounds ABDOMEN: No hepatosplenomegaly, active bowel sounds, no guarding or rigidity. There is small periumbilical hernia Genitourinary: Large scrotal edema/suspected hydrocele, nontender SPINE: No scoliosis or deformity SKIN: No rashes CENTRAL NERVOUS SYSTEM: No focal deficits, tone is normal in all 4 extremities. EXTREMITIES: There is no peripheral edema, clubbing, or cyanosis. Peripheral pulses are intact. - Labs CBC & Chem 7: 04/20/23 05:29 04/19/23 06:06 Labs: Abnormal Lab Results - Last 24 Hours (Table) 04/20/23 Range/Units 05:29 RBC 3.08 L (4.40-5.60) X 10*6/uL Hgb 8.5 L (13.0-17.0) g/dL Hct 28.3 L (39.6-50.0) % MCHC 30.0 L (32.0-37.0) g/dL RDW 17.2 H (11.5-14.5) % Lymphocytes # 0.77 L (0.90-5.00) X 10*3/uL Monocytes # 1.05 H (0.20-1.00) X 10*3/uL Assessment and Plan Assessment: Severe symptomatic anemia, status post transfusion 3 units PRBCs, improving. Current hemoglobin 8.5. Status post EGD from 04/16/2023 revealed evidence of gastritis but no active bleeding. Colonoscopy today 04/18/2023 revealed some small polyps, moderate sigmoid diverticulosis, small internal hemorrhoids but no active bleeding. Plan is for small bowel capsule endoscopy. Hypotension, related to hypovolemia and above, recovered. Mean arterial pressures in the 90s Acute hypoxemic respiratory failure related to diastolic CHF exacerbation. Chest CTA demonstrates cardiomegaly, moderate to large bilateral pleural effusions, reflex contrast to the liver, seen with congestive heart failure. Echocardiogram reveals severe right ventricular dilatation. Moderate pulmonary hypertension. RVSP 40 mmHg. Reduced right ventricular global function. Moderate mitral and severe tricuspid regurgitation. Mild aortic stenosis. Improved and on room air Generalized weakness, secondary to anemia, improved Paroxysmal atrial fibrillation, currently with slow ventricular response, anticoagulated on Xarelto Acute kidney injury, prerenal, recovered Elevated troponin, likely related to demand ischemia Mildly elevated LFTs History of asthma, stable History of thyroid cancer status post thyroidectomy and hypothyroidism Coronary artery disease, with remote history of CABG Hyperlipidemia Bilateral hydrocele, asymptomatic Obesity with a BMI of 31.2 kg/m Plan: The patient was seen and evaluated Medications and labs reviewed No active GI bleeding noted Hemoglobin stable at 8.5 Cardiology and GI services are following Currently on room air Stable for discharge from the pulmonary standpoint This patient was seen independently by the pulmonary nurse practitioner I have personally seen and examined the patient, performed the documentation and the assessment and plan as written. Number of minutes spent on the visit: 22.
[2023-04-20 10:38] LABS: BUN/Creat Ratio 14.38 Ratio (12.00-20.00); Blood Urea Nitrogen 11.5 mg/dL (9.0-27.0); Calcium 8.5 mg/dL (8.7-10.3); Carbon Dioxide 28.6 mmol/L (21.6-31.8); Chloride 107 mmol/L (96-109); Glucose 115 mg/dL (70-110); Potassium 3.8 mmol/L (3.5-5.5); Sodium 143 mmol/L (135-145)
--- NOTE | 2023-04-20 11:35 | XR ---
EXAMINATION TYPE: XR chest 1V portable DATE OF EXAM: 04/20/2023 11:21 AM CLINICAL INDICATION:Male, 82 years old with history of sob; [facility] COMPARISON: Chest radiographs from 04/18/2023. TECHNIQUE: XR chest 1V portable Frontal view of the chest. FINDINGS: Lungs/Pleura: No evidence of focal consolidation or pneumothorax. Blunting of the costophrenic angles is present. Pulmonary vascularity: Pulmonary vascular congestion. Heart/mediastinum: Cardiomediastinal silhouette is enlarged and stable. Atherosclerotic calcificatio ns are seen in the aorta. Musculoskeletal: No acute osseous pathology. Midline sternotomy wires are noted. IMPRESSION: Cardiomegaly, pulmonary vascular congestion and bilateral pleural effusions. Correlate with BNP for c ongestive heart failure.
--- NOTE | 2023-04-20 12:26 | PN ---
PROGRESS NOTE DATE OF SERVICE: 04/20/2023 SUBJECTIVE: This 82-year-old gentleman admitted with symptomatic anemia, is not feeling well today. The patient also is mildly hypoxic at this time. Hemoglobin is 8.5, down from 9.8. LFTs are noted. PAST MEDICAL HISTORY: Reviewed. REVIEW OF SYSTEMS: A 14-point review is negative except as mentioned earlier. CURRENT MEDICATIONS: Reviewed include Synthroid, dose and rest of medications noted. PHYSICAL EXAMINATION: VITAL SIGNS: Pulse is 86, blood pressure 130/83, and pulse ox 90% on room air. HEENT: Conjunctivae normal. NECK: No jugular venous distention. CARDIOVASCULAR: S1, S2. RESPIRATIONS: Diminished at the bases, few scattered rhonchi. ABDOMEN: Soft. NERVOUS SYSTEM: No focal deficit. LABORATORY DATA: Hemoglobin 8.5, rest of the labs are noted. ASSESSMENT: 1. Acute symptomatic anemia, status post colonoscopy showing polyps and capsule endoscopy and 4 units transfusion. 2. Type 2 myocardial injury. 3. Hypoxia, mild. 4. Severe sinus bradycardia and chronic atrial fibrillation. 5. Hypertension. 6. History of gout. 7. Multiple complex medical issues. RECOMMENDATIONS: Recommended to continue current management, continue symptomatic treatment, otherwise at this time, I recommended to repeat labs, portable chest x-ray. Guarded prognosis because of the multiple complex medical issues. Further recommendations to follow. MMODL / IJN: [id number] /
[2023-04-20] MEDS: ATORVASTATIN 20 MG TAB PO SCH (22:01)
[2023-04-21] MEDS: NITROGLYCERIN OINT 1 INCH/GM PACKET TOPICAL SCH ×4 (00:19→23:18)
[2023-04-21] MEDS: LEVOTHYROXINE 100 MCG TAB PO SCH (05:43)
[2023-04-21] MEDS: LEVOTHYROXINE 50 MCG TAB PO SCH (05:43)
[2023-04-21] MEDS ORDERED: FUROSEMIDE 10 MG/ML 4 ML VIAL IV STA (07:52)
[2023-04-21] MEDS: METOPROLOL TARTRATE 25 MG TAB PO SCH ×2 (08:02→21:16)
[2023-04-21] MEDS: allopurinoL 100 MG TAB PO SCH (08:02)
[2023-04-21] MEDS: PANTOPRAZOLE 40 MG/10 ML VIAL IV SCH (08:03)
[2023-04-21 09:01] LABS: Basophils # (A) 0.04 X 10*3/uL (0.00-0.10); Basophils % (A) 0.6 %; Eosinophils # (A) 0.32 X 10*3/uL (0.04-0.35); Eosinophils % (A) 4.5 %; HCT 28.6 % (39.6-50.0); HGB 8.4 g/dL (13.0-17.0); Lymphocytes # (A) 0.84 X 10*3/uL (0.90-5.00); Lymphocytes % (A) 11.7 %; MCH 27.7 pg (27.0-32.0); MCHC 29.4 g/dL (32.0-37.0); MCV 94.4 FL (80.0-97.0); Mean Platelet Volume 11.4 FL (9.5-12.2); Monocytes % (A) 15.3 %; NRBC Per 100 WBC 0 X 10*3/uL (0.00-0.01); Neutrophils # (A) 4.85 X 10*3/uL (1.80-7.70); Neutrophils % (A) 67.5 %; Platelet Count 175 X 10*3/uL (140-440); RBC 3.03 X 10*6/uL (4.40-5.60); RDW 16.7 % (11.5-14.5); WBC 7.18 X 10*3/uL (4.50-10.00)
[2023-04-21 09:18] LABS: BUN/Creat Ratio 13.86 Ratio (12.00-20.00); Blood Urea Nitrogen 9.7 mg/dL (9.0-27.0); Glucose 103 mg/dL (70-110)
[2023-04-21 09:19] LABS: ALT 83 U/L (10-49); AST 35 U/L (14-35); Albumin 3.1 g/dL (3.8-4.9); Albumin/Globulin Ratio 1.63 Ratio (1.60-3.17); Alkaline Phosphatase 104 U/L (41-126); Calcium 8.3 mg/dL (8.7-10.3); Carbon Dioxide 29.1 mmol/L (21.6-31.8); Chloride 109 mmol/L (96-109); Globulin 1.9 g/dL (1.6-3.3); Potassium 4.1 mmol/L (3.5-5.5); Sodium 143 mmol/L (135-145); Total Bilirubin 0.5 mg/dL (0.3-1.2)
--- NOTE | 2023-04-21 11:00 | P.PN ---
Subjective Progress Note Date: 04/21/23 I am seeing this patient in consultation today 04/16/2023 after the patient presented yesterday morning with a chief complaint of generalized weakness and fatigue. He is found to be severely anemic and hypotensive, and was admitted to the intensive care unit. Patient is an 82-year-old white male with past medical history significant for atrial fibrillation anticoagulated on Xarelto, asthma, hypothyroidism post thyroidectomy, hypertension, coronary artery disease with previous CABG, among other things. As stated above, the patient presented yesterday morning with ongoing progressively worsening generalized weakness. Patient's blood pressures were low at home. He also admits is an confusion and hallucinations, but is alert and oriented at present. Largely denies any infectious symptoms. On arrival to the emergency room, he is found to be anemic with a hemoglobin of 5.8 g/dL. He was hypotensive as well, and is receiving his third unit of PRBCs. Patient was admitted to the intensive care unit for possible vasopressor support in the meantime. Patient denies any bloody bowel movements, melena, hematemesis. Denies any abdominal pain. Denies any trauma. He does take Xarelto for his history of atrial fibrillation. Heart rhythm is currently atrial fibrillation with slow ventricular response. His metoprolol and Xarelto are on hold. He was given doses of prothrombin complex and vitamin K in the emergency room. Nurses have not noticed any acute blood loss. Chest CTA done on arrival did not show any evidence of aortic dissection or aneurysm. There is diffuse atherosclerotic disease. No evidence of pulmonary embolus. There were prominent right and left main pulmonary arteries, seen with pulmonary retention. Massive cardiomegaly, moderate to large bilateral pleural effusions, reflex contrast to the, liver seen with congestive heart failure. No evidence of obstruction or free air. There was prostatemegaly with large bilateral hydroceles. Patient is currently sitting up in bed, on 3 L/m nasal cannula, in no acute distress. Most recent CBC shows a WBC count of 13.1, hemoglobin 7.6, hematocrit 24.3, platelets 168. INR was 3.1. APTT 1-1/2 times upper limit. CMP on arrival showed a sodium 138, potassium 4.9, chloride 101, serum bicarb 24, BUN 82, creatinine 1.81, glucose 88. LFTs mildly elevated. Troponins also elevated, likely related to anemia and demand/supply. Stool occult was positive. Normal saline is infusing at 75 ML's per hour. Blood pressure is normalized. ECG shows atrial fibrillation with SVR and RBBB, No obvious acute ischemic changes. afebrile. He will be monitored in the intensive care unit. The patient is seen today 04/17/2023 in follow-up in the intensive care unit. He is currently sitting up at the bedside. Awake and alert in no acute distress. He is maintaining O2 saturations in the 90s on 2 L/m per nasal cannula. Normal saline at 50 MLS per hour. He remains in atrial fibrillation and controlled ventricular response. He is status post 3 units of packed red blood cells this admission. Current hemoglobin 8.5. He did undergo EGD yesterday that revealed evidence of gastritis but no acute bleeding. The plan is for colonoscopy today. White count 8.6. Sodium 139. Potassium 4.3. Bicarb 27. BUN 53. Creatinine 1.05. AST 205. ALT 214. Alk phos 109. He remains nothing by mouth. Remains on IV Protonix. Cardiogram revealed preserved left ventricular systolic function. There is severely dilated right ventricle with moderate pulmonary hypertension. The patient is seen today 04/18/2023 in follow-up in the intensive care unit. He is currently resting comfortably in bed. Awake and alert in no acute di stress. Just a bit drowsy. He did undergo colonoscopy this morning and was found to have a 6 mm polyp status post cold biopsy, 5 mm ascending colon polyp status post cold biopsy, 3 mm descending colon polyp status post cold biopsy. Moderate sigmoid diverticulosis. Small internal hemorrhoids. No evidence of acute GI bleeding. Once for small bowel capsule endoscopy today. Chest x-ray reveals cardiomegaly, pulmonary vascular congestion and bilateral pleural effusions. He is status post 3 units of packed red blood cells this admission. Current hemoglobin 8.5. Platelets 150. White count 7.5. Sodium 141. Potassium 3.9. Bicarb 27. BUN 23. Creatinine 0.82. Glucose 99. AST 116. ALT 173. Remains on IV Protonix. The patient is seen today 04/19/2023 in follow-up on the regular medical floor. He was transferred out of the intensive care unit yesterday. He is currently awake and alert. He had an episode of shortness of breath earlier this morning while on room air. He was placed on 3 L nasal cannula and is feeling much better. His room air saturation was 89%. He is currently at 98%. Denies any worsening shortness of breath, cough or congestion. He has been afebrile. Hemodynamically stable. Mean arterial pressures in the 90s. Today's labs are pending. He is continued on IV Protonix. Anticoagulated with Xarelto. No active GI bleeding. The patient is seen today 04/20/2023 in follow-up on the regular medical floor. He is currently sitting up in bed. Awake and alert in no acute distress. Breathing quite a bit better today compared to yesterday. He is maintaining good O2 saturations in the 90s on room air. No IV fluids. No active GI bleeding. He did receive 3 units of packed red blood cells this admission. White count 7.9. Hemoglobin 8.5. Platelets 187. He is on Xarelto. The patient is seen today 04/21/2023 in follow-up on the regular medical floor. He is sitting up in bed. Awake and alert. He is a bit more weak and tired again today. A bit somnolent. He is maintaining good O2 saturations in the 90s on 2 L/m per nasal cannula. No IV fluids. Hemoglobin is stable at 8.4. No active bleeding noted. White count is 7.1. Platelets are 175. Sodium 143. Potassium 4.1 bicarb 29. BUN 10. Creatinine 0.7. Glucose 103. AST 35. ALT 83. X-ray had revealed cardiomegaly, pulmonary vascular congestion and bilateral pleural effusions. He is receiving Lasix 40 mg IVP 1 this morning. He remains anticoagulated with Xarelto. Objective - Vital Signs Vital signs: Vital Signs Temp 98.3 F 04/21/23 07:43 Pulse 79 04/21/23 07:43 Resp 18 04/21/23 07:43 BP 147/89 04/21/23 07:43 Pulse Ox 96 04/21/23 09:38 FiO2 Intake & Output 04/20/23 04/21/23 04/21/23 18:59 06:59 18:59 Intake Total 540 Balance 540 Intake: Oral 540 Other: Voiding Method Toilet Toilet # Voids 3 2 1 - Exam GENERAL EXAM: Alert, weak, fatigued 82-year-old male, on 2 L nasal cannula, in no apparent distress. HEAD: Normocephalic and atraumatic EYES: Normal reaction of pupils, equal size. NOSE: Clear with pink turbinates. THROAT: No erythema or exudates. NECK: No masses, no JVD. CHEST: No chest wall deformity. LUNGS: Equal air entry with bibasilar crackles. CVS: S1 and S2 normal with grade 2 systolic murmur, irregular rhythm. No other extra heart sounds ABDOMEN: No hepatosplenomegaly, active bowel sounds, no guarding or rigidity. There is small periumbilical hernia Genitourinary: Large scrotal edema/suspected hydrocele, nontender SPINE: No scoliosis or deformity SKIN: No rashes CENTRAL NERVOUS SYSTEM: No focal deficits, tone is normal in all 4 extremities. EXTREMITIES: There is no peripheral edema, clubbing, or cyanosis. Peripheral pulses are intact. - Labs CBC & Chem 7: 04/21/23 06:34 04/21/23 06:34 Labs: Abnormal Lab Results - Last 24 Hours (Table) 04/21/23 04/21/23 Range/Units 06:34 06:34 RBC 3.03 L (4.40-5.60) X 10*6/uL Hgb 8.4 L (13.0-17.0) g/dL Hct 28.6 L (39.6-50.0) % MCHC 29.4 L (32.0-37.0) g/dL RDW 16.7 H (11.5-14.5) % Lymphocytes # 0.84 L (0.90-5.00) X 10*3/uL Monocytes # 1.10 H (0.20-1.00) X 10*3/uL Calcium 8.3 L (8.7-10.3) mg/dL ALT 83 H (10-49) U/L Total Protein 5.0 L (6.2-8.2) g/dL Albumin 3.1 L (3.8-4.9) g/dL Assessment and Plan Assessment: Severe symptomatic anemia, status post transfusion 3 units PRBCs, improving. Current hemoglobin 8.5. Status post EGD from 04/16/2023 revealed evidence of gastritis but no active bleeding. Colonoscopy today 04/18/2023 revealed some small polyps, moderate sigmoid diverticulosis, small internal hemorrhoids but no active bleeding. Plan is for small bowel capsule endoscopy. Hypotension, related to hypovolemia and above, recovered. Mean arterial pressures in the 90s Acute hypoxemic respiratory failure related to diastolic CHF exacerbation. Chest CTA demonstrates cardiomegaly, moderate to large bilateral pleural eff usions, reflex contrast to the liver, seen with congestive heart failure. Echocardiogram reveals severe right ventricular dilatation. Moderate pulmonary hypertension. RVSP 40 mmHg. Reduced right ventricular global function. Moderate mitral and severe tricuspid regurgitation. Mild aortic stenosis. Generalized weakness, secondary to anemia Paroxysmal atrial fibrillation, currently with slow ventricular response, anticoagulated on Xarelto Acute kidney injury, prerenal, recovered Elevated troponin, likely related to demand ischemia Mildly elevated LFTs, trending down History of asthma, stable History of thyroid cancer status post thyroidectomy and hypothyroidism Coronary artery disease, with remote history of CABG Hyperlipidemia Bilateral hydrocele, asymptomatic Obesity with a BMI of 35.8 kg/m Plan: The patient was seen and evaluated More weak and fatigued today CODE STATUS should be addressed Chest x-ray. medications and labs reviewed Lasix 40 mg IVP 1 today No active GI bleeding noted Hemoglobin stable at 8.4 Titrate the FiO2 as tolerated Cardiology and GI services are following This patient was seen independently by the pulmonary nurse practitioner I have personally seen and examined the patient, performed the documentation and the assessment and plan as written. Number of minutes spent on the visit: 24.
[2023-04-21] MEDS: ATORVASTATIN 20 MG TAB PO SCH (21:16)
--- NOTE | 2023-04-21 21:47 | PN ---
PROGRESS NOTE DATE OF SERVICE: 04/21/2023 SUBJECTIVE: This is an 82-year-old gentleman admitted with symptomatic anemia, is being closely monitored at this time. Hemoglobin is today 8.4 from 8.5. The patient has less shortness of breath and hypoxia also. No chest pain. No palpitation. PAST MEDICAL HISTORY: Reviewed. REVIEW OF SYSTEMS: A 14-point review is negative except as mentioned earlier. Chest x-ray showed significant cardiomegaly. CURRENT MEDICATIONS: Reviewed include Synthroid. Dose and rest of medications noted. PHYSICAL EXAMINATION: VITAL SIGNS: Pulse is 66, blood pressure 120/60, respirations 18. CHEST: A few scattered rhonchi and crackles. ABDOMEN: Soft. NERVOUS SYSTEM: Nonfocal. LABORATORY DATA: Hemoglobin noted. Rest of the labs are also noted. ASSESSMENT: 1. Acute symptomatic anemia, status post colonoscopy showing polyps and capsule endoscopy results pending at this time, status post 4 units of transfusion. 2. Hypoxia. 3. Type 2 myocardial injury. 4. Significant cardiomegaly. 5. Symptomatic anemia, severe. 6. Severe sinus bradycardia with chronic atrial fibrillation. 7. Hypertension. 8. History of gout. 9. Multiple complex medical issues. RECOMMENDATIONS: Recommend to continue current management and continue symptomatic treatment, otherwise hemoglobin was and currently is only 8.4. Hemoglobin was 12.5 few months ago. The patient is acutely symptomatic. I would recommend 1 more unit of transfusion with Lasix 20 after that and continue to monitor. Repeat labs will be ordered. Further recommendations to follow. The patient is restarted on Xarelto. MMODL / IJN: [id number] / MTDD
[2023-04-22] MEDS: LEVOTHYROXINE 50 MCG TAB PO SCH (06:31)
[2023-04-22] MEDS: LEVOTHYROXINE 100 MCG TAB PO SCH (06:31)
[2023-04-22 08:16] VITALS: RESP 16; TEMP 98.4; BMI 35.8
[2023-04-22] MEDS: NITROGLYCERIN OINT 1 INCH/GM PACKET TOPICAL SCH ×2 (08:52→16:18)
[2023-04-22] MEDS: PANTOPRAZOLE 40 MG/10 ML VIAL IV SCH (08:52)
[2023-04-22] MEDS: METOPROLOL TARTRATE 25 MG TAB PO SCH (08:53)
[2023-04-22] MEDS: allopurinoL 100 MG TAB PO SCH (08:53)
[2023-04-22] MEDS ORDERED: FUROSEMIDE 40 MG TAB PO SCH (09:00)
[2023-04-22 10:47] LABS: Basophils # (A) 0.05 X 10*3/uL (0.00-0.10); Basophils % (A) 0.6 %; Eosinophils # (A) 0.34 X 10*3/uL (0.04-0.35); Eosinophils % (A) 4.4 %; HCT 32.3 % (39.6-50.0); HGB 9.4 g/dL (13.0-17.0); Lymphocytes # (A) 1.21 X 10*3/uL (0.90-5.00); Lymphocytes % (A) 15.7 %; MCH 27.6 pg (27.0-32.0); MCHC 29.1 g/dL (32.0-37.0); Mean Platelet Volume 11.4 FL (9.5-12.2); Monocytes # (A) 1.07 X 10*3/uL (0.20-1.00); Monocytes % (A) 13.9 %; NRBC Per 100 WBC 0 X 10*3/uL (0.00-0.01); Neutrophils # (A) 5.01 X 10*3/uL (1.80-7.70); Neutrophils % (A) 64.9 %; Platelet Count 200 X 10*3/uL (140-440); RDW 16.4 % (11.5-14.5); WBC 7.72 X 10*3/uL (4.50-10.00)
[2023-04-22 10:51] LABS: ALT 78 U/L (10-49); AST 30 U/L (14-35); Albumin 3.3 g/dL (3.8-4.9); Albumin/Globulin Ratio 1.57 Ratio (1.60-3.17); Alkaline Phosphatase 111 U/L (41-126); Blood Urea Nitrogen 11.2 mg/dL (9.0-27.0); Calcium 8.6 mg/dL (8.7-10.3); Carbon Dioxide 31.5 mmol/L (21.6-31.8); Chloride 106 mmol/L (96-109); Globulin 2.1 g/dL (1.6-3.3); Glucose 96 mg/dL (70-110); Potassium 3.8 mmol/L (3.5-5.5); Sodium 143 mmol/L (135-145); Total Bilirubin 0.6 mg/dL (0.3-1.2); Total Protein 5.4 g/dL (6.2-8.2)
[2023-04-22] MEDS ORDERED: ZINC OXIDE PASTE (Z-GUARD) 1 APPLIC TOPICAL PRN (12:31)
--- NOTE | 2023-04-22 12:59 | XR ---
EXAMINATION TYPE: XR chest 1V portable DATE OF EXAM: 04/22/2023 Comparison: 04/20/2023 Clinical History: 82-year-old male sob Findings: Median sternotomy wires are present with post-CABG clips. Heart remains moderately enlarged. Underlyi ng small to moderate pleural effusions with underlying basilar opacities. Impression: Ongoing moderate cardiomegaly with moderate bilateral pleural effusions and adjacent atelectasis and/ or consolidation.
[2023-04-22 13:03] VITALS: BP 135/81; PULSE 73
--- NOTE | 2023-04-22 20:14 | P.PN ---
Subjective Progress Note Date: 04/22/23 I am seeing this patient in consultation today 04/16/2023 after the patient presented yesterday morning with a chief complaint of generalized weakness and fatigue. He is found to be severely anemic and hypotensive, and was admitted to the intensive care unit. Patient is an 82-year-old white male with past medical history significant for atrial fibrillation anticoagulated on Xarelto, asthma, hypothyroidism post thyroidectomy, hypertension, coronary artery disease with previous CABG, among other things. As stated above, the patient presented yesterday morning with ongoing progressively worsening generalized weakness. Patient's blood pressures were low at home. He also admits is an confusion and hallucinations, but is alert and oriented at present. Largely denies any infectious symptoms. On arrival to the emergency room, he is found to be anemic with a hemoglobin of 5.8 g/dL. He was hypotensive as well, and is receiving his third unit of PRBCs. Patient was admitted to the intensive care unit for possible vasopressor support in the meantime. Patient denies any bloody bowel movements, melena, hematemesis. Denies any abdominal pain. Denies any trauma. He does take Xarelto for his history of atrial fibrillation. Heart rhythm is currently atrial fibrillation with slow ventricular response. His metoprolol and Xarelto are on hold. He was given doses of prothrombin complex and vitamin K in the emergency room. Nurses have not noticed any acute blood loss. Chest CTA done on arrival did not show any evidence of aortic dissection or aneurysm. There is diffuse atherosclerotic disease. No evidence of pulmonary embolus. There were prominent right and left main pulmonary arteries, seen with pulmonary retention. Massive cardiomegaly, moderate to large bilateral pleural effusions, reflex contrast to the, liver seen with congestive heart failure. No evidence of obstruction or free air. There was prostatemegaly with large bilateral hydroceles. Patient is currently sitting up in bed, on 3 L/m nasal cannula, in no acute distress. Most recent CBC shows a WBC count of 13.1, hemoglobin 7.6, hematocrit 24.3, platelets 168. INR was 3.1. APTT 1-1/2 times upper limit. CMP on arrival showed a sodium 138, potassium 4.9, chloride 101, serum bicarb 24, BUN 82, creatinine 1.81, glucose 88. LFTs mildly elevated. Troponins also elevated, likely related to anemia and demand/supply. Stool occult was positive. Normal saline is infusing at 75 ML's per hour. Blood pressure is normalized. ECG shows atrial fibrillation with SVR and RBBB, No obvious acute ischemic changes. afebrile. He will be monitored in the intensive care unit. The patient is seen today 04/17/2023 in follow-up in the intensive care unit. He is currently sitting up at the bedside. Awake and alert in no acute distress. He is maintaining O2 saturations in the 90s on 2 L/m per nasal cannula. Normal saline at 50 MLS per hour. He remains in atrial fibrillation and controlled ventricular response. He is status post 3 units of packed red blood cells this admission. Current hemoglobin 8.5. He did undergo EGD yesterday that revealed evidence of gastritis but no acute bleeding. The plan is for colonoscopy today. White count 8.6. Sodium 139. Potassium 4.3. Bicarb 27. BUN 53. Creatinine 1.05. AST 205. ALT 214. Alk phos 109. He remains nothing by mouth. Remains on IV Protonix. Cardiogram revealed preserved left ventricular systolic function. There is severely dilated right ventricle with moderate pulmonary hypertension. The patient is seen today 04/18/2023 in follow-up in the intensive care unit. He is currently resting comfortably in bed. Awake and alert in no acute d istress. Just a bit drowsy. He did undergo colonoscopy this morning and was found to have a 6 mm polyp status post cold biopsy, 5 mm ascending colon polyp status post cold biopsy, 3 mm descending colon polyp status post cold biopsy. Moderate sigmoid diverticulosis. Small internal hemorrhoids. No evidence of acute GI bleeding. Once for small bowel capsule endoscopy today. Chest x-ray reveals cardiomegaly, pulmonary vascular congestion and bilateral pleural effusions. He is status post 3 units of packed red blood cells this admission. Current hemoglobin 8.5. Platelets 150. White count 7.5. Sodium 141. Potassium 3.9. Bicarb 27. BUN 23. Creatinine 0.82. Glucose 99. AST 116. AL T 173. Remains on IV Protonix. The patient is seen today 04/19/2023 in follow-up on the regular medical floor. He was transferred out of the intensive care unit yesterday. He is currently awake and alert. He had an episode of shortness of breath earlier this morning while on room air. He was placed on 3 L nasal cannula and is feeling much better. His room air saturation was 89%. He is currently at 98%. Denies any worsening shortness of breath, cough or congestion. He has been afebrile. Hemodynamically stable. Mean arterial pressures in the 90s. Today's labs are pending. He is continued on IV Protonix. Anticoagulated with Xarelto. No active GI bleeding. The patient is seen today 04/20/2023 in follow-up on the regular medical floor. He is currently sitting up in bed. Awake and alert in no acute distress. Breathing quite a bit better today compared to yesterday. He is maintaining good O2 saturations in the 90s on room air. No IV fluids. No active GI bleeding. He did receive 3 units of packed red blood cells this admission. White count 7.9. Hemoglobin 8.5. Platelets 187. He is on Xarelto. The patient is seen today 04/21/2023 in follow-up on the regular medical floor. He is sitting up in bed. Awake and alert. He is a bit more weak and tired again today. A bit somnolent. He is maintaining good O2 saturations in the 90s on 2 L/m per nasal cannula. No IV fluids. Hemoglobin is stable at 8.4. No active bleeding noted. White count is 7.1. Platelets are 175. Sodium 143. Potassium 4.1 bicarb 29. BUN 10. Creatinine 0.7. Glucose 103. AST 35. ALT 83. X-ray had revealed cardiomegaly, pulmonary vascular congestion and bilateral pleural effusions. He is receiving Lasix 40 mg IVP 1 this morning. He remains anticoagulated with Xarelto. On today's evaluation of 04/22/2020, the patient is stable. No evidence of any GI bleeding. The patient has diverticulosis which could have been contributing to his GI xarelto and this was given to him for chronic A. fib. Hemoglobin is at 9.4, Gemini at all stable. He is currently on 2 L of oxygen by nasal cannula with a pulse of 79%. Pulse ox on room air is around 92-93%. The chest x-ray from today shows cardiomegaly with small bilateral pleural effusions and atelectatic changes in lung base bilaterally, the patient is to be discharged home on Lasix 40 mg by mouth daily. Anticoagulation is to be resumed. Objective - Vital Signs Vital signs: Vital Signs Temp 98.4 F 04/22/23 12: Pulse 73 04/22/23 12: Resp 16 04/22/23 12:23 BP 135/81 04/22/23 12:23 Pulse Ox 99 04/22/23 12:23 FiO2 Intake & Output 04/21/23 04/22/23 04/22/23 18:59 06:59 18:59 Weight 103.7 kg Other: Voiding Method Toilet Toilet Toilet Diaper Diaper # Voids 2 3 1 - Exam GENERAL EXAM: Alert, weak, fatigued 82-year-old male, on 2 L nasal cannula, in no apparent distress. HEAD: Normocephalic and atraumatic EYES: Normal reaction of pupils, equal size. NOSE: Clear with pink turbinates. THROAT: No erythema or exudates. NECK: No masses, no JVD. CHEST: No chest wall deformity. LUNGS: Equal air entry with bibasilar crackles. CVS: S1 and S2 normal with grade 2 systolic murmur, irregular rhythm. No other extra heart sounds ABDOMEN: No hepatosplenomegaly, active bowel sounds, no guarding or rigidity. There is small periumbilical hernia Genitourinary: Large scrotal edema/suspected hydrocele, nontender SPINE: No scoliosis or deformity SKIN: No rashes CENTRAL NERVOUS SYSTEM: No focal deficits, tone is normal in all 4 extremities. EXTREMITIES: There is no peripheral edema, clubbing, or cyanosis. Peripheral pulses are intact. - Labs CBC & Chem 7: 04/22/23 06:19 04/22/23 06:19 Labs: Abnormal Lab Results - Last 24 Hours (Table) 04/21/23 04/22/23 04/22/23 Range/Units 15:47 06:19 06:19 RBC 3.40 L (4.40-5.60) X 10*6/uL Hgb 9.4 L (13.0-17.0) g/dL Hct 32.3 L (39.6-50.0) % MCHC 29.1 L (32.0-37.0) g/dL RDW 16.4 H (11.5-14.5) % Monocytes # 1.07 H (0.20-1.00) X 10*3/uL Calcium 8.6 L (8.7-10.3) mg/dL ALT 78 H (10-49) U/L Total Protein 5.4 L (6.2-8.2) g/dL Albumin 3.3 L (3.8-4.9) g/dL Albumin/Globulin Ratio 1.57 L (1.60-3.17) Ratio Crossmatch See Detail Assessment and Plan Plan: Severe symptomatic anemia, status post transfusion 3 units PRBCs, improving. Current hemoglobin 8.5. Status post EGD from 04/16/2023 revealed evidence of gastritis but no active bleeding. Colonoscopy today 04/18/2023 revealed some small polyps, moderate sigmoid diverticulosis, small internal hemorrhoids but no active bleeding. Plan is for small bowel capsule endoscopy. The patient is currently free of any GI bleed. Hemoglobin is stable Hypotension, related to hypovolemia and above, recovered. Acute hypoxemic respiratory failure related to diastolic CHF exacerbation. Chest CTA demonstrates cardiomegaly, moderate to large bilateral pleural effusions, reflex contrast to the liver, seen with congestive heart failure. Echocardiogram reveals severe right ventricular dilatation. Moderate pulmonary hypertension. RVSP 40 mmHg. Reduced right ventricular global function. Moderate mitral and severe tricuspid regurgitation. Mild aortic stenosis. Generalized weakness, secondary to anemia Paroxysmal atrial fibrillation, currently with slow ventricular response, anticoagulated on Xarelto Acute kidney injury, prerenal, recovered Elevated troponin, likely related to demand ischemia Mildly elevated LFTs, trending down History of asthma, stable History of thyroid cancer status post thyroidectomy and hypothyroidism Coronary artery disease, with remote history of CABG Hyperlipidemia Bilateral hydrocele, asymptomatic Obesity with a BMI of 35.8 kg/m Plan: Hemoglobin is stable Continue diuretics Cognition profile cardiology and primary care, high risk for rebleed Patient was titrated to room air oxygen Pulmonary and critical care services will sign off
--- NOTE | 2023-04-23 09:35 | P.DS ---
Providers Date of admission: 04/15/23 15:55 Expected date of discharge: 04/22/23 Attending physician: Bertin Casas Consults: 04/15/23 15:55 Consult Physician Stat Consulting Provider: Delio Poon Consult Reason/Comments: Critical care management Do you want consulting provider notified?: Yes Consult Physician Urgent Consulting Provider: [facility] Consult Reason/Comments: Elevated troponin Do you want consulting provider notified?: Yes Consult Physician Urgent Consulting Provider: Mahnaz Wheeler Consult Reason/Comments: Anemia Do you want consulting provider notified?: Yes Primary care physician: Bertin Casas Hospital Course: Final diagnosis Acute symptomatic anemia, status post colonoscopy showing polyps and capsule endoscopy results pending, status post 4 units of transfusion this admission Hypoxia likely secondary to above as well as CHF diastolic dysfunction, acute exacerbation Acute hypoxic respiratory failure secondary to severe anemia as well as CHF exacerbation Type 2 myocardial injury secondary to severe symptomatic anemia and hypoxia Significant cardiomegaly Symptomatic anemia, severe severe sinus bradycardia with chronic atrial fibrillation Hypertension history History of gout Discharge disposition Patient is being discharged in a stable condition with guarded prognosis to home. Patient will follow-up with Dr. Casas in the outpatient setting upon discharge. Patient is to continue with Xarelto along with cardiac medications that have been resumed including Lasix 40 mg daily and close outpatient follow- up with cardiology as scheduled. Prescription also provided for repeat labs in the next few days to monitor hemoglobin and kidney functions. Total time taken is greater than 35 minutes. Hospital course This is a 83-year-old male who was recently admitted with symptomatic anemia and was evaluated by GI this admission and underwent colonoscopy and has received a total of 4 units of PRBCs this admission. Hemoglobin is 9.4 today and stable and Xarelto has been resumed recommend monitoring closely for any signs of bleeding and this was discussed with the at the bedside as well and close outpatient follow-up with repeat labs in the next 2 days to monitor hemoglobin. Patient also instructed to follow-up with GI outpatient for test results as well as primary care provider on discharge. Patient is adamant about going home today and has been instructed with family present to follow-up with primary care provider this week. Currently no reports of chest pain, shortness of breath, or palpitations. Patient is afebrile. No reports of nausea or vomiting and patient is tolerating diet. Patient will be discharged home today. Guarded prognosis and high risk for readmission given patient's age and significant comorbidities Physical exam: Gen: This is a 83-year-old male who is awake, alert and oriented 2-3, well- developed, well-nourished, obese HEENT: Head is atraumatic, normocephalic. Pupils equal, round. Sclerae is anicteric. NECK: Supple. No JVD. No lymphadenopathy. No thyromegaly. LUNGS: Diminished breath sounds bilaterally with scattered rhonchi. No intercostal retractions. HEART: S1, S2 are muffled ABDOMEN: Soft. Bowel sounds are present. No masses. No tenderness. EXTREMITIES: No pedal edema. No calf tenderness. Mild lower extremity edema noted bilaterally NEUROLOGICAL: Patient is awake, alert and oriented x2-, baseline 3. Cranial nerves 2 through 12 are grossly intact. Diffusely weak Please refer to medication reconciliation sheet for a list of medications. The impression and plan of care has been dictated by Irais Leon, Nurse Practitioner as directed. Dr. Cholo MD I have performed a history and examination and MDM of this patient, discussed the same with the dictator, and agree with the dictator's assessment and plan as written ,documented as a scribe. Based on total visit time, I have performed more than 50% of the visit. Patient Condition at Discharge: Fair Plan - Discharge Summary Discharge Rx Participant: Yes New Discharge Prescriptions: New Rivaroxaban [Xarelto] 15 mg PO W/SUPPER #30 tab Metoprolol Tartrate [Lopressor] 25 mg PO BID #30 tab Continue Ramipril 10 mg PO HS amLODIPine [Norvasc] 5 mg PO DAILY allopurinoL [Zyloprim] 100 mg PO DAILY Simvastatin [Zocor] 40 mg PO HS Levothyroxine Sodium [Synthroid] 300 mcg PO DAILY Potassium Chloride [Klor-Con 20] 20 meq PO HS Furosemide [Lasix] 40 mg PO DAILY Levothyroxine Sodium [Synthroid] 50 mcg PO DAILY Discontinued Rivaroxaban [Xarelto] 20 mg PO HS Metoprolol Tartrate [Lopressor] 50 mg PO BID Discharge Medication List Ramipril 10 mg PO HS 03/22/14 [History] allopurinoL [Zyloprim] 100 mg PO DAILY 03/22/14 [History] amLODIPine [Norvasc] 5 mg PO DAILY 03/22/14 [History] Furosemide [Lasix] 40 mg PO DAILY 07/15/18 [History] Levothyroxine Sodium [Synthroid] 300 mcg PO DAILY 07/15/18 [History] Potassium Chloride [Klor-Con 20] 20 meq PO HS 07/15/18 [History] Simvastatin [Zocor] 40 mg PO HS 07/15/18 [History] Levothyroxine Sodium [Synthroid] 50 mcg PO DAILY 04/15/23 [History] Metoprolol Tartrate [Lopressor] 25 mg PO BID #30 tab 04/19/23 [Rx] Rivaroxaban [Xarelto] 15 mg PO W/SUPPER #30 tab 04/19/23 [Rx] Follow up Appointment(s)/Referral(s): Reina Velázquez MD [STAFF PHYSICIAN] - 1 Week (please call the office to schedule a follow up appointment) Bertin Casas MD [Primary Care Provider] - 1-2 days (please call the office to schedule a follow up appointment) [facility], [NON-STAFF] - 1 Week Ambulatory/Diagnostic Orders: Complete Blood Count w/diff [LAB.AMB] Time Frame: 3 Days, Location: None Selected Complete Blood Count w/diff [LAB.AMB] Location: None Selected Activity/Diet/Wound Care/Special Instructions: Activity Limited until follow-up Follow-up with primary care provider on discharge Follow-up cardiology outpatient Follow-up with repeat labs in 2-3 days to monitor CBC, and CMP Continue taking medications as prescribed Discharge Disposition: HOME SELF-CARE
[2023-04-24] MEDS ORDERED: RIVAROXABAN 15 MG TAB PO SCH (17:30)
== END 2023-04-22 16:19 | disposition home health service (06) | DRG 377 ==
LOC: EC 10:05 → 2SICU 15:55 → 5NMEDONC 04-18 18:57
PROVIDERS: ADMIT Internal Medicine; ATTEND Internal Medicine
PROC: 30283B1 Transfusion of Nonautologous 4-Factor Prothrombin Complex Concentrate into Vein, Percutaneous Approach (ICD-10-PCS; 2023-04-15)
PROC: 30233N1 Transfusion of Nonautologous Red Blood Cells into Peripheral Vein, Percutaneous Approach (ICD-10-PCS; 2023-04-15)
PROC: 0DJ08ZZ Inspection of Upper Intestinal Tract, Via Natural or Artificial Opening Endoscopic (ICD-10-PCS; principal; 2023-04-16 08:30)
PROC: 0DBN8ZX Excision of Sigmoid Colon, Via Natural or Artificial Opening Endoscopic, Diagnostic (ICD-10-PCS; 2023-04-18)
PROC: 0DJ08ZZ Inspection of Upper Intestinal Tract, Via Natural or Artificial Opening Endoscopic (ICD-10-PCS; 2023-04-18)
PROC: 0DBM8ZX Excision of Descending Colon, Via Natural or Artificial Opening Endoscopic, Diagnostic (ICD-10-PCS; 2023-04-18)
PROC: 0DBK8ZX Excision of Ascending Colon, Via Natural or Artificial Opening Endoscopic, Diagnostic (ICD-10-PCS; 2023-04-18)
DX: K29.71 Gastritis, unspecified, with bleeding (principal); I21.A1 Myocardial infarction type 2; I50.33 Acute on chronic diastolic (congestive) heart failure; J96.01 Acute respiratory failure with hypoxia; N17.0 Acute kidney failure with tubular necrosis; R57.8 Other shock; D68.9 Coagulation defect, unspecified; D62 Acute posthemorrhagic anemia; E66.2 Morbid (severe) obesity with alveolar hypoventilation; R00.1 Bradycardia, unspecified; E78.5 Hyperlipidemia, unspecified; Z68.35 Body mass index [BMI] 35.0-35.9, adult; I95.9 Hypotension, unspecified; E86.1 Hypovolemia; I48.0 Paroxysmal atrial fibrillation; N40.0 Benign prostatic hyperplasia without lower urinary tract symptoms; M10.9 Gout, unspecified; K57.31 Diverticulosis of large intestine without perforation or abscess with bleeding; I11.0 Hypertensive heart disease with heart failure; F10.20 Alcohol dependence, uncomplicated; I25.10 Atherosclerotic heart disease of native coronary artery without angina pectoris; I27.20 Pulmonary hypertension, unspecified; M19.90 Unspecified osteoarthritis, unspecified site; I45.10 Unspecified right bundle-branch block; N43.3 Hydrocele, unspecified; G47.00 Insomnia, unspecified; K59.00 Constipation, unspecified; T44.7X5A Adverse effect of beta-adrenoreceptor antagonists, initial encounter; R74.01 Elevation of levels of liver transaminase levels; K64.8 Other hemorrhoids; K63.5 Polyp of colon; E89.0 Postprocedural hypothyroidism; I08.1 Rheumatic disorders of both mitral and tricuspid valves; Z96.651 Presence of right artificial knee joint; Z79.01 Long term (current) use of anticoagulants; Z87.891 Personal history of nicotine dependence; Z95.1 Presence of aortocoronary bypass graft; Z85.850 Personal history of malignant neoplasm of thyroid; Z79.899 Other long term (current) drug therapy; Z79.890 Hormone replacement therapy
CPT/HCPCS: 36415; 36430; 43235; 45380; 71045; 71046; 71275; 74175; 80048; 80053; 81003; 82247; 82272; 82607; 82728; 82746; 83540; 83550; 83605; 83735; 83880; 84075; 84443; 84450; 84460; 84484; 85025; 85027; 85610; 85730; 86850; 86900; 86901; 86920; 88305; 91110; 93005; 93306; 94760; 96365; 96367; 99291

== ENCOUNTER → 2024-05-25 | Outpatient (CLI) | payer MEDICARE ==
--- NOTE | 2024-05-25 17:26 | US ---
EXAMINATION TYPE: US arterial LE single level DATE OF EXAM: 05/25/2024 2:14 PM COMPARISONS: None. CLINICAL INDICATION: Male, 84 years old with history of I73.9 PAD; TECHNIQUE: Systolic pressures were taken of the upper and lower extremity arteries with ankle-brachia l indices and toe brachial indices calculated bilaterally. History of: Smoker: Previous Hypertension: Yes Diabetic: No Hyperlipidemia: No TIA/CVA: No Previous Vascular Surgery: cardiac bypass [id number] HI: No Vascular Ulcers: No Claudication: No Gangrene: No FINDINGS: Doppler Waveforms: Right: Left: Brachial Artery systolic pressure: Right: 141 Left: 137 Posterior Tibial artery systolic pressure: Right: CNO Left: CNO Dorsalis Pedis artery systolic pressure: Right: CNO Left: CNO Ankle-Brachial Indices: Right: CNO Left: CNO IMPRESSION: 1. ABIs could not be obtained due to the inability to occlude ankle and pedal vessels likely due to m arked arteriosclerotic calcification. 2.on the right, triphasic waveforms in the femoral, popliteal and posterior tibial arteries and monop hasic waveform in the right dorsalis pedis vessel. 3. Triphasic waveforms in the left femoral and popliteal arteries. Monophasic waveforms in both the p osterior tibial and dorsalis pedis vessels 4. Findings most consistent with significant arteriosclerotic disease involving the distal lower extr emity circulation at the ankles and feet as described above. [facility], , 05/25/2024 5:24 PM
== END | disposition home or self-care (01) ==
LOC: RADUSWWP 13:31
PROVIDERS: ATTEND Internal Medicine
DX: I73.9 Peripheral vascular disease, unspecified (principal); I10 Essential (primary) hypertension; Z87.891 Personal history of nicotine dependence
CPT/HCPCS: 93922

== ENCOUNTER → 2024-11-01 | Outpatient (CLI) | payer MEDICARE ==
[2024-11-01 20:27] LABS: Iron 97.0 UG/DL (65-175); LDH 163.0 U/L (120-246); Total Iron Binding Capacity 367.0 UG/DL (228-460); Total Protein 5.6 g/dL (6.2-8.2)
[2024-11-01 20:28] LABS: Ferritin 67.1 ng/mL (22.0-322.0); Vitamin B12 574.0 pg/mL (200.0-944.0)
[2024-11-02 12:05] LABS: Free Kappa Lt Chain Qnt, Serum 2.86 mg/dL (0.33-1.94); Free Lambda Lt Chain Qnt, Seru 2.80 mg/dL (0.57-2.63)
== END | disposition home or self-care (01) ==
LOC: LABWHC1 15:58
PROVIDERS: ATTEND Internal Medicine
DX: D64.9 Anemia, unspecified (principal); R79.9 Abnormal finding of blood chemistry, unspecified
CPT/HCPCS: 36415; 82525; 82607; 82728; 82746; 83010; 83540; 83550; 83615; 83883; 84155; 84165; 85045; 86334